=== PATIENT | male | born 1945 | race Caucasian/White ===

== ENCOUNTER 2020-05-25 10:04 | Outpatient (REF) | payer MEDICARE, SELFPAY ==
[2020-05-25 12:03] LABS: Estimated Average Glucose 123 mg/dL; Hemoglobin A1c % 5.9 %
== END 2020-05-25 10:05 | disposition home or self-care (01) ==
LOC: HO.MANLDS 10:04
PROVIDERS: PCP Physician Assistant; Visit Provider Physician Assistant
DX: R73.01 Impaired fasting glucose (principal)
CPT/HCPCS: 83036

== ENCOUNTER 2023-08-31 09:09 | Outpatient (REF) | payer MEDICARE, SELFPAY ==
[2023-08-31 13:10] LABS: MANUAL DIFF FLAG NO
[2023-08-31 13:33] LABS: Basophils Percent Auto 0.4 % (0-2); Eosinophils Absolute Auto 0.2 X10*3/uL (0.0-0.4); Eosinophils Percent Auto 3.6 % (0-4); Hematocrit 46.2 % (42.0-52.0); Hemoglobin 14.9 g/dl (14.0-18.0); Imm Gran Abs Auto 0.02 X10*3/uL (0.00-0.03); Imm Gran Pct Auto 0.4 % (0.0-0.4); Lymphocytes Absolute Auto 1.6 X10*3/uL (1.2-4.9); Lymphocytes Percent Auto 34.3 % (20-40); Mean Corpuscular HGB Conc 32.3 g/dl (31.0-36.0); Mean Corpuscular Hemoglobin 29.7 pg (27.0-33.0); Mean Corpuscular Volume 92.2 fL (80.0-98.0); Mean Platelet Volume 11.1 fL (9.4-12.4); Monocytes Absolute Auto 0.5 X10*3/uL (0.1-1.2); Monocytes Percent Auto 10.4 % (2-11); Neutrophils Absolute Auto 2.4 x10*3/uL (2.0-8.3); Neutrophils Percent Auto 50.9 % (45-73); Platelet Count 191 X10*3/uL (160-400); Red Blood Count 5.01 X10*6/uL (4.60-5.80); Red Cell Distribution Width 13.3 % (11.0-16.0); White Blood Count 4.7 X10*3/uL (4.8-10.8)
[2023-08-31 14:44] LABS: Alanine Aminotransferase 25 U/L (0-40); Albumin Level 3.8 g/dL (3.5-5.0); Alkaline Phosphatase 104 U/L (39-117); Anion Gap 10 (12-20); Aspartate Amino Transferase 24 U/L (5-37); Bilirubin Total 0.7 mg/dL (0.0-1.0); Blood Urea Nitrogen 16 mg/dL (9-16); Calcium 9.6 mg/dL (8.4-10.2); Carbon Dioxide 31 mmol/L (22-29); Chloride 104 mmol/L (96-108); Cholesterol 158 mg/dL (<200); Estimated Glomerular Filt Rate > 60; Glucose Random 104 mg/dL (60-115); HDL Cholesterol 70 mg/dL (>40); LDL Cholesterol Calculated 72 mg/dL (<100); Potassium 3.8 mmol/L (3.3-5.1); Sodium 141 mmol/L (135-145); Total Protein 6.4 g/dL (6.5-8.0); Triglycerides 82 mg/dL (<150)
[2023-08-31 15:00] LABS: TSH reflex Free T4 1.23 uIU/mL (0.32-4.0)
[2023-08-31 15:07] LABS: Prostate Specific Antigen 2.74 ng/mL (<0.05-4.0)
== END 2023-08-31 09:10 | disposition home or self-care (01) ==
LOC: HO.MANLDS 09:09
PROVIDERS: Visit Provider Internal Medicine
DX: I10 Essential (primary) hypertension (principal); R63.4 Abnormal weight loss; Z12.5 Encounter for screening for malignant neoplasm of prostate
CPT/HCPCS: 36415; 80053; 80061; 84153; 84443; 85025

== ENCOUNTER 2023-12-18 12:12 | Outpatient (REF) | payer MEDICARE, SELFPAY ==
[2023-12-18 18:29] LABS: Appearance Urine Clear; Color Urine Yellow; Glucose Urine UA 100 mg/dL (Negative); Leukocyte Esterase Urine Negative (Negative); Nitrite Urine Negative (Negative); PH 5.5 (5.0-9.0); UMIC TRIGGER UACC YES; Urine Blood Small (1+) (Negative); Urine Ketones Negative (Negative); Urine Protein 100 (2+) mg/dL (Neg-Trace)
[2023-12-18 18:44] LABS: Alanine Aminotransferase 39 U/L (0-40); Albumin Level 4.2 g/dL (3.5-5.0); Alkaline Phosphatase 105 U/L (39-117); Anion Gap 14 (12-20); Aspartate Amino Transferase 37 U/L (5-37); Bilirubin Total 0.8 mg/dL (0.0-1.0); Blood Urea Nitrogen 17 mg/dL (9-16); C Reactive Protein < 0.10 mg/dL (< or = 0.50); Carbon Dioxide 26 mmol/L (22-29); Chloride 106 mmol/L (96-108); Estimated Glomerular Filt Rate 54; Gamma Glutamyl Transpeptidase 27 U/L (11-51); Glucose Random 78 mg/dL (60-115); Iron 162 mcg/dL (45-160); Lipase 27 U/L (8-78); Percent Iron Saturation 52 % (15-50); Potassium 4.1 mmol/L (3.3-5.1); Sodium 142 mmol/L (135-145); Total Iron Binding Capacity 311 mcg/dL (228-428); Total Protein 7.1 g/dL (6.5-8.0); Unsaturated Iron Binding 149 ug/dL
[2023-12-18 18:49] LABS: Amylase 70 U/L (28-100)
[2023-12-18 18:58] LABS: Bacteria Urine None Seen (None Seen); Hyaline Casts Urine 0-2 /LPF (0-2); RBC Urine 0-2 /HPF (0-2); Squamous Epithelial Cell Urine 0-2 /HPF (0-2); WBC Urine 0-5 /HPF (0-5)
[2023-12-18 19:01] LABS: Folate 7.6 ng/mL (> or = 4.0); Vitamin B12 705 pg/mL (200-900)
[2023-12-18 19:09] LABS: Ferritin 401 ng/mL (20-250); Free T4 (Free Thyroxine) 0.82 ng/dL (0.71-1.85); Thyroid Stimulating Hormone 1.08 uIU/mL (0.32-4.0)
[2023-12-18 19:35] LABS: Erythrocyte Sedimentation Rate 7 MM/HR (0-15)
[2023-12-19 07:16] LABS: Estimated Average Glucose 123 mg/dL; Hemoglobin A1c % 5.9 % (<6.0)
[2023-12-21 02:54] LABS: Lyme Abs Screen <0.90 index
[2023-12-21 03:48] LABS: Thyroid Peroxidase Antibodies 2 IU/mL (<9)
[2023-12-31 09:18] LABS: A. Phagocytophilum Ab IgG <1:64 (<1:64); A. Phagocytophilum Ab IgM <1:20 (<1:20); E. Chaffeensis Ab IgG <1:64 (<1:64); E. Chaffeensis Ab IgM <1:20 (<1:20)
== END 2023-12-18 12:13 | disposition home or self-care (01) ==
LOC: HO.MANLDS 12:12
PROVIDERS: Visit Provider Physician Assistant
DX: R63.4 Abnormal weight loss (principal); R63.0 Anorexia; E53.8 Deficiency of other specified B group vitamins; Z12.5 Encounter for screening for malignant neoplasm of prostate
CPT/HCPCS: 36415; 80053; 81001; 82150; 82607; 82728; 82746; 82977; 83036; 83540; 83690; 84153; 84439; 84443; 85652; 86140; 86376; 86617; 86618; 86666

== ENCOUNTER 2023-12-24 13:30 | Outpatient (REF) | payer MEDICARE, SELFPAY ==
[2023-12-24 13:46] LABS: OBS Int Ctl Valid YES; OBS1 NEGATIVE (NEGATIVE)
== END 2023-12-24 13:31 | disposition home or self-care (01) ==
LOC: HO.MANLNP 13:30
PROVIDERS: Visit Provider Physician Assistant
DX: R63.0 Anorexia (principal); R63.4 Abnormal weight loss
CPT/HCPCS: 82272

== ENCOUNTER 2024-09-01 15:50 | Outpatient (REF) | payer MEDICARE, SELFPAY ==
[2024-09-01 17:42] LABS: MANUAL DIFF FLAG NO
[2024-09-01 17:52] LABS: Basophils Percent Auto 0.6 % (0-2); Eosinophils Absolute Auto 0.2 X10*3/uL (0.0-0.4); Eosinophils Percent Auto 3.7 % (0-4); Hematocrit 42.6 % (42.0-52.0); Hemoglobin 13.6 g/dl (14.0-18.0); Imm Gran Abs Auto 0.01 X10*3/uL (0.00-0.03); Imm Gran Pct Auto 0.2 % (0.0-0.4); Lymphocytes Absolute Auto 1.7 X10*3/uL (1.2-4.9); Lymphocytes Percent Auto 33.5 % (20-40); Mean Corpuscular HGB Conc 31.9 g/dl (31.0-36.0); Mean Corpuscular Hemoglobin 29.8 pg (27.0-33.0); Mean Corpuscular Volume 93.4 fL (80.0-98.0); Mean Platelet Volume 11.2 fL (9.4-12.4); Monocytes Absolute Auto 0.7 X10*3/uL (0.1-1.2); Monocytes Percent Auto 14.1 % (2-11); Neutrophils Absolute Auto 2.5 x10*3/uL (2.0-8.3); Neutrophils Percent Auto 47.9 % (45-73); Platelet Count 158 X10*3/uL (160-400); Red Blood Count 4.56 X10*6/uL (4.60-5.80); Red Cell Distribution Width 14.5 % (11.0-16.0); White Blood Count 5.1 X10*3/uL (4.8-10.8)
[2024-09-01 18:29] LABS: Alanine Aminotransferase 46 U/L (0-40); Albumin Level 3.9 g/dL (3.5-5.0); Alkaline Phosphatase 127 U/L (39-117); Anion Gap 10 (12-20); Aspartate Amino Transferase 50 U/L (5-37); Bilirubin Total 0.6 mg/dL (0.0-1.0); Blood Urea Nitrogen 18 mg/dL (9-16); Carbon Dioxide 25 mmol/L (22-29); Chloride 110 mmol/L (96-108); Estimated Glomerular Filt Rate 41; Glucose Random 121 mg/dL (60-115); Sodium 141 mmol/L (135-145); Total Protein 6.9 g/dL (6.5-8.0)
[2024-09-01 18:38] LABS: Erythrocyte Sedimentation Rate 7 MM/HR (0-15)
[2024-09-01 18:43] LABS: Thyroid Stimulating Hormone 1.64 uIU/mL (0.32-4.0)
[2024-09-01 18:47] LABS: Vitamin B12 946 pg/mL (200-900)
== END 2024-09-01 15:51 | disposition home or self-care (01) ==
LOC: HO.MANLDS 15:50
PROVIDERS: Visit Provider Internal Medicine
DX: G25.0 Essential tremor (principal); R53.83 Other fatigue
CPT/HCPCS: 36415; 80053; 82607; 84443; 85025; 85652

== ENCOUNTER 2024-11-04 16:18 | Outpatient (REF) | payer MEDICARE, SELFPAY ==
--- OUTSIDE RECORDS SUMMARY | 2024-11-04 16:37 | XMS_ITS | Continuity of Care Document ---
Author Organization [facility] Address [address] [place] [address] Assessment Encounter Date Assessment Date Assessment LastModified by Organization Details LastModified Time 11/04/2024 11/04/2024 [id number] [place] [id number] (LIFE TEACHER) MDM MODERATE MUST MEET 2 OUT OF 3 ELEMENTS: PROBLEMS, DATA OR RISK ELEMENT 1: PROBLEMS ADDRESSED 1 OR MORE CHRONIC ILLNESS WITH EXACERBATION OR 2 OR MORE STABLE CHRONIC ILLNESSES OR 1 UNDIAGNOSED NEW PROBLEM OR 1 ACUTE ILLNESS W/SYMPTOMS OR 1 ACUTE COMPLICATED INJURY ELEMENT 2: DATA MUST MEET 1 OF 3 CATEGORIES CATEGORY 1: REVIEW OF PRIOR EXTERNAL NOTES, REVIEW OF RESULTS, ORDERING OF EACH TEST, ASSESSMENT REQUIRING INDEPENDENT HISTORIAN OR CATEGORY 2: INDEPENDENT INTERPRETATION OF TESTS BY ANOTHER PHYSICIAN OR SPECIALIST OR CATEGORY 3: DISCUSSION OF MGT OR TEST INTERPRETATION W/EXTERNAL PHYSICIAN OR SPECIALIST ELEMENT 3: RISK RISK OF COMPLICATIONS AND/OR MORBIDITY OR MORTALITY OF PATIENT MANAGEMENT PROVIDER MUST THOROUGHLY DOCUMENT EACH ELEMENT THAT IS COVERED Not available 11/04/2024 16:12:25 Plan of Treatment Reminders Order Date Submit Date Provider Last Modified By Organization Details Last Modified Time Details Appointments FOLLOW UP 2024 03:45P M DR SANTIAGO Not available Not available Not available FOLLOW UP 2024 04:00P M DR SANTIAGO Not available Not available Not available Nurse Visit 2024 09:30A M [facility] Not available Not available Not available Nurse Visit 2024 09:30A [facility] Not available Not available Not available Lab CMP, serum or plasma 2024 025 [facility], [address] [place] [address], [place], [address], 11/04/2024 16:18:22 CBC 2024 025 [facility], [address] [place] [address], [place], [address], 11/04/2024 16:18:22 Referral None recorded. Procedures None recorded. Surgeries None recorded. Imaging None recorded. Medication Orders fluticaso ne 113 mcg-salme terol 14 mcg/actua tion breath activated powdr 2024 025 [id number], [address] [place], [place], [id number], 11/04/2024 16:15:17 Patient TargetsNo targets recorded. Patient Instructions Encounter Date Encounter Id Patient Instructions Last Modified By Organization Details Last Modified Time 11/04/2024 [id number] pulse oximetry* Not available 11/04/2024 16:14:42 Reason for Referral None Reported. Results Created Date Observation Date Name Description Value Unit Range Abnormal Flag Note LastModifiedBy Organization Detail LastModifiedTime 11/05/1911/04/2024 pulse oxime try* Result 98 Not Available [facility] [address] [facility] [address], [place], [address], 10/05/2024 08:30:04 10/07/19 25 10/06/2024 XR, chest , 2 view No observ ation record ed. [email or web address] [address], [address], 10/06/2024 14:42:13 10/10/19 25 10/09/2024 compl ete PFT w/ post [facility] hodil ator adeel metry * No observ ation record ed. [address], [address], 10/09/2024 15:48:04 10/10/19 25 10/09/2024 compl ete PFT w/ post [facility] hodil ator adeel metry * No observ ation record ed. [address], [place], [address], 10/09/2024 21:53:09 10/10/19 25 09/02/2024 compl ete PFT w/ post [facility] hodil ator adeel metry * No observ ation record ed. [address], [address], 10/09/2024 21:53:09 10/24/19 25 10/23/2024 [place], [facility] ardio gram, trans thora cic, compl ete, w/ color flow No observ ation record ed. [address], [address], 10/23/2024 22:50:11 Result Notes None recorded. Problems Name Problem SNOMED Code Status Onset Date Resolution Date Notes Provider Name and Address Organization Details Recorded Time Essential hypertens ion 08674770 Active 2018 Dyan berkowitz [facility] 5 10:20:31 Carpal tunnel syndrome of right wrist 941301097040 108 Active 2018 Dyan berkowitz [facility] Internal [facility] 5 10:20:31 Dyspnea 715363192 Active 2021 Dyan berkowitz [facility] Internal [facility] 5 10:20:31 Dizziness 271191245 Active 2021 Dyan berkowitz [facility] Internal [facility] 5 10:20:48 Cobalamin deficienc y 178428612 Active 2021 Dyan berkowitz [facility] 5 10:20:31 Asbestosi s 24348154 Active 2021 [facility] 5 10:20:48 Right inguinal hernia 423151364 Active 2021 Dyan berkowitz [facility] 5 10:20:31 Eczema 82626219 Active 2021 [facility] 10:20:31 Allergic rhinitis 61703095 Active 2017 [facility] 5 10:20:48 Asthma 942680606 Active 2017 [facility] 5 10:20:31 Coronary arteriosc lerosis 52624436 Active 2017 stent x2 11/200 8 [facility] 5 10:20:31 Diverticu litis of sigmoid colon 183941886 Active 2017 [facility] 10:20:48 Polyp of colon 91178533 Active 2017 1999,2 003,20 06 Dyan Portillo [facility] 5 10:20:48 Pneumonia 862969467 Active 2021 [facility] 10:20:48 Fatigue 85059294 [facility] 2022 [facility] 10:20:31 Nocturia 283634516 Active 2022 [facility] 10:20:31 Clavicle injury 881331707 [facility] 2022 [facility] 10:20:48 Acute bronchiti s 46301802 Active 2022 [facility] 10:20:48 Cough 51274085 Active 2023 [facility] 5 10:20:48 Essential tremor 423806544 [facility] 2023 [facility] 10:20:31 Hereditar y essential tremor 503975795 Active 2023 [facility] 5 10:20:31 Unintenti onal weight loss 620457154 Active 2023 Dyan Portillo null, [facility] 5 10:20:48 Pain of left acromiocl avicular joint 025343255 Active 2023 Dyan Portillo null, [facility] 5 10:20:48 COVID-19 897596879 Active 2023 Dyan Portillo null, [facility] 5 10:20:48 Lumbago with sciatica Active 2023 Dyan Portillo null, [facility] 10:20:31 Lumbago with sciatica 056952011 Active 2023 Dyan Portillo null, [facility] 10:20:31 Loss of appetite 34756172 Active 2023 Dyan Portillo null, [facility] 10:20:48 Unexplain ed weight loss 243720168 Active 2023 Dyan Portillo null, [facility] 10:20:48 Atypical chest pain 693714298 Active 2023 Dyan Portillo null, [facility] 10:20:31 Acute sinusitis 48825992 Active 2023 Dyan Portillo null, [facility] 5 10:20:48 Carpal tunnel syndrome of left wrist 909893124297 102 Active 2023 Dyan Portillo null, [facility] 10:20:31 Lesion of oral mucosa 068748368833 9106 Active 2023 Dyan berkowitz, [facility] 10:20:31 Dyspnea on exertion 22610324 Active 2024 Austin Santiago, DO [address] [facility], [place], [address], [facility] 5 15:37:46 Productiv e cough 75840911 Active 2024 DON ROWE [address] [place], [address], [facility] 5 12:02:22 Exacerbat ion of intermitt ent asthma 773839599 Active 2024 DON ROWE [address] [place], [address], [facility] 5 12:07:39 Moderate chronic obstructi ve pulmonary disease 059260116 Active 2024 Austin Santiago, DO [address] [facility], [place], [address], [facility] 5 16:11:30 Problem Notes None recorded. Procedures Surgical History Date Name Laterality Status Provider Name and Address Organization Details Recorded Time 6 Colonoscopy completed Yumiko Cervantes [facility] 12/04/2018 09:48:15 Imaging Results None recorded. Procedure Notes None recorded. Medical Equipment None Reported. Allergies No known drug allergies Medications Name Sig Start Date Stop Date Status Note LastModified by Organization Details LastModified Time losartan 50 mg tablet Take 1 tablet every day by oral route. 02/21 completed Not Available Not Available Not Available prednisone 10 mg tablet 4 tabs x 3 days3 tabs x 3 days 2 tabs x 3 days 1 tabs x 3 days 04/15 completed Not Available Not Available Not Available Vitamin B-12 1,000 mcg/mL injection solution Inject 1 mL every month by intramus cular route. 2024 active Not Available Not Available Not Avai lable doxycyclin e hyclate 100 mg capsule TAKE 1 CAPSULE BY MOUTH TWICE DAILY FOR 12 DAYS 10/11 completed Not Available Not Available Not Available azithromyc in 250 mg tablet TAKE 2 TABLETS (500 MG) BY ORAL ROUTE ONCE DAILY FOR 1 DAY THEN 1 TABLET (250 MG) BY ORAL ROUTE ONCE DAILY FOR 4 DAYS active Not Available Not Available No t Available benzonatat e 200 mg capsule TAKE 1 CAPSULE BY MOUTH THREE TIMES DAILY FOR 14 DAYS NEEDED 10/11 completed Not Available Not Available Not Available prednisone 20 mg tablet TAKE 2 TABLETS BY MOUTH EVERY DAY FOR 7 DAYS 10/11 completed Not Available Not Available Not Available atenolol 25 mg tablet Take 1 tablet every day by oral route for 90 days. 07/21 completed per pt takes 1/2 tablet Not Available Not Available Not Available valsartan 80 mg tablet Take 1 tablet every day by oral route for 90 days. 04/09 completed Not Available Not Available Not Available aspirin 81 mg tablet,del ayed release Take 1 tablet every day by oral route. active Not Available Not Available No t Available ketorolac 0.5 % eye drops 09/01 completed Not Available Not Available Not Available oxycodone- acetaminop hen 5 mg-325 mg tablet 11/28 completed Not Available Not Available Not Available propranolo l 10 mg tablet TAKE 1 TABLET BY MOUTH TWICE DAILY active Not Available Not Available No t Available tamsulosin 0.4 mg capsule TAKE 1 CAPSULE BY MOUTH EVERY DAY active Not Available Not Available No t Available Proctozone -HC 2.5 % topical cream perineal applicator APPLY A THIN LAYER TO THE AFFECTED AREA(S) BY TOPICAL ROUTE 2 times a day for 10 days 12/18 completed Not Available Not Available Not Available baclofen 10 mg tablet TAKE 1 TABLET BY MOUTH THREE TIMES DAILY FOR 7 DAYS NEEDED 04/15 completed Not Available Not Available Not Available cephalexin 500 mg capsule Take 1 capsule 3 times a day by oral route for 10 days. 08/22 completed Not Available Not Available Not Available losartan 25 mg tablet Take 1 tablet every day by oral route. active Not Available Not Available No t Available omeprazole 20 mg capsule,de layed release TAKE 1 CAPSULE BY MOUTH EVERY DAY 30 MINUTES BEFORE BREAKFAS T 12/17 completed Not Available Not Available Not Available montelukas t 10 mg tablet TAKE 1 TABLET BY MOUTH DAILY 2024 active Not Available Not Available Not Avai lable halobetaso l propionate 0.05 % topical cream APPLY THIN LAYER TOPICALL Y TO THE AFFECTED AREA DAILY. DO NOT EXCEED 50 GM PER WEEK OR 2 WEEKS DURATION 12/17 completed Not Available Not Available Not Available bisacodyl 5 mg tablet,del ayed release TAKE 4 TABLETS BY MOUTH WITH 8 OZ OF WATER ONCE DAILY THE DAY BEFORE PROCEDUR E 02/21 completed Not Available Not Available Not Available diclofenac sodium 50 mg tablet,del ayed release TAKE 1 TABLET BY MOUTH TWICE DAILY FOR 10 DAYS 12/17 completed Not Available Not Available Not Available methylpred nisolone 4 mg tablets in a dose pack FOLLOW PACKAGE DIRECTIO NS active Not Available Not Available No t Available albuterol sulfate HFA 90 mcg/actuat ion aerosol inhaler INHALE 1 TO 2 INHALATI ONS BY MOUTH EVERY 4 TO 6 HOURS NEEDED active Not Available Not Available No t Available amoxicilli n 875 mg-potassi um clavulanat e 125 mg tablet TAKE 1 TABLET BY MOUTH EVERY 12 HOURS FOR 7 DAYS 01/09 completed Not Available Not Available Not Available oxycodone 5 mg tablet TAKE 1 TABLET BY MOUTH EVERY 4 HOURS IF NEEDED FOR MODERATE PAIN OF 4 TO 6 ON A PAIN SCALE OF 0 TO 10 09/26 completed Not Available Not Available Not Available Bactrim DS 800 mg-160 mg tablet Take 1 tablet every 12 hours by oral route for 10 days. 04/18 completed Not Available Not Available Not Available rosuvastat in 40 mg tablet TAKE 1 TABLET BY MOUTH DAILY active Not Available Not Available No t Available ProAir HFA prn 09/29 completed Not Available Not Available Not Available peg 3350-elect rolytes 236 gram-22.74 gram-6.74 gram-5.86 gram solution 02/21 completed Not Available Not Available Not Available fluticason e 113 mcg-salmet willam 14 mcg/actuat ion breath activated powdr Inhale 1 puff twice a day by inhalati on route for 30 days. 2024 active Not Available Not Available Not Avai lable Fluzone High-Dose Quad 2020-21 (PF) 240 mcg/0.7 mL IM syringe 12/08 completed Not Available Not Available Not Available Paxlovid 300 mg (150 mg x 2)-100 mg tablets in a dose pack TK 2 NIRMATRE LVIR TS AND 1 RITONAVI R T TOGETHER PO TWICE DAILY 12/17 completed Not Available Not Available Not Available Vitals Date Recorded Body height Body mass index (BMI) Body weight Heart rate Oxygen saturation Oxygen saturation in Arterial blood by Pulse oximetry Systolic blood pressure Diastolic blood pressure Provider Name and Address Organization Details Last Updated DateTime 5 167.64 cm 25.3 kg/m2 08607 g 60 /min 98 % 98 % 120 mm[Hg] 70 mm[Hg] Destiny Camara [facility] 5 15:50:07 Social History Question Answer Notes LastModified by Organizat ion Details LastModified Time Tobacco Smoking Status Former Smoker Not Available [facility] 04/27/2020 03:36:24 What Was The Date Of Your Most Recent Tobacco Screening? 11/04/2024 [email or web address] Information not available 11/04/2024 Sex: Unknown Functional Status Question Answer Note LastModified by Organization D etails LastModified Time Do you or have you ever used any other forms of tobacco or nicotine? No [email or web address] Information not available 02/09/2023 Mental Status None recorded. Family History Nothing Reported. Medical History No medical history recorded. Immunizations Vaccine Type Date Status Note Provider Nam e and Address Organization Details Recorded Time COVID-19, mRNA, LNP-S, PF, 30 mcg/0.3 mL dose 2 completed Not Available [facility] 04/05/2022 08:55:30 Influenza, split virus, quadrivalent, preservative 2 completed Not Available [facility] 04/05/2022 08:55:30 SARS-COV-2 (COVID-19) vaccine, UNSPECIFIED 3 completed Nick berkowitz [facility] 04/27/2023 11:29:45 influenza, unspecified formulation 4 completed Austin Santiago, DO [address] [facility], [place], [address] 07/20/2023 16:21:09 Influenza, split virus, quadrivalent, preservative 0 completed Not Available [facility] 04/05/2022 08:55:30 COVID-19, mRNA, LNP-S, PF, 30 mcg/0.3 mL dose 1 completed Not Available [facility] 04/05/2022 08:55:30 COVID-19, mRNA, LNP-S, PF, 30 mcg/0.3 mL dose 1 completed Not Available [facility] 04/05/2022 08:55:30 Past Encounters Encounter ID Performer Location Encounter Start Date Encounter Closed Date Diagnosis/Indication Diagnosis SNOMED-CT Code Diagnosis ICD10 Code Diagnosis Note [id number] Austin Santiago DO [facility] [address] [facility],[place] [address] 11/04/2024 15:44:28 11/04/2024 16:25:31 Asthma 324553223 J45.20 quiet no issues Cobalamin deficiency 190 595950 E53.8 Need to recheck next visit Essential hypertension 73127940 I10 on losartan for his bp and his BP very well controlled off the atenolol Depression screening 171 983068 Z13.31 neg Moderate c hronic obstructive pulmonary disease 785947327 J44.9 [id number] Austin Santiago DO [facility] [address] [facility],[place] [address] 10/31/2024 09:54:52 10/31/2024 10:53:40 Cobalamin deficiency 749455995 E53.8 Need to recheck next visit Health Concerns Section Related Observation LastModified by Organization Detai ls LastModified Time None Recorded Concern Status LastModified by Organization Details LastModified Time None Recorded Payers Encounter Date Sequence Insurance Name Policy Number Policy Ramirez Covered Member ID Ramirez Member ID Guarantor Name 11/04/[address] [place] [address] [id number] Erick Stephens [id number] Erick Stephens Notes Date Note Type Note Provider Name and Address Organization Details Recorded Time 5 text/htm l Care Management - AsthmaReported bypatient.Severity:impro ving; does not interfere with daily activities; does not disturb sleep; does not cause nighttime awakening Associated Symptoms:no fever; no fatigue; no irritability; no cough; normal appetite; no change in productivityCare Management - HypertensionReported bypatient.Self Care:not under emotional stress Severity:symptoms are improving; does not interfere with daily activities Associated Symptoms:no dizziness; no lightheadedness; no chest pain; no shortness of breath; no palpitations; no edema; no calf muscle cramps; no blurred vision; no confusion; no headaches; no fatigue Austin Santiago DO [address] [place] [address], [address], [place] [facility] 11/04/2024 16:17:15
--- OUTSIDE RECORDS SUMMARY | 2024-11-04 16:38 | XMS_ITS | Continuity of Care Document ---
Author Organization [facility] Address [address] [place] [address] Assessment No assessment recorded. Plan of Treatment Reminders Order Date Submit Date Provider Last Modified By Organization Details Last Modified Time Details Appointments FOLLOW UP 2024 03:45P M DR SANTIAGO Not available Not available Not available FOLLOW UP 2024 04:00P M DR SANTIAGO Not available Not available Not available Nurse Visit 2024 09:30A M [facility] Not available Not available Not available Nurse Visit 2024 09:30A M [facility] Not available Not available Not available Lab None recorded. Referral None recorded. Procedures None recorded. Surgeries None recorded. Imaging None recorded. Medication Orders Vitamin B-12 1,000 mcg/mL injection solution [address] [id number] [address], [place], [id number], 10/31/2024 10:22:31 Patient TargetsNo targets recorded. Patient InstructionsNo instructions recorded. Reason for Referral None Reported. Results Created Date Observation Date Name Description Value Unit Range Abnormal Flag Note LastModifiedBy Organization Detail LastModifiedTime 10/07/1910/06/2024 XR, chest , 2 view No observ ation record ed. [email or web address] [address], [address], 10/06/2024 14:42:13 10/10/19 25 10/09/2024 compl ete PFT w/ post [facility] hodil ator adeel metry * No observ ation record ed. [address], [address], 10/09/2024 15:48:04 10/10/19 25 10/09/2024 compl ete PFT w/ post [facility] hodil ator adeel metry * No observ ation record ed. [address], [address], 10/09/2024 21:53:09 10/10/19 25 09/02/2024 compl ete PFT w/ post [facility] hodil ator adeel metry * No observ ation record ed. [address], [address], 10/09/2024 21:53:09 10/24/19 25 10/23/2024 US, echoc ardio gram, trans thora cic, compl ete, w/ color flow No observ ation record ed. [address], [address], 10/23/2024 22:50:11 Result Notes None recorded. Problems Name Problem SNOMED Code Status Onset Date Resolution Date Notes Provider Name and Address Organization Details Recorded Time Essential hypertens ion 53715011 Active 2018 Dyan berkowitz [facility] 5 10:20:31 Carpal tunnel syndrome of right wrist 709121421490 108 Active 2018 Dyan berkowitz [facility] 5 10:20:31 Dyspnea 758686046 Active 2021 Dyan berkowitz [facility] 5 10:20:31 Dizziness 031095263 Active 2021 Dyan berkowitz [facility] 5 10:20:48 Cobalamin deficienc y 974323505 Active 2021 Dyan berkowitz [facility] 5 10:20:31 Asbestosi s 67058445 Active 2021 Dyan berkowitz, [facility] 5 10:20:48 Right inguinal hernia 816352795 Active 2021 Dyan Portillo null, [facility] 5 10:20:31 Eczema 27160208 [facility] Allergic rhinitis 88235844 Active 2017 Dyan Portillo null, [facility] 5 10:20:48 Asthma 377590437 [facility] 10:[facility] Coronary arteriosc lerosis 91514863 Active 2017 [facility] 10:[facility] Diverticu litis of sigmoid colon 810892013 [facility] 10:20:[facility] Polyp of colon 73263115 Active 2017 1999,2 003,20 06 [facility] 10:20:[facility] Pneumonia 124451619 [facility] 10:[facility] Fatigue 00192289 [facility] 10:20:[facility] Nocturia 640331766 Active 2022 Dyan berkowitz, [facility] 5 10:20:31 Clavicle injury 412266787 [facility] 10:20:[facility] Acute bronchiti s 33799721 Active 2022 Dyan berkowitz, [facility] 5 10:20:48 Cough 56556857 [facility] 10:20:48 Essential tremor 562809191 Active 2023 Dyan Portillo null, [facility] 5 10:20:31 Hereditar y essential tremor 255716883 Active 2023 Dyan Portillo null, [facility] 5 10:20:31 Unintenti onal weight loss 677289444 Active 2023 Dyan Portillo null, [facility] 5 10:20:48 Pain of left acromiocl avicular joint 956125674 Active 2023 Dyan Portillo null, [facility] 5 10:20:48 COVID-19 512634616 Active 2023 Dyan Portillo null, [facility] 5 10:20:48 Lumbago with sciatica 134216972 Active 2023 Dyan Portillo null, [facility] 5 10:20:31 Lumbago with sciatica 509228841 Active 2023 Dyan Portillo null, [facility] 5 10:20:31 Loss of appetite 71463823 Active 2023 Dyan Portillo null, [facility] 5 10:20:48 Unexplain ed weight loss 391063237 Active 2023 Dyan Portillo null, [facility] 5 10:20:48 Atypical chest pain 988254081 Active 2023 Dyan Portillo null, [facility] 5 10:20:31 Acute sinusitis 80971087 Active 2023 Dyan Portillo null, [facility] 5 10:20:48 Carpal tunnel syndrome of left wrist 839850805355 102 Active 2023 Dyan Portillo null, [facility] 5 10:20:31 Lesion of oral mucosa 911125725515 9106 [facility] 5 10:20:31 Dyspnea on exertion 30461721 Active 2024 Austin Santiago DO [address] [place] [address], [phone], [facility] 5 15:37:46 Productiv e cough 02176372 Active 2024 DON ROWE [address] [place] [address], [phone], [facility] 5 12:02:22 Exacerbat ion of intermitt ent asthma 393917095 Active 2024 DON ROWE [address] [place] [address], [phone], [facility] 5 12:07:39 Moderate chronic obstructi ve pulmonary disease 590669637 Active 2024 Austin Santiago DO [address] [place] [address], [address], [facility] 5 16:11:30 Problem Notes None recorded. Procedures Surgical History Date Name Laterality Status Provider Name and Address Organization Details Recorded Time 6 Colonoscopy completed Yumiko Cervantes [facility] 12/04/2018 09:48:15 Imaging Results None recorded. Procedure [...] Available Not Avai lable Fluzone High-Dose Quad 2020- (PF) 240 mcg/0.7 mL IM syringe 12/08 completed Not Available Not Available Not Available Paxlovid 300 mg (150 mg x 2)-100 mg tablets in a dose pack TK 2 NIRMATRE LVIR TS AND 1 RITONAVI R T TOGETHER PO TWICE DAILY 12/17 completed Not Available Not Available Not Available Vitals None Recorded Social History Question Answer Notes LastModified by Organizat ion Details LastModified Time Tobacco Smoking Status Former Smoker Not Available [facility] 04/27/2020 03:36:24 What Was The Date Of Your Most Recent Tobacco Screening? 11/04/2024 [email or web address] Information not available 11/04/2024 Sex: Unknown Functional Status Question Answer Note LastModified by Organization D etails LastModified Time Do you or have you ever used any other forms of tobacco or nicotine? No [email or web address] Information not available 02/09/2023 Mental Status None recorded. Family History Nothing Reported. Medical History No medical history recorded. Immunizations Vaccine Type Date Status Note Provider Nam e and Address Organization Details Recorded Time COVID-19, mRNA, LNP-S, PF, 30 mcg/0.3 mL dose 2 completed Not Available [facility] 04/05/2022 08:55:30 Influenza, split virus, quadrivalent, preservative 2 completed Not Available [facility] 04/05/2022 08:55:30 SARS-COV-2 (COVID-19) vaccine, UNSPECIFIED 3 completed Nick Santiago [facility] 04/27/2023 11:29:45 influenza, unspecified formulation 4 completed Austin Santiago, DO [address] [place], [address], [facility] 07/20/2023 16:21:09 Influenza, split virus, quadrivalent, preservative 0 completed Not Available [facility] 04/05/2022 08:55:30 COVID-19, mRNA, LNP-S, PF, 30 mcg/0.3 mL dose 1 completed Not Available [facility] 04/05/2022 08:55:30 COVID-19, mRNA, LNP-S, PF, 30 mcg/0.3 mL dose 1 completed Not Available [facility] 04/05/2022 08:55:30 Past Encounters Encounter ID Performer Location Encounter Start Date Encounter Closed Date Diagnosis/Indication Diagnosis SNOMED-CT Code Diagnosis ICD10 Code Diagnosis Note [id number] Austin ArronMisael Cheyenne [facility] [address] [address] 10/01/2024 13:24:02 10/01/2024 14:41:46 Cobalamin deficiency 410082525 E53.8 Need to recheck next visit [id number] Austin ArronMisael Cheyenne [facility] [address] [address] 10/03/2024 11:47:59 10/03/2024 16:07:49 Productive cough 86467194 R05.1 has echo scheduledw ill have him also do a CXR Exacerbati on of intermittent asthma 250616726 J45.21 start on zpak and medrol Dyspnea on exertion 6084 5006 R06.09 echo scheduled already for thisdid tell pt if it worsens sig or develops chest pain to go to the ER this week [id number] Austin Santiago [facility] [address] [address] 10/31/2024 09:54:52 10/31/2024 10:53:40 Cobalamin deficiency 817079268 E53.8 Need to recheck next visit Health Concerns Section Related Observation LastModified by Organization Carli cuevas LastModified Time None Recorded Concern Status LastModified by Organization Details LastModified Time None Recorded Payers Encounter Date Sequence Insurance Name Policy Number Policy Ramirez Covered Member ID Ramirez Member ID Guarantor Name 10/31/2024 1 [facility] [id number] Erick Stephens [id number] Erick Stephens
--- OUTSIDE RECORDS SUMMARY | 2024-11-04 16:38 | XMS_ITS | Data Portability ---
Author Organization [facility] Address [address] [place] [address] Assessment Encounter Date Assessment Date Assessment LastModified by Organization Details LastModified Time 09/01/2024 09/01/2024 [id number] [place] [id number] ([employer]ER) MDM HIGH MUST MEET 2 OUT OF 3 ELEMENTS: PROBLEMS, DATA OR RISK ELEMENT 1: PROBLEMS 1 OR MORE CHRONIC ILLNESS W/SEVERE EXACERBATION, PROGRESSION MAY REQUIRE HOSPITAL LEVEL CARE OR 1 ACUTE OR CHRONIC ILLNESS OR INJURY THAT POSES A THREAT TO LIFE OR BODILY FUNCTION ELEMENT 2: DATA: MUST MEET 2 OF 3 CATEGORIES CATEGORY 1 REVIEW OF PRIOR EXTERNAL NOTES REVIEW OF THE RESULTS ORDERING OF EACH TEST ASSESSMENT REQUIRING INDEPENDENT HISTORIAN(S) CATEGORY 2: INDEPENDENT INTERPRETATION OF TESTS BY ANOTHER PROVIDER/SPECIALI ST CATEGORY 3: DISCUSSION OF MGT OR TEST INTERPRETATION W/EXTERNAL PHYSICIAN/SPECIAL IST ELEMENT 3: RISK HIGH RISK OF MORBIDITY FROM ADDITIONAL DIAGNOSTIC TESTING OR TREATMENT PROVIDER MUST THOROUGHLY DOCUMENT EACH ELEMENT THAT IS COVERED The patient presented to their appointment today for multiple concerns requiring moderate to high-level decision making and took over 40-45 minutes for an adequate and appropriate history, exam, assessment and treatment plan. This appointment was done with an established patient. Not available 09/01/2024 15:34:30 11/04/2024 11/04/2024 [id number] [place] [id number] ([employer]) MDM MODERATE MUST MEET 2 OUT OF [...] Last Modified Time Details Appointments FOLLOW UP 15 2024 03:45P M DR SANTIAGO Not available Not available Not available FOLLOW UP 15 2024 04:00P M DR SANTIAGO Not available Not available Not available Nurse Visit 15 2024 09:30A [facility] Not available Not available Not available Nurse Visit 15 2024 09:30A [facility] Not available Not available Not available Lab CMP, serum or plasma 2024 025 [facility], [address] [place] [address], [address], 11/04/2024 16:18:22 CBC 2024 025 [facility], [address] [place] [address], [place], [address], 11/04/2024 16:18:22 erythrocy te sedimenta tion rate by nadiare n method 2024 025 [facility], [address] [place] [address], [place], [address], 09/01/2024 15:50:39 vitamin B12, serum 2024 025 [facility], [address] [place] [address], [address], 09/01/2024 15:50:39 TSH, serum or plasma 2024 025 [facility], [address] [place] [address], [address], 09/01/2024 15:50:39 CMP, serum or plasma 2024 [facility], [address] [facility], [place], [address], 09/01/2024 15:50:39 CBC w/ auto diff 2024 [facility], [address] [facility], [place], [address], 09/01/2024 15:50:39 Referral None recorded. Procedures None recorded. Surgeries None recorded. Imaging XR, chest, 2 view 2024 [facility] Central Scheduling (Not Breast), [address] [place] [address], [address], 10/06/2024 14:14:07 US, echocardi ogram, transthor acic, complete, w/ color flow 2024 [facility], [address] [place], [address], 09/15/2024 08:58:13 Medication Orders fluticaso ne 113 mcg-salme terol 14 mcg/actua tion breath activated powdr 2024 [id number], [address] [place], [place], [id number], 11/04/2024 16:15:17 Vitamin B-12 1,000 mcg/mL injection solution 2024 [facility] #65627, [address] [place], [place], [id number], 10/31/2024 10:22:31 Zithromax Z-Elias 250 mg tablet 2024 025 [facility] #34004, [address] [place], [place], [id number], 10/03/2024 12:03:37 Medrol (Elias) 4 mg tablets in a dose pack 2024 025 [facility] #66805, [address] [place], [place], [id number], 10/03/2024 12:03:36 Vitamin B-12 1,000 mcg/mL injection solution 2024 025 [facility]11923, [address] [place], [place], [id number], 10/01/2024 15:08:56 Patient TargetsNo targets recorded. Patient Instructions Encounter Date Encounter Id Patient Instructions Last Modified By Organization Details Last Modified Time 09/01/2024 [id number] dizziness: care instructions Not available 09/01/2024 15:45:20 pulse oximetry* Not available 09/01/2024 15:45:20 complete PFT w/ post bronchodilator spirometry* hrubner Not available 09/08/2024 08:37:04 high blood pressure: care instructions Not available 09/01/2024 15:45:20 learning about high blood pressure Not available 09/01/2024 15:45:20 11/04/2024 [id number] pulse oximetry* Not available 11/04/2024 16:14:42 Reason for Referral None Reported. Results Created Date Observation Date Name Description Value Unit Range Abnormal Flag Note LastModifiedBy Organization Detail LastModifiedTime 09/02/1909/01/2024 pulse oxime try* Result 98% Not Available [facility] [address] [place] [address] [address], [place], [address], 08/27/2024 10:19:38 11/05/1911/04/2024 pulse oxime try* Result 98 Not Available [facility] [address] [facility] [address], [place], [address], 10/05/2024 08:30:04 10/07/19 25 10/06/2024 XR, chest , 2 view No observ ation record ed. [email or web address] [address], [address], 10/06/2024 14:42:13 10/10/19 25 10/09/2024 compl [facility] adeel metry * No observ ation record ed. [address], [address], 10/09/2024 15:48:04 10/10/19 25 10/09/2024 compl ete PFT w/ [facility] hodil ator adeel metry * No observ ation record ed. [address], [address], 10/09/2024 21:53:09 10/10/19 25 09/02/2024 compl ete PFT w/ [facility] hodil ator adeel metry * No observ ation record ed. [address], [address], 10/09/2024 21:53:09 10/24/19 25 10/23/2024 , [facility] ardio gram, trans thora cic, compl ete, w/ color flow No observ ation record ed. [address], [address], 10/23/2024 22:50:11 Result Notes None recorded. Problems Name Problem SNOMED Code Status Onset Date Resolution Date Notes Provider Name and Address Organization Details Recorded Time Essential hypertens ion 76055765 Active 2018 Dyan berkowitz [facility] 5 10:20:31 Carpal tunnel syndrome of right wrist 313939846402 108 Active 2018 Dyan berkowitz [facility] 10:20:31 Dyspnea 498600546 Active 2021 Dyan berkowitz [facility] 10:20:31 Dizziness 969929256 Active 2021 Dyan berkowitz, [facility] 5 10:20:48 Cobalamin deficienc y 190197653 Active 2021 Dyananitha Portillo woo, [facility] 5 10:20:31 Asbestosi s 36197500 [facility] 2021 [facility] 10:20:48 Right inguinal hernia 793086912 Active 2021 Dyan Portillo null, [facility] 5 10:20:31 Eczema 17729620 Active 2021 [facility] 5 10:20:31 Allergic rhinitis 39102983 Active 2017 [facility]anitha [facility] 5 10:20:48 Asthma 366651100 Active 2017 [facility] 5 10:20:31 Coronary arteriosc lerosis 63867327 Active 2017 stent x2 11/200 8 Dyan [facility] 5 10:20:31 Diverticu litis of sigmoid colon 818677244 Active 2017 Dyananitha [facility] 5 10:20:48 Polyp of colon 01314115 Active 2017 1999,2 003,20 06 Dyan [facility] 5 10:20:48 Pneumonia 760909170 Active 2021 [facility] 5 10:20:48 Fatigue 52597071 Active 2022 [facility] 5 10:20:31 Nocturia 473476338 Active 2022 [facility] 5 10:20:31 Clavicle injury 393508175 [facility] 2022 [facility] 5 10:20:48 Acute bronchiti s 24238833 Active 2022 Dyan Portillo null, [facility] 5 10:20:48 Cough 19822253 Active 2023 Dyan Portillo null, [facility] 5 10:20:48 Essential tremor 806366934 Active 2023 Dyan Portillo null, [facility] 5 10:20:31 Hereditar y essential tremor 426694110 Active 2023 Dyan Portillo null, [facility] 5 10:20:31 Unintenti onal weight loss 061583492 Active 2023 Dyan Portillo null, [facility] 5 10:20:48 Pain of left acromiocl avicular joint 098624628 Active 2023 Dyan Portillo null, [facility] 5 10:20:48 COVID-19 078653150 Active 2023 Dyan Portillo null, [facility] 5 10:20:48 Lumbago with sciatica 449108105 Active 2023 Dyan Portillo null, [facility] 5 10:20:31 Lumbago with sciatica 994402125 Active 2023 Dyan Portillo null, [facility] 5 10:20:31 Loss of appetite 09443967 Active 2023 Dyan Portillo null, [facility] 5 10:20:48 Unexplain ed weight loss 213461511 Active 2023 Dyan Portillo null, [facility] 5 10:20:48 Atypical chest pain 129900399 Active 2023 Dyan Portillo null, [facility] 5 10:20:31 Acute sinusitis 85627890 Active 2023 Dyan Portillo null, [facility] 5 10:20:48 Carpal tunnel syndrome of left wrist 551656948658 102 Active 2023 Dyan berkowitz [facility] 5 10:20:31 Lesion of oral mucosa 044903868274 9106 Active 2023 Dyan berkowitz, [facility] 5 10:20:31 Dyspnea on exertion 02677846 Active 2024 Austin Santiago, DO [address] [place] [address], [address], [facility] 5 15:37:46 Productiv e cough 08587051 Active 2024 DON ROWE [address] [place] [address], [address], [facility] 5 12:02:22 Exacerbat ion of intermitt ent asthma 748704615 Active 2024 DON ROWE [address] [place] [address], [address], [facility] 5 12:07:39 Moderate chronic obstructi ve pulmonary disease 384633315 Active 2024 Austin Santiago, DO [address] [place] [address], [address], [facility] 16:11:30 Problem Notes None recorded. Procedures Surgical History Date Name Laterality Status Provider Name and Address Organization Details Recorded Time 6 Colonoscopy completed Yumiko Cervantes [facility] 12/04/2018 09:48:15 Imaging Results Imaging Date Name Status LastModified by Organization Details LastModified Time 10/06/2024 XR, chest, 2 view completed [email or web address] [address], [address], 10/06/2024 14:42:13 10/09/2024 complete PFT w/ post bronchodilator spirometry* completed [address], [address], 10/09/2024 15:48:04 10/09/2024 complete PFT w/ post bronchodilator spirometry* completed [address], [address], 10/09/2024 21:53:09 09/02/2024 complete PFT w/ post bronchodilator spirometry* completed [address], [address], 10/09/2024 21:53:09 10/23/2024 US, echocardiogram, transthoracic, complete, w/ color flow completed [address], [place], [address], 10/23/2024 22:50:11 Procedure Notes None recorded. Medical Equipment None [...] Available Not Avai lable Fluzone High-Dose Quad 2020 (PF) 240 mcg/0.7 mL IM syringe 12/08 [...] Details Last Updated DateTime 5 167.64 cm 25.4 kg/m2 19072.1 6 g 62 /min 98 % 98 % 116 mm[Hg] 58 mm[Hg] [facility] 5 14:58:18 Date Recorded Body height Heart rate Oxygen saturation Oxygen saturation in Arterial blood by Pulse oximetry Provider Name and Address Organization Details Last Updated DateTime 10/03/2024 167.64 cm 56 /min 98 % 98 % Dyan Portillo [facility] 10/03/2024 11:54:30 Date Recorded Body height Body mass index (BMI) Body weight Heart rate Oxygen saturation Oxygen saturation in Arterial blood by Pulse oximetry Systolic blood pressure Diastolic blood pressure Provider Name and Address Organization Details Last Updated DateTime 167.64 cm 25.3 kg/m2 79331 g 60 /min 98 % 98 % 120 mm[Hg] 70 mm[Hg] Destiny Jax [facility] 5 15:50:07 Social History Question Answer Notes LastModified by Organizat ion Details LastModified Time Tobacco Smoking Status Former Smoker Not Available [facility] 04/27/2020 03:36:24 What Was The Date Of Your Most Recent Tobacco Screening? 11/04/2024 [email or web address] Information not available 11/04/2024 Sex: Unknown Functional Status Question Answer Note LastModified by Organization D etails LastModified Time Do you or have you ever used any other forms of tobacco or nicotine? No [email or web address] Information not available 02/09/2023 Mental Status None recorded. Family History Nothing Reported. Medical History No medical history recorded. Immunizations Vaccine Type Date Status Note Provider Nam e and Address Organization Details Recorded Time COVID-19, mRNA, LNP-S, PF, 30 mcg/0.3 mL dose 2 completed Not Available [facility] 04/05/2022 08:55:30 Influenza, split virus, quadrivalent, preservative 2 completed Not Available [facility] 04/05/2022 08:55:30 SARS-COV-2 (COVID-19) vaccine, UNSPECIFIED 3 completed Nick berkowitz [facility] 04/27/2023 11:29:45 influenza, unspecified formulation 4 completed Austin Santiago, DO [address] [place] [address], [place], [address], [facility] 07/20/2023 16:21:09 Influenza, split virus, quadrivalent, preservative 0 completed Not Available [facility] 04/05/2022 08:55:30 COVID-19, mRNA, LNP-S, PF, 30 mcg/0.3 mL dose 1 completed Not Available [facility] 04/05/2022 08:55:30 COVID-19, mRNA, LNP-S, PF, 30 mcg/0.3 mL dose 1 completed Not Available [facility] 04/05/2022 08:55:30 Past Encounters Encounter ID Performer Location Encounter Start Date Encounter Closed Date Diagnosis/Indication Diagnosis SNOMED-CT Code Diagnosis ICD10 Code Diagnosis Note [id number] Austin Santiago [facility] [address] [place] [address],[place] [address] 10/03/2017 08:58:44 10/03/2017 09:13:28 Cobalamin deficiency 891345575 E53.8 [id number] Austin Santiago [facility] [address],[place] [address] 11/02/2017 09:02:44 11/02/2017 10:57:14 Cobalamin deficiency 652496647 E53.8 [id number] Austin Santiago [facility] [address] [facility],[place] [address] 11/28/2017 09:07:55 11/28/2017 10:29:51 Coronary arteriosclerosis 77663861 I25.10 doing ok overall no cp no sob Asthma 376850506 J45.90 9 here for rechk doing well not using proair etc peak flows reviewed pulse ox Foot pain 69448575 M79.6 72 pain is easing up and will follow and call if worse wear good supportive shoes [id number] Austin Santiago [facility] [address] [facility], [place] [address] 12/03/2017 09:03:15 12/03/2017 09:18:38 Cobalamin deficiency 423921518 E53.8 [id number] Austin Santiago [facility] [address] [facility], [place] [address] 01/02/2018 09:12:31 01/02/2018 10:59:31 Cobalamin deficiency 273363698 E53.8 [id number] Austin Santiago [facility] [address], [facility] [place] [address] 01/30/2018 08:59:09 01/30/2018 10:01:44 Cobalamin deficiency 554897340 E53.8 [id number] Austin Santiago [facility] [address], [place] [address] 02/27/2018 09:09:40 02/27/2018 14:02:18 Cobalamin deficiency 742508429 E53.8 [id number] Austin Santiago [facility] [address],[place] [address] 03/27/2018 08:57:34 03/27/2018 11:13:02 Cobalamin deficiency 064741447 E53.8 [id number] Austin Santiago [facility] [address],[place] [address] 04/24/2018 09:17:08 04/24/2018 10:23:29 Cobalamin deficiency 021135261 E53.8 [id number] Austin Santiago [facility] [address],[facility] [place] [address] 05/27/2018 08:59:26 05/27/2018 15:32:41 Cobalamin deficiency 603425935 E53.8 [id number] Austin Santiago [facility] [address],[facility] [place] [address] 06/14/2018 14:12:13 06/14/2018 15:59:47 Adult health examination 910001539 Z00.00 doing great no issues Active or passive immunization 254721281 Z23 [facility] pneum[facility]ax Abdominal aortic aneurysm screening 103147946 Z13.6 will order Hepatitis C screening 41 6241006 Z11.59 Coronary arteriosclerosis 51255044 I25.10 doing ok overall no cp no sob Eczema 53754752 L30.9 [id number] Austin Santiago [facility] [address] [facility] [address],[place] [address] 06/26/2018 10:12:09 06/26/2018 11:12:08 Cobalamin deficiency 768665206 E53.8 [id number] Austin Santiago [facility] [address] [facility] [address],[place] [address] 07/29/2018 13:26:50 07/29/2018 14:20:46 Cobalamin deficiency 976804763 E53.8 [id number] Austin Santiago [facility] [address] [facility] [address] [place] [address] 08/14/2018 15:27:15 08/14/2018 15:56:02 Nausea 339812657 R11.0 unclear ? reflux Asthma 670796510 J45.90 9 stable Essential hypertension 99510065 I10 stable Gastroesop hageal reflux disease 465055000 K21.9 [id number] Austin Santiago [facility] [address] [facility] [address] [address] [place] [address] 08/28/2018 09:26:30 08/28/2018 10:07:50 Cobalamin deficiency 916912594 E53.8 [id number] Austin Santiago [facility] [address] [facility] [address],[place] [address] 09/27/2018 09:27:40 09/27/2018 11:49:02 Cobalamin deficiency 428022437 E53.8 [id number] Austin Santiago [facility] [address] [facility] [address] [address],[place] [address] 10/28/2018 09:31:10 10/28/2018 15:08:17 Cobalamin deficiency 820422490 E53.8 [id number] Austin Santiago [facility] [address] [facility] [address],[place] [address] 12/04/2018 09:23:46 12/04/2018 09:57:56 Essential hypertension 45926570 I10 excellent but am worried about the bradycard and his sx may be the atenolol and will need to decrease dose to 12.5 Cobalamin deficiency 190 261644 E53.8 needs labwork first Asthma 144385273 J45.90 9 here for chelsiek doing well not using proair etc peak flows reviewed pulse o will need to change albut to ventolin Fatigue 26469235 R53.83 could this be atenolol along with bradycard effects ? will decrease atenolol to 12.5 Bradycardia 14945440 R00 .1 feel this is secondary to his atenolol will decrease dose [place] [id number] Austin Santiago [facility] [address] [facility],[place] [address] 12/18/2018 14:10:00 12/18/2018 15:19:51 Coronary arteriosclerosis 59265934 I25.10 doing ok overall no cp no sob Essential hypertension 91097372 I10 excellent but was worried about the bradycard and his sx may be the atenolol and decreased the dose to 12.5 and he has done very well with thisl. Acute rommel l insufficiency 113158847 N28.9 could this be from chda;[place] n [id number] Austin Santiago [facility] [address] [place] [address] 01/03/2019 09:29:16 01/03/2019 11:49:40 Cobalamin deficiency 134644206 E53.8 needs labwork first [id number] Austin Santiago [facility] [address] [place] [address] 02/03/2019 09:30:23 02/03/2019 12:13:33 Cobalamin deficiency 232521942 E53.8 needs labwork first [id number] Austin Santiago [facility] [address] [place] [address] 03/03/2019 13:24:38 03/03/2019 14:19:41 Asthma 708892724 J45.909 here for rechk doing well not using proair etc peak flows reviewed will need to change albut to ventolin Essential hypertension 42018019 I10 excellent dose at 12.5 and he has done very well with thisl. Coronary arteriosclerosis 46288688 I25.10 doing ok overall no cp no sob Carpal vianca parth syndrome of right wrist 4678980865 74955 G56.01 Atopic dermatitis 623618 01 [place]20[place] [id number] Austin Santiago [facility] [address] [facility] [address] [address] [place] [address] 03/07/2019 09:24:55 03/07/2019 09:34:02 Cobalamin deficiency 802148600 E53.8 needs labwork first [id number] Austin Santiago [facility] [address] [facility] [address] [address] [place] [address] 04/09/2019 09:13:57 04/09/2019 10:33:26 Abscess 486296861 L02.91 warm compress do not squeeze, need swelling to decrease so we can anesthetiz e properly Asthma 613061034 J45.90 9 stable Essential hypertension 25768034 I10 stable [id number] Austin Santiago [facility] [address] [facility] [address] [address] [address] 04/18/2019 13:54:43 04/18/2019 15:16:40 Abscess 779490578 L02.91 acute infection appears resolved no further i&d required will monitor for return Essential hypertension 73871284 I10 stable Asthma 231450065 J45.90 9 stable Allergic rhinitis 699901 04 J30.9 Xerosis du e to atopic dermatitis 409590395 L85.3 moisturize consider otc allergy [id number] Austin Santiago [facility] [address] [facility] [address] [address] [place] [address] 05/09/2019 09:27:29 05/09/2019 09:31:53 Cobalamin deficiency 769924026 E53.8 needs labwork first [id number] Austin Santiago [facility] [address] [facility] [address] [address] [place] [address] 06/16/2019 09:25:30 06/16/2019 09:35:51 Cobalamin deficiency 075772175 E53.8 needs labwork first [id number] Austin HellerMisael Santiago [facility] [address] [facility] [address],[place] [address] 07/21/2019 09:52:11 07/21/2019 10:38:40 Essential hypertension 69393698 I10 Atenolol stopped by Cards BP very well controlled Coronary arteriosclerosis 19677274 I25.10 doing ok overall no cp no sob Asthma 780168764 J45.90 9 Doing very well Discussed importance of influenza vaccine Folliculitis 20050745 L7 3.9 Across upper back and shoulders Will call if no improvemen t Cobalamin deficiency 190 264315 E53.8 Need to recheck next visit [id number] Austin Luisa Santiago [facility] [address] [facility] [address],[place] [address] 07/23/2019 09:42:16 07/23/2019 09:47:30 Cobalamin deficiency 855189271 E53.8 Need to recheck next visit [id number] Austin Luisa Santiago [facility] [address] [facility] [address],[place] [address] 08/22/2019 13:58:33 08/22/2019 14:33:53 Cobalamin deficiency 802336095 E53.8 Need to recheck next visit [id number] Austin HellerMisael Santiago [facility] [address] [facility] [address],[place] [address] 09/22/2019 09:29:37 09/22/2019 09:44:58 Cobalamin deficiency 284772726 E53.8 Need to recheck next visit [id number] Austin HellerMisael Santiago [facility] [address] [facility] [address],[place] [address] 10/27/2019 09:57:17 10/27/2019 11:08:55 Cobalamin deficiency [id number] E53.8 Need to recheck next visit [id number] Austin Luisa Santiago [facility] Internal Medicine [address] [facility],[place] [address] 11/24/2019 09:27:22 11/24/2019 10:05:26 Cobalamin deficiency 549642380 E53.8 Need to recheck next visit [id number] Austin Luisa Santiago [facility] Internal Medicine [address] [facility] [address],[place] [address] 12/17/2019 09:14:15 12/17/2019 11:44:56 Asthma 640387188 J45.909 Doing very well Discussed importance of influenza vaccine Essential hypertension 50045985 I10 Atenolol stopped by Cards and on losartan for his bp BP very well controlled Coronary arteriosclerosis 45031588 I25.10 doing ok overall no cp no sob Eczema 78729390 L30.9 will try halobeta [id number] Austin Santiago [facility] Internal Medicine [address] [facility] [address],[place] [address] 12/23/2019 09:46:26 12/23/2019 10:08:48 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 L side, dilated blood vessel Will watch for resolution Asthma 261894913 J45.90 9 Doing very well [id number] Austin Santiago [facility] Internal Medicine [address] [facility] [address],[place] [address] 12/24/2019 09:25:18 12/24/2019 09:39:43 Cobalamin deficiency 190017420 E53.8 Need to recheck next visit [id number] Austin Santiago [facility] Internal Medicine [address] [facility] [address],[place] [address] 01/26/2020 09:22:34 01/26/2020 10:10:57 Cobalamin deficiency 934443574 E53.8 Need to recheck next visit [id number] Austin Santiago [facility] Internal Medicine [address] [facility] [address],[place] [address] 02/25/2020 09:27:19 02/25/2020 11:31:37 Cobalamin deficiency 451835259 E53.8 Need to recheck next visit [id number] Austin Santiago [facility] Internal Medicine [address] [facility] [address],[place] [address] 03/26/2020 09:25:11 03/26/2020 10:34:11 Cobalamin deficiency 802089616 E53.8 Need to recheck next visit [id number] Austin HellerMisael Santiago [facility] Internal Medicine [address] [facility] [address],[place] [address] 03/31/2020 11:01:16 03/31/2020 11:38:56 Asthma 291879149 J45.909 stable Essential hypertension 69522264 I10 BP excellent today Biceps tendinitis 565111 007 M75.22 will try Aleve and see if improvemen [place] [id number] Austin Santiago [facility] Internal Medicine [address] [facility],[place] [address] 04/26/2020 09:27:22 04/26/2020 09:44:39 Cobalamin deficiency 532260190 E53.8 Need to recheck next visit [id number] Austin Santiago [facility] Internal [facility] [address] [facility],[place] [address] 05/25/2020 09:29:37 05/25/2020 10:17:23 Asthma 870172456 J45.909 stable Solitary n odule of lung 846217802 R91.[address] recommende d by ER Acid reflux 807394092 K2 1.9 will fu with GI consult Impaired f asting glycemia 598051300 R73.01 will check A1c per what patient said [id number] Austin Santiago [facility] Internal Medicine [address] [facility],[place] [address] 05/26/2020 09:27:42 05/26/2020 09:33:44 Cobalamin deficiency 442609927 E53.8 Need to recheck next visit [id number] Austin Santiago [facility] Internal Medicine [address] [facility],[place] [address] 06/28/2020 09:24:50 06/28/2020 10:27:28 Cobalamin deficiency 253757837 E53.8 Need to recheck next visit [id number] Austin Santiago [facility] Internal Medicine [address] [facility] [address],[place] [address] 06/30/2020 09:20:50 06/30/2020 11:06:01 Essential hypertension 50448031 I10 Atenolol stopped by Cards and on losartan for his bp and his BP very well controlled Diverticul itis of sigmoid colon 463491418 K57.32 has been quiet has an appt with GI later in month Coronary arteriosclerosis 42819315 I25.10 doing ok overall no cp no sob has remained asymptomat ic no change in meds per cardiology [id number] Austin Veramarianna [facility] Internal Medicine [address] [facility] [address],[place] [address] 07/28/2020 09:29:03 07/28/2020 10:27:37 Cobalamin deficiency 645402783 E53.8 Need to recheck next visit [id number] Austin Veramarianna [facility] Internal Medicine [address] [facility] [address],[place] [address] 08/27/2020 09:25:16 08/27/2020 10:25:58 Cobalamin deficiency 295067272 E53.8 Need to recheck next visit [id number] Austin Veramarianna [facility] Internal Medicine [address] [facility] [address],[place] [address] 09/27/2020 09:31:52 09/27/2020 09:44:43 Cobalamin deficiency 790788026 E53.8 Need to recheck next visit [id number] Austin HellerMisael Chuymarianna [facility] Internal Medicine [address] [facility] [address],[place] [address] 10/29/2020 09:29:25 10/29/2020 13:38:03 Cobalamin deficiency 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 E53.8 Need to recheck next visit [id number] Austin Veramarianna [facility] Internal Medicine [address] [facility] [address],[place] [address] 11/26/2020 09:29:37 11/26/2020 10:46:45 Cobalamin deficiency 403281854 E53.8 Need to recheck next visit [id number] Austin Luisa Santiago [facility] Internal Medicine [address] [facility] [address],[place] [address] 12/08/2020 09:26:04 12/08/2020 10:42:25 Asthma 988421923 Jay45Ramón Doing very well despite the pollen he cont to do well Essential hypertension 24419054 I10 on losartan for his bp and his BP very well controlled off the atenolol Coronary arteriosclerosis 26232600 I25.10 doing ok overall no cp no sob has remained asymptomat ic no change in meds per cardiology Tendinitis of left shoulder 1147880825 021721 M75.92 given ongoing problem with the shoulder we will order him a consult [id number] Austin Luisa Santiago [facility] Internal Medicine [address] [facility] [address],[place] [address] 12/29/2020 09:29:49 12/29/2020 09:45:52 Cobalamin deficiency 690063917 E53.8 Need to recheck next visit [id number] Austin Santiago [facility] Internal Medicine [address] [facility],[place] [address] 01/12/2021 14:43:16 01/12/2021 15:23:22 Contact dermatitis 87080471 L23.7 [id number] Austin HellerMisael Santiago [facility] Internal Medicine [address] [facility] [address],[place] [address] 01/31/2021 09:29:14 01/31/2021 09:39:53 Cobalamin deficiency 692749633 E53.8 Need to recheck next visit [id number] Austin Luisa Santiago [facility] Internal Medicine [address] [facility] [address],[place] [address] 03/04/2021 09:28:05 03/04/2021 11:29:51 Cobalamin deficiency 928059560 E53.8 Need to recheck next visit [id number] Austin Santiago [facility] Internal Medicine [address] [facility] [address],[place] [address] 04/11/2021 09:30:11 04/11/2021 11:12:37 Cobalamin deficiency 240501187 E53.8 Need to recheck next visit [id number] Austin Santiago DO [facility] Internal Medicine [address] [facility] [address],[place] [address] 05/09/2021 09:45:01 05/09/2021 10:05:57 Cobalamin deficiency 416775134 E53.8 Need to recheck next visit [id number] Austin Santiago DO [facility] Internal Medicine [address] [facility] [address],[place] [address] 06/08/2021 09:31:53 06/08/2021 15:35:16 Coronary arteriosclerosis 68249895 I25.10 doing ok overall no cp no sob has remained asymptomat ic no change in meds per cardiology Essential hypertension 69335338 I10 on losartan for his bp and his BP very well controlled off the atenolol Asthma 686901211 J45.90 9 Doing very well despite the pollen he cont to do well [id number] Austin Santiago DO [facility] Internal Medicine [address] [facility] [address],[place] [address] 08/08/2021 09:20:22 08/08/2021 09:31:40 Cobalamin deficiency 675330519 E53.8 Need to recheck next visit [id number] Austin Santiago DO [facility] Internal Medicine [address] [facility] [address],[place] [address] 09/07/2021 09:23:24 09/07/2021 15:55:39 Cobalamin deficiency 510835389 E53.8 Need to recheck next visit [id number] Austin Santiago [facility] Internal Medicine [address] [facility] [address],[place] [address] 10/07/2021 09:26:51 10/11/2021 13:47:57 Cobalamin deficiency 004191312 E53.8 Need to recheck next visit [id number] Austin Santiago DO [facility] Internal Medicine [address] [facility] [address],[place] [address] 11/07/2021 09:34:14 11/07/2021 12:17:16 Cobalamin deficiency 607132110 E53.8 had injection Dyspnea 999176889 R06.02 will fu with STAT imaging Dizziness 779811516 R42 will fu with STAT CT and US carotid [id number] Austin Santiago [facility] Internal Medicine [address] [facility] [address],[place] [address] 12/05/2021 09:33:11 12/05/2021 10:52:47 Cobalamin deficiency 910980531 E53.8 Need to recheck next visit [id number] Austin Santiago [facility] Internal Medicine [address] [facility] [address],[place] [address] 12/07/2021 08:00:29 12/07/2021 15:39:07 Asthma 970342881 J45.909 Doing very well despite the pollen he cont to do well Essential hypertension 61721821 I10 on losartan for his bp and his BP very well controlled off the atenolol [id number] Austin Santiago [facility] Internal Medicine [address] [facility] [address],[place] [address] 01/04/2022 09:27:17 01/04/2022 10:52:45 Cobalamin deficiency 997481841 E53.8 Need to recheck next visit [id number] Austin Santiago [facility] Internal Medicine [address] [facility] [address],[place] [address] 02/03/2022 09:30:16 02/07/2022 11:03:58 Cobalamin deficiency 802643231 E53.8 Need to recheck next visit [id number] DON ROWE [facility] Internal Medicine [address] [facility] [address],[place] [address] 02/21/2022 14:30:54 02/21/2022 15:05:04 Right inguinal hernia 564575805 K40.90 will fu with general surgery for fu and surgical correction [id number] Austin Santiago [facility] Internal Medicine [address] [facility] [address],[place] [address] 03/06/2022 09:27:30 03/06/2022 10:33:59 Cobalamin deficiency 625099092 E53.8 Need to recheck next visit [id number] Austin Santiago [facility] Internal Medicine [address] [facility],[place] [address] 03/15/2022 09:39:59 03/15/2022 14:51:43 Asthma 500464689 J45.909 Doing very well despite the pollen he cont to do well Essential hypertension 58628145 I10 on losartan for his bp and his BP very well controlled off the atenolol Coronary arteriosclerosis 37946598 I25.10 doing ok overall no cp no sob has remained asymptomat ic no change in meds per cardiology Diverticul itis of sigmoid colon 205802894 K57.32 has been quiet has an appt with GI later in month Eczema 93269222 L30.9 will try halobeta [id number] Austin HellerMisael Santiago [facility] Internal Medicine [address] [facility],[place] [address] 04/05/2022 10:30:05 04/05/2022 15:37:58 Cobalamin deficiency 931530360 E53.8 Need to recheck next visit [id number] Austin HellerMisael Chuymarianna [facility] Internal Medicine [address] [facility],[place] [address] 05/08/2022 09:29:30 05/08/2022 13:57:58 Cobalamin deficiency 101233485 E53.8 Need to recheck next visit [id number] Austin HellerMisael Santiago [facility] Internal Medicine [address] [facility],[place] [address] 06/07/2022 09:25:24 06/07/2022 15:22:35 Cobalamin deficiency 939125790 E53.8 Need to recheck next visit [id number] Austin HellerMisael Santiago [facility] Internal Medicine [address] [facility],[place] [address] 07/07/2022 09:24:50 07/07/2022 10:05:18 Cobalamin deficiency 871233137 E53.8 had injection [id number] Austin Santiago [facility] Internal Medicine [address] [facility] [address] [address] 08/07/2022 09:29:58 08/07/2022 10:22:06 Cobalamin deficiency 945038127 E53.8 Need to recheck next visit [id number] Austin Santiago [facility] Internal Medicine [address] [facility] [address],[place] [address] 09/06/2022 09:27:45 09/11/2022 11:07:48 Cobalamin deficiency 755132759 E53.8 Need to recheck next visit [id number] Austin [facility]na[facility] Internal Medicine [address] [facility] [address],[place] [address] 09/26/2022 11:27:08 09/26/2022 12:05:53 Asthma 068526952 J45.909 Doing very well despite the pollen he cont to do well Essential hypertension 66812835 I10 on losartan for his bp and his BP very well controlled off the atenolol Coronary arteriosclerosis 60447300 I25.10 doing ok overall no cp no sob has remained asymptomat ic no change in meds per cardiology his cholestero l shows HDL is 83 and LDL is 52 Nocturia 279165209 R35.1 believe it is secondary to fluid intake at night [id number] Austin Moran Cheyenne [facility] Internal Medicine [address] [facility],[place] [address] 10/06/2022 09:29:42 10/06/2022 14:37:43 Cobalamin deficiency 025242856 E53.8 Need to recheck next visit [id number] Austin Veramarianna [facility] Internal Medicine [address] [facility] [address],[place] [address] 10/10/2022 10:22:53 10/10/2022 16:36:08 Clavicle injury 012818651 S29.9XXA [id number] Austin Veramarianna [facility] Internal Medicine [address] [facility] [address],[place] [address] 11/08/2022 09:22:24 11/08/2022 09:36:49 Cobalamin deficiency 682666487 E53.8 Need to recheck next visit [id number] Austin Santiago [facility] Internal Medicine [address] [facility] [address] [facility] [place] [address] 12/13/2022 11:00:00 12/13/2022 11:12:54 Cobalamin deficiency 726984393 E53.8 Need to recheck next visit [id number] Austin ArronMisael Cheyenne [facility] Internal Medicine [address] [facility] [address],[place] [address] 12/25/2022 09:39:55 12/25/2022 11:20:00 Acute bronchitis 54173686 J20.8 take meds as prescribed call if no improvemen t or symptom change [id number] Austin Santiago [facility] Internal Medicine [address] [facility],[place] [address] 01/08/2023 09:29:59 01/08/2023 10:28:20 Cobalamin deficiency 460145808 E53.8 had injection [id number] Austin ArronMisael Cheyenne [facility] Internal Medicine [address] [facility],[place] [address] 01/09/2023 15:57:33 01/09/2023 16:31:20 Asthma 323551456 J45.20 stable Coronary arteriosclerosis 27268631 I25.10 stable Essential hypertension 88188936 I10 BP excellent today Pre-surger y evaluation 555997411 Z01.818 The patient was seen in the office today for pre-op evaluation . All medical conditions on patient's problem list were addressed and are currently stable, no interventi on needed at this time. Based on history and physical performed, the patient is cleared for surgery. [id number] Austin Luisa Santiago [facility] Internal Medicine [address] [facility] [address],[place] [address] 02/09/2023 09:14:23 02/09/2023 11:09:44 Asthma 191861414 J45.20 Doing very well despite the pollen he cont to do well Essential hypertension 63548841 I10 on losartan for his bp and his BP very well controlled off the atenolol Coronary arteriosclerosis 15096476 I25.10 doing ok overall no cp no sob has remained asymptomat ic no change in meds per cardiology his cholestero l shows HDL is 83 and LDL is 52 Cobalamin deficiency 190 509846 E53.8 Need to recheck next visit [id number] Austin Veramarianna [facility] Internal Medicine [address] [facility] [address],[place] [address] 02/07/2023 09:27:20 02/07/2023 10:38:30 Cobalamin deficiency 773552991 E53.8 Need to recheck next visit [id number] Austin Veramarianna [facility] Internal Medicine [address] [facility] [address],[place] [address] 03/09/2023 09:39:16 03/09/2023 11:12:38 Asthma 684565844 J45.20 [id number] Austin Vearmarianna [facility] Internal Medicine [address] [facility] [address],[place] [address] 04/11/2023 09:25:29 04/11/2023 10:04:06 Cobalamin deficiency 124239937 E53.8 Need to recheck next visit [id number] Austin HellerMisael Chuymarianna [facility] Internal Medicine [address] [facility] [address],[place] [address] 05/11/2023 09:26:45 05/11/2023 14:19:05 Cobalamin deficiency 480113965 E53.8 Need to recheck next visit [id number] Austin HellerMisael Chuymarianna [facility] Internal Medicine [address] [facility] [address],[place] [address] 06/08/2023 09:25:35 06/08/2023 10:23:15 Cobalamin deficiency 886800005 E53.8 Need to recheck next visit [id number] Austin HellerMisael Santiago [facility] Internal Medicine [address] [facility] [address],[place] [address] 07/06/2023 09:36:48 07/06/2023 11:24:25 Cobalamin deficiency 048378912 E53.8 had injection [id number] Austin Santiago [facility] Internal Medicine [address] [facility], [facility] [facility] [place] [address] 08/06/2023 09:46:15 08/06/2023 09:58:39 [id number] Austin Santiago [facility] Internal Medicine [address] [facility], [address] [facility] [address] 08/29/2023 08:00:50 08/29/2023 13:44:20 Asthma 045853881 J45.20 Cobalamin deficiency 190 848824 E53.8 Need to recheck next visit Essential hypertension 93929454 I10 on losartan for his bp and his BP very well controlled off the atenolol Hereditary essential tremor 629151921 G25.0 Unintentio nal weight loss 936887143 R63.4 10-15 lbs chk lab Eczema 37435150 L30.9 will try halobeta [id number] Austin Santiago [facility] Internal Medicine [address] [facility] [address] [place], [address] [facility] [place] [address] 08/31/2023 09:19:59 08/31/2023 09:47:42 Cobalamin deficiency 096993624 E53.8 had injection [id number] Austin Santiago [facility] Internal Medicine [address] [facility], it[address] [facility] [address] 10/01/2023 09:20:16 10/02/2023 08:31:49 Cobalamin deficiency 923376052 E53.8 Need to recheck next visit [id number] Austin Santiago [facility] Internal Medicine [address] [facility] [place] [address] 2023 11:42:51 2023 13:31:29 Asthma 132161189 J45.20 quiet no issues Eczema 97262575 L30.9 stable Essential hypertension 49963969 I10 on losartan for his bp and his BP very well controlled off the atenolol Cobalamin deficiency 190 412728 E53.8 Need to recheck next visit Hereditary essential tremor 798571914 G25.0 no issue Pain of le ft acromioclavicular joint 222320021 M25.512 we will treat with diclofenac [id number] Austin Santiago [facility] Internal Medicine [address] [facility],[place] [address] 10/31/2023 09:27:50 10/31/2023 13:43:39 Cobalamin deficiency 696344916 E53.8 Need to recheck next visit [id number] Austin Santiago [facility] Internal Medicine [address] [facility],[place] [address] 12/03/2023 09:25:06 12/04/2023 08:33:07 Cobalamin deficiency 995988936 E53.8 Need to recheck next visit [id number] Austin Santiago [facility] Internal Medicine [address] [facility] [address] 12/18/2023 11:28:08 12/18/2023 12:11:31 Depression screening 605994300 Z13.31 negative Lumbago with sciatica 20 6595167 M54.41 will start on conservati ve therapy Loss of appetite 4550939 6 R63.0 agreed to additional work up since he is still losing weight without ephwac48 pounds down without trying Unexplaine d weight loss 468642525 R63.4 fu after lab work Cobalamin deficiency 190 099200 E53.8 had injection [id number] Austin Santiago [facility] Internal Medicine [address] [facility],[place] [address] 01/08/2024 10:33:53 01/08/2024 16:02:13 Cobalamin deficiency 397628652 E53.8 Need to recheck next visit [id number] Austin Santiago [facility] Internal Medicine [address] [facility],[place] [address] 01/28/2024 09:24:19 01/28/2024 09:48:30 Cobalamin deficiency 117817485 E53.8 Need to recheck next visit [id number] Austin Santiago [facility] Internal Medicine [address] [facility],[place] [address] 02/27/2024 09:36:30 02/27/2024 09:42:21 Cobalamin deficiency 372567576 E53.8 Need to recheck next visit [id number] Austin Santiago [facility] Internal Medicine [address] [facility] [address],[place] [address] 03/28/2024 09:24:49 03/28/2024 09:37:59 Cobalamin deficiency 026462497 E53.8 Need to recheck next visit [id number] Austin Luisa Santiago [facility] Internal Medicine [address] [facility] [address],[place] [address] 04/15/2024 14:14:07 04/15/2024 14:46:52 Carpal tunnel syndrome of left wrist 6976508327 02232 G56.02 will set up with ortho if he needed itrecommen ded night brace and aleve for the next week Lesion of oral mucosa 10 23439329 351613 K13.70 will set up with specialist [id number] Austin Santiago [facility] Internal Medicine [address] [facility] [address] [place] [address] 05/02/2024 10:06:55 05/02/2024 13:32:08 [id number] Austin Santiago [facility] Internal Medicine [address] [facility] [address],[place] [address] 05/28/2024 09:27:35 05/28/2024 09:54:46 Cobalamin deficiency 142533312 E53.8 Need to recheck next visit [id number] Austin Santiago [facility] Internal Medicine [address] [facility] [address],[place] [address] 07/02/2024 09:32:45 07/02/2024 10:04:15 Cobalamin deficiency 952057754 E53.8 Need to recheck next visit [id number] Austin Santiago [facility] Internal Medicine [address] [facility] [address],[place] [address] 07/30/2024 09:24:50 07/30/2024 09:51:58 Cobalamin deficiency 801578866 E53.8 Need to recheck next visit [id number] Austin Santiago [facility] Internal Medicine [address] [place] [address] 08/27/2024 09:26:25 08/27/2024 14:13:46 Cobalamin deficiency [id number] E53.8 Need to recheck next visit [id number] Austin Veramarianna [facility] Internal [facility] [address] [facility],[place] [address] 09/01/2024 14:42:26 09/01/2024 15:57:07 Asthma [id number] J45.20 quiet no issues Depression screening 171 [id number] Z13.31 neg Essential hypertension [id number] I10 on losartan for his bp and his BP very well controlled off the atenolol Dizziness [id number] R42 poss due to meds will have him hold the propranolo l 2nd dose Essential tremor 5916511 09 G25.0 using the propranolo l bidwill have him stop the second dose for now to see if affecting ffatigue or his breathing Fatigue 95574235 R53.83 will need some lab done cbc b12 cmp etc Hereditary essential tremor 870935356 G25.0 no issue Dyspnea on exertion 6084 5006 R06.09 states using his inhaler more gets exert dyspnea since the past 2-3 monhs as well [id number] Austin Moran [place] [facility] Internal [address],[place] [address] 10/01/2024 13:24:02 10/01/2024 14:41:46 Cobalamin deficiency [id number] E53.8 Need to recheck next visit [id number] Austin Veramarianna [facility] Internal [address] [address] 10/03/2024 11:47:59 10/03/2024 16:07:49 Productive cough 09095875 R05.1 has echo scheduledw ill have him also do a CXR Exacerbati on of intermittent asthma [id number] J45.21 start on zpak and medrol Dyspnea on exertion 6084 5006 R06.09 echo scheduled already for thisdid tell pt if it worsens sig or develops chest pain to go to the ER this week [id number] Austin Santiago [facility] Internal Medicine [address] [facility],[place] [address] 11/04/2024 15:44:28 11/04/2024 16:25:31 Asthma [id number] J45.20 quiet no issues Cobalamin deficiency 190 043125 E53.8 Need to recheck next visit Essential hypertension 70443741 I10 on losartan for his bp and his BP very well controlled off the atenolol Depression screening 171 252329 Z13.31 neg Moderate c hronic obstructive pulmonary disease 976289973 J44.9 [id number] Austin Santiago [facility] Internal Medicine [address] [facility],[place] [address] 10/31/2024 09:54:52 10/31/2024 10:53:40 Cobalamin deficiency [id number] E53.8 Need to recheck next visit Health Concerns Section Related Observation LastModified by Organization Detai ls LastModified Time None Recorded Concern Status LastModified by Organization Details LastModified Time None Recorded Advance Directives Directive None Recorded Payers Encounter Date Sequence Insurance Name Policy Number Policy Ramirez Covered Member ID Ramirez Member ID Guarantor Name 09/01/2024 1 [facility] [id number] 4 Erick P Growhoski [id number] Erick Schultzhogiai 10/01/[address] [place] [address] [id number] Erick Ajay Growhoski [id number] Erick Growhoski 10/03/[address] [place] [address] [id number] Erick P Growhoski [id number] Erick Growhoski 10/31/[address] [place] [address] [id number] 4 Erick P Growhoski [id number] Erick Growhoski 11/04/[address] [place] [id number] Erick P Growhoski [id number] Erick Growhoski Notes Date Note Type Note Provider Name and Address Organization Details Recorded Time text/htm l Care Management - HypertensionReported bypatient.Self Care:not under emotional stress Severity:symptoms are improving; does not interfere with daily activities Associated Symptoms:no dizziness; no lightheadedness; no chest pain; no shortness of breath; no palpitations; no edema; no calf muscle cramps; no blurred vision; no confusion; no headaches; no fatigue relates that the past 2-3 months he has been very tired and fatiguerelates if he gets up quick gets dizzyhad losart cut down to 12 mg but still tiredhaving exertional dyspneacardiol told him was not his heart no wgt loss appetite is goodsleep is fairbowels are not regular as of lateno swelling in ankles . Austin Santiago DO [address] [place], [address], [facility] Internal Medicine 09/01/2024 15:48:45 5 text/htm l c/o productive cough the patient has been having increased productive coughingnoticed it has been going on for a few weekshas been having a lot of nasal congestion, rhinorrhea, sinus pressure and pain the patient feels like he needs to force deep breaths and that his lungs feel tight the patient reports dyspnea with exertion, has US echo already scheduled for next week for his cardiac work updenies vision change, headache, blurred vision, GI symptomsdenies sig chest pain patient is having left wrist pain, but this was before his symptoms, he has carpal tunnel he's getting surgery for, only bothers him a night laying on his armotherwise not related per patient to his dyspnea or other symptoms does report fatigue told pt if symptoms worsen sig to go to the ER this weekend want a CXR, pt agreeswill start on medication for asthma exacerbation DON ROWE [address] [facility], [place], [address], [facility] Internal Medicine 10/03/2024 12:08:29 5 text/htm l Care Management - AsthmaReported [...] no confusion; no headaches; no fatigue Austin Santiago, DO [address] [place], [address], [facility] 11/04/2024 16:17:15
[2024-11-04 17:51] LABS: MANUAL DIFF FLAG NO
[2024-11-04 18:11] LABS: Basophils Percent Auto 0.6 % (0-2); Eosinophils Absolute Auto 0.1 X10*3/uL (0.0-0.4); Eosinophils Percent Auto 2.5 % (0-4); Hematocrit 40.4 % (42.0-52.0); Hemoglobin 13.3 g/dl (14.0-18.0); Imm Gran Abs Auto 0.01 X10*3/uL (0.00-0.03); Imm Gran Pct Auto 0.2 % (0.0-0.4); Lymphocytes Absolute Auto 1.4 X10*3/uL (1.2-4.9); Lymphocytes Percent Auto 29.6 % (20-40); Mean Corpuscular HGB Conc 32.9 g/dl (31.0-36.0); Mean Corpuscular Hemoglobin 30.4 pg (27.0-33.0); Mean Corpuscular Volume 92.4 fL (80.0-98.0); Mean Platelet Volume 11.2 fL (9.4-12.4); Monocytes Absolute Auto 0.7 X10*3/uL (0.1-1.2); Monocytes Percent Auto 13.6 % (2-11); Neutrophils Absolute Auto 2.6 x10*3/uL (2.0-8.3); Neutrophils Percent Auto 53.5 % (45-73); Platelet Count 164 X10*3/uL (160-400); Red Blood Count 4.37 X10*6/uL (4.60-5.80); Red Cell Distribution Width 13.9 % (11.0-16.0); White Blood Count 4.9 X10*3/uL (4.8-10.8)
[2024-11-04 18:41] LABS: Alanine Aminotransferase 44 U/L (0-40); Albumin Level 3.9 g/dL (3.5-5.0); Alkaline Phosphatase 114 U/L (39-117); Anion Gap 12 (12-20); Aspartate Amino Transferase 44 U/L (5-37); Bilirubin Total 0.6 mg/dL (0.0-1.0); Blood Urea Nitrogen 20 mg/dL (9-16); Calcium 9.4 mg/dL (8.4-10.2); Carbon Dioxide 26 mmol/L (22-29); Chloride 107 mmol/L (96-108); Estimated Glomerular Filt Rate 47; Glucose Random 122 mg/dL (60-115); Potassium 3.8 mmol/L (3.3-5.1); Sodium 141 mmol/L (135-145); Total Protein 6.4 g/dL (6.5-8.0)
== END 2024-11-04 16:19 | disposition home or self-care (01) ==
LOC: HO.MANLDS 16:18
PROVIDERS: Visit Provider Internal Medicine
DX: I10 Essential (primary) hypertension (principal)
CPT/HCPCS: 36415; 80053; 85025

== ENCOUNTER 2025-03-16 09:50 | Outpatient (REF) | payer MEDICARE, SELFPAY ==
[2025-03-16 13:06] LABS: MANUAL DIFF FLAG NO
[2025-03-16 13:18] LABS: Hematocrit 44.4 % (42.0-52.0); Hemoglobin 14.5 g/dl (14.0-18.0); Imm Gran Abs Auto 0.02 X10*3/uL (0.00-0.03); Imm Gran Pct Auto 0.4 % (0.0-0.4); Lymphocytes Absolute Auto 0.6 X10*3/uL (1.2-4.9); Mean Corpuscular HGB Conc 32.7 g/dl (31.0-36.0); Mean Corpuscular Hemoglobin 29.7 pg (27.0-33.0); Mean Corpuscular Volume 91.0 fL (80.0-98.0); NRBC Abs Auto 0.000 X10*3/uL (0.0-0.012); NRBC Pct Auto 0.0 /100WBC (0.0-0.2); Platelet Count 126 X10*3/uL (160-400); Red Blood Count 4.88 X10*6/uL (4.60-5.80); White Blood Count 5.4 X10*3/uL (4.8-10.8)
[2025-03-16 13:51] LABS: Alanine Aminotransferase 44 U/L (0-40); Albumin Level 4.0 g/dL (3.5-5.0); Alkaline Phosphatase 112 U/L (39-117); Anion Gap 10 (12-20); Aspartate Amino Transferase 43 U/L (5-37); Blood Urea Nitrogen 11 mg/dL (9-16); Calcium 9.4 mg/dL (8.4-10.2); Carbon Dioxide 27 mmol/L (22-29); Chloride 107 mmol/L (96-108); Estimated Glomerular Filt Rate 42; Potassium 4.2 mmol/L (3.3-5.1); Sodium 140 mmol/L (135-145); Total Protein 6.6 g/dL (6.5-8.0)
[2025-03-16 14:07] LABS: Thyroid Stimulating Hormone 0.39 uIU/mL (0.32-4.0)
[2025-03-16 14:16] LABS: Prostate Specific Antigen 3.03 ng/mL (<0.05-4.0)
== END 2025-03-16 09:51 | disposition home or self-care (01) ==
LOC: HO.MANLDS 09:50
PROVIDERS: Visit Provider Internal Medicine
DX: Z12.5 Encounter for screening for malignant neoplasm of prostate (principal); R63.4 Abnormal weight loss
CPT/HCPCS: 36415; 80053; 84153; 84443; 85025

== ENCOUNTER 2025-04-15 16:30 | Outpatient (REF) | payer MEDICARE, SELFPAY ==
--- OUTSIDE RECORDS SUMMARY | 2022-05-26 16:35 | XMS_ITS | Encounter Summary ---
Author Organization [facility] Address [address] [place] [address] Phone Care Team Providers Care Lease Administration Supervisor Name Role Phone Austin Quinn Primary Care Provider [phone] Encounter Details Date Type Department Care Team (Late st Contact Info) Description 05/26/2022 3:35 PM EST Hospital Encounter [facility] [address] [place] [address] Payton Santos, MACHINE TENDER [address] [place] [address] [email or web address] Social History Tobacco Use Types Packs/Day Years Used Date Smoking Tobacco: Former Pipe Q uit: 1979 Cigars Quit: 1979 Smokeless Tobacco: Former Comments:quit 20 yrs ago Alcohol Use Standard Drinks/Week Comments Yes 7 (1 standard drink = 0.6 oz pur e alcohol) Education Answer Date Recorded Are you interested in more education? Not on tessa e 10/20/2022 Are you concerned about learning? Not on file 10/20/2022 No 10/20/2022 No 10/20/2022 Digital Access Answer Date Recorded No 11/20/2022 No 11/20/2022 Reliable internet access at home? Not on file 11/20/2022 Device with a working camera? Not on file Intimate Partner Violence Answer Date R ecorded Are you denied basic needs s uch as food, clothing, or medical care? No 04/30/2024 In the past 12 months have y ou been in a relationship with a person who hurts, threatens, or tries to control you? No 04/30/2024 Are you denied basic needs s uch as food, clothing, or medical care? No 04/30/2024 In the past 12 months have y ou been in a relationship with a person who hurts, threatens, or tries to control you? No 04/30/2024 Sex and Gender Information Value Date Recorded Sex Assigned at Male 09/12/2017 3:40 PM EDT Legal Sex Male 10:07 PM EDT Gender Identity Male 09/12/2017 3:40 PM EDT Sexual Orientation Straight 09/12/2017 3: 40 PM EDT documented as of this encounter Plan of Treatment Upcoming Encounters Date Type Department Care Team (Late st Contact Info) Description 08/10/2025 9:00 AM EST Office Visit [facility] [address] [place] [address] 3rd Floor, [address] [place] [address] Amadeo Ewing MD [address] [place] [address] [email or web address] documented as of this encounter Procedures Procedure Name Priority Date/Time Associated Diagnosis Comments XR CHEST PA AND LATERAL 2 VIEWS Urgent/patient waiting 05/26/2022 3:47 PM EST Acute cough documented in this encounter Results * XR CHEST PA AND LATERAL 2 VIEWS (05/26/2022 3:47 PM EST) Anatomical Region Laterality Modality Chest Computed Radiogr aphy 05/27/2022 8:42 AM EST Impressions 05/27/2022 8:45 AM EST No acute abnormality. Narrative 05/27/2022 8:45 AM EST XR CHEST PA AND LATERAL 2 VIEWS COMPARISON: XR CHEST PA AND LATERAL 2 VIEWS FINDINGS: Devices/Tubes/Lines: None. Lungs: The lungs are clear. No focal consolidation or pulmonary edema. Pleura: No pleural effusion or pneumothorax. A few bilateral calcified pleural and right diaphragmatic plaques. Nodular opacity projecting just lateral to the right hilum corresponds to an anterior calcified pleural plaque on CT. Heart/Mediastinum: Normal heart and mediastinum. Bones/Soft Tissues: No significant skeletal abnormality. Multiple remote left rib fractures. Remote left clavicular fracture. Procedure Note Yann Maria MD, MPH - 05/27/2022 XR CHEST PA AND LATERAL 2 VIEWS COMPARISON: XR CHEST PA AND LATERAL 2 VIEWS FINDINGS: Devices/Tubes/Lines: None. Lungs: The lungs are clear. No focal consolidation or pulmonary edema. Pleura: No pleural effusion or pneumothorax. A few bilateral calcifiedpleural and right diaphragmatic plaques. Nodular opacity projecting justlateral to the right hilum corresponds to an anterior calcified pleuralplaque on CT. Heart/Mediastinum: Normal heart and mediastinum. Bones/Soft Tissues: No significant skeletal abnormality. Multiple remoteleft rib fractures. Remote left clavicular fracture. IMPRESSION: No acute abnormality. Payton Santos MACHINE TENDER IMG XR CHEST Final Resul t documented in this encounter Visit Diagnoses Not on filedocumented in this encounter Additional Health Concerns Infection Onset Date Last Indicated Resolved Time CoV-Risk 05/26/2022 05/26/2022 06/06/2022 3:51 AM EST documented as of this encounter Care Teams Lease Administration Supervisor Relationship Specialty Start Date End Date Austin Quinn DO [email or web address] PCP - General 04/12/17 documented as of this encounter Additional Source Comments The information contained in this document represents components of the legal health record. It is not the complete legal health record.[facility]
--- OUTSIDE RECORDS SUMMARY | 2025-04-15 22:07 | XMS_ITS | Encounter Summary ---
Author Organization [facility] Address [address] [place] [address] [place] [address] Phone Care Team Providers Care Raw Juice Weigher Name Role Phone Austin Quinn DO Primary Care Provider [phone] Encounter Details Date Type Department Care Team (Late st Contact Info) Description 05/19/2019 Prep for Surgery [facility] Medicine [address] [place] [address] Viridiana Julien MD [address] [place] [address] Orthopedics & Sports Medicine, [facility] [place] [address] [email or web address] Social History Tobacco Use Types Packs/Day Years Used Date Smoking Tobacco: Former Smokeless Tobacco: Former Alcohol Use Standard Drinks/Week Comments Yes 0 (1 standard drink = 0.6 oz pur e alcohol) Sex and Gender Information Value Date Recorded Sex Assigned at Male 09/12/2017 3:40 PM EDT Legal Sex Male 10:07 PM EDT Gender Identity Male 09/12/2017 3:40 PM EDT Sexual Orientation Straight 09/12/2017 3: 40 PM EDT documented as of this encounter Plan of Treatment Upcoming Encounters Date Type Department Care Team (Late st Contact Info) Description 08/10/2025 9:00 AM EST Office Visit [facility] [address] [place] [address] 3rd Floor, [address] [place] [address] Amadeo Ewing MD [address] [facility], [address] [place] [address] [email or web address] documented as of this encounter Visit Diagnoses Not on filedocumented in this encounter Additional Health Concerns Infection Onset Date Last Indicated Resolved Time CoV-Risk 05/26/2022 05/26/2022 06/06/2022 3:51 AM EST documented as of this encounter Care Teams Raw Juice Weigher Relationship Specialty Start Date End Date Austin Quinn DO [email or web address] PCP - General 04/12/17 documented as of this encounter Additional Source Comments The information contained in this document represents components of the legal health record. It is not the complete legal health record.[facility]
--- OUTSIDE RECORDS SUMMARY | 2025-04-15 22:07 | XMS_ITS | Encounter Summary ---
Author Organization [facility] Address [address] [place] [address] Phone Care Team Providers Care Gas Engine Performance Engineer Name Role Phone Austin Quinn Primary Care Provider [phone] Encounter Details Date Type Department Care Team (Miguelina ackerman Contact Info) Description 01/07/2024 Procedure Pass [facility], Ct Scan - [address] [address] Social History Tobacco Use Types Packs/Day Years [...] with a working camera? Not on file Sex and Gender Information Value Date Recorded Sex Assigned at Male 09/12/2017 3:40 PM EDT Legal Sex Male 10:07 PM EDT Gender Identity Male 09/12/2017 3:40 PM EDT Sexual Orientation Straight 09/12/2017 3: 40 PM EDT documented as of this encounter Plan of Treatment Upcoming Encounters Date Type Department Care Team (Miguelina ackerman Contact Info) Description 08/10/2025 9:00 AM EST Office Visit [facility] [address] [facility] 3rd Floor, [address] [place] [address] Amadeo Ewing MD 22 [facility], [address] [place] [address] documented as of this encounter Visit Diagnoses Not on filedocumented in this encounter Care Teams Gas Engine Performance Engineer Relationship Specialty Start Date End Date Austin Quinn DO PCP - General 04/12/17 documented as of this encounter Additional Source Comments The information contained in this document represents components of the legal health record. It is not the complete legal health record.[facility]
--- OUTSIDE RECORDS SUMMARY | 2025-04-15 22:07 | XMS_ITS | Encounter Summary ---
Author Organization [facility] Address [address] [place] [address] Phone Care Team Providers Care Refinery Operator Helper Crude Unit Name Role Phone Austin Quinn Primary Care Provider [phone] Encounter Details Date Type Department Care Team (Late st Contact Info) Description 07/02/2019 Procedure Pass OR Admitting Dept - Virtual Department [address] [place] [address] Social History Tobacco Use Types Packs/Day Years Used Date Smoking Tobacco: Former Cigars Smokeless Tobacco: Former Alcohol Use Standard Drinks/Week Comments Yes 0 (1 standard drink = 0.6 oz pur e alcohol) 2-3 times a week Sex and Gender Information Value Date Recorded Sex Assigned at Male 09/12/2017 3:40 PM EDT Legal Sex Male 10:07 PM EDT Gender Identity Male 09/12/2017 3:40 PM EDT Sexual Orientation Straight 09/12/2017 3: 40 PM EDT documented as of this encounter Plan of Treatment Upcoming Encounters Date Type Department Care Team (Late st Contact Info) Description 08/10/2025 9:00 AM EST Office Visit [facility] [address] [place] [address] [address]rd Floor, [address] [place] [address] Amadeo Ewing MD [address] [address] [email or web address] documented as of this encounter Visit Diagnoses Not on filedocumented in this encounter Additional Health Concerns Infection Onset Date Last Indicated Resolved Time CoV-Risk 05/26/2022 05/26/2022 06/06/2022 3:51 AM EST documented as of this encounter Care Teams Refinery Operator Helper Crude Unit Relationship Specialty Start Date End Date Chuymarianna Austin DO [email or web address] [email or web address] PCP - General 04/12/17 documented as of this encounter Additional Source Comments The information contained in this document represents components of the legal health record. It is not the complete legal health record.[facility]
--- OUTSIDE RECORDS SUMMARY | 2025-04-15 22:07 | XMS_ITS | Encounter Summary ---
Author Organization [facility] Address [address] [place] [address] Phone Care Team Providers Care Outside Industrial Sales Representative Name Role Phone Austin Quinn DO Primary Care Provider [phone] Encounter Details Date Type Department Care Team (Late st Contact Info) Description 2023 Transcribe Orders Virtual Department [address] [place] [address] Austin Quinn DO [address] [facility] [place] [address] [place] [address] [email or web address] Left shoulder pain, unspecified chronicity (Primary Dx) Social History Tobacco Use Types Packs/Day Years [...] Description 08/10/2025 9:00 AM EST Office Visit [facility] [address] [facility] 3rd Floor, [address] [place] [address] Amadeo Ewing MD 22 [facility], [address] [place] [address] [email or web address] documented as of this encounter Results * XR Acromioclavicular Joints (Bilateral) (2023 2:10 PM EDT) Anatomical Region Laterality Modality Chest, Shoulder Right, Shoulder Left Computed Radiography 2023 11:3 9 PM EDT Impressions 2023 11:40 PM EDT No significant change in the alignment of the acromioclavicular joints with and without weights. 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 Narrative 2023 11:40 PM EDT XR ACROMIOCLAVICULAR JOINTS (BILATERAL) Referring clinician's provided indication for this examination in Epic: Outside Radiology Order; left acromioclavicular joint pain COMPARISON: None FINDINGS: Images of the acromioclavicular joints were obtained with and without weights. There is a chronic, nonunited fracture of the left mid clavicular diaphysis with apex superior angulation. Moderate joint space narrowing with bony proliferative change is at the acromioclavicular joints bilaterally. There is partially visualized cervical spine degenerative change. There is no significant change in the alignment of the AC joints with and without the presence of weights. Procedure Note Antonia Del Angel MD - 2023 XR ACROMIOCLAVICULAR JOINTS (BILATERAL) Referring clinician's provided indication for this examination in Epic:Outside Radiology Order; left acromioclavicular joint pain COMPARISON: None FINDINGS: Images of the acromioclavicular joints were obtained with and withoutweights. There is a chronic, nonunited fracture of the left mid claviculardiaphysis with apex superior angulation. Moderate joint space narrowingwith bony proliferative change is at the acromioclavicular jointsbilaterally. There is partially visualized cervical spine degenerativechange. There is no significant change in the alignment of the AC joints with andwithout the presence of weights. IMPRESSION: No significant change in the alignment of the acromioclavicular jointswith and without weights. 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 Moderate acromioclavicular joint osteoarthritis bilaterally. Austin Quinn DO IMG XR CHEST Final Result documented in this encounter Visit Diagnoses Diagnosis Left shoulder pain, unspecified chronicity- Primary Left shoulder pain, unspecified chronicity documented in this encounter Care Teams Outside Industrial Sales Representative Relationship Specialty Start Date End Date Austin Quinn DO PCP - General 04/12/17 documented as of this encounter Additional Source Comments The information contained in this document represents components of the legal health record. It is not the complete legal health record.[facility]
--- OUTSIDE RECORDS SUMMARY | 2025-04-15 22:07 | XMS_ITS | Encounter Summary ---
Author Organization [facility] Address [address] [facility] [address] [place] [address] Phone Care Team Providers Care Baggage Screener Name Role Phone Austin Quinn Primary Care Provider [phone] Encounter Details Date Type Department Care Team (Latest Contact Info) Description 05/07/2017 Transcribe Orders [facility] [address] [place] [address] Austin Black MD [address] [address] [email or web address] Pure hypercholesterolemia (Primary Dx) Social History Tobacco Use Types Packs/Day Years Used Date Smoking Tobacco: Never Assessed Sex and Gender Information Value Date Recorded Sex Assigned at Male 09/12/2017 3:40 PM EDT Legal Sex Male 10:07 PM EDT Gender Identity Male 09/12/2017 3:40 PM EDT Sexual Orientation Straight 09/12/2017 3: 40 PM EDT documented as of this encounter Plan of Treatment Upcoming Encounters Date Type Department Care Team (Late st Contact Info) Description 08/10/2025 9:00 AM EST Office Visit [facility] [address] [facility] 3rd Floor, [address] [place] [address] Amadeo Ewing MD 22 [facility], [address] [place] [address] documented as of this encounter Results * (ABNORMAL) LFTs (hepatic panel) (05/07/2017 7:42 AM EST) ALKALINE PHOSPHATASE 71 39 - 117 U/L [facility] TOTAL BILIRUBIN 1.0 0 - 1.2 mg/dL [facility] DIRECT BILIRUBIN <0.2 0 - 0.3 mg/dL [facility] Bilirubin (Indirect) NOT CALCULATED 0 - 1.5 mg/dL [facility] AST 26 0 - 37 U/L [facility] ALT 20 0 - 40 U/L [facility] TOTAL PROTEIN 6.8 6.5 - 8.0 g/dL [facility] ALBUMIN 3.8(L) 3.9 - 4.8 g/dL [facility] GLOBULIN 3.0 1 - 4.8 g/dL [facility] A/G Ratio 1.27 1.00 - 4.80 RATIO [facility] Blood 05/07/2017 7:42 AM EST 05/07/2017 8:48 AM EST us Austin Black MD LAB BLOOD ORDERABLES Edited Res ult - Final [address] [address] * (ABNORMAL) Lipid panel (05/07/2017 7:42 AM EST) HDL 78 mg/dL [facility] Comment: Interpretation: Risk Level Males Decreased >45 mg/dL Average 40-45 mg/dL Increased <40 mg/dL CHOLESTEROL 147 0 - 240 mg/dL [facility] TRIGLYCERIDES 67 30 - 160 mg/dL [facility] LDL 56 50 - 129 mg/dL [facility] Comment: LDL levels in terms of risk for coronary heart disease: <100 mg/dL: Optimal 100-129 mg/dL: Near or above optimal 130-159 mg/dL: Borderline high 160-189 mg/dL: High >190 mg/dL: Very High CARDIAC RISK RATIO 1.9(L) 3.4 - 5.0 [facility] Blood 05/07/2017 7:42 AM EST 05/07/2017 8:48 AM EST us Austin Black MD LAB BLOOD ORDERABLES Final Resu lt Performing Organization Address [facility] Co de Phone Number [address] [address] * Basic metabolic panel (05/07/2017 7:42 AM EST) SODIUM 138 133 - 146 mmol/L [facility] CHLORIDE 100 96 - 108 mmol/L [facility] POTASSIUM 4.6 3.3 - 5.1 mmol/L [facility] CO2 28 21 - 35 mmol/L [facility] BUN 16 6 - 19 mg/dL [facility] CREATININE 0.90 0.5 - 1.5 mg/dL [facility] GLUCOSE 88 70 - 99 mg/dL [facility] CALCIUM 9.1 8.4 - 10.3 mg/dL [facility] EGFR >60 mL/min/1.7 3m2 [facility] Comment:Abnormal if <60. If patient is -Slovak, multiply the result by 1.21. ANION GAP 15 10 - 20 mmol/L [facility] Blood 05/07/2017 7:42 AM EST 05/07/2017 8:48 AM EST us Austin Black MD LAB BLOOD ORDERABLES Final Resu lt Performing Organization Address [facility] Co de Phone Number [address] [address] documented in this encounter Visit Diagnoses Diagnosis Pure hypercholesterolemia- Primary documented in this encounter Additional Health Concerns Infection Onset Date Last Indicated Resolved Time CoV-Risk 05/26/2022 05/26/2022 06/06/2022 3:51 AM EST documented as of this encounter Care Teams Baggage Screener Relationship Specialty Start Date End Date Austin Quinn DO PCP - General 04/12/17 documented as of this encounter Additional Source Comments The information contained in this document represents components of the legal health record. It is not the complete legal health record.[facility]
--- OUTSIDE RECORDS SUMMARY | 2025-04-15 22:07 | XMS_ITS | Encounter Summary ---
Author Organization [facility] Address [facility] [employer] [facility] [address] [place] [address] Phone Care Team Providers Care Ethics Officer Name Role Phone Austin Quinn Primary Care Provider Reason for Referral * MRI/CAT Scan - Closed Specialty Diagnoses / Procedures Referred By Contac t Referred To Contact Radiology Diagnoses Unspecified injury of thorax, initial encounter Procedures CT Shoulder (Right) CHG CT SCAN,UPPER EXTREMITY,W/O CONTRAST Karen Tatum PA [address] [facility] [place] [address] [place] [address] Phone: tel: fax: Referral ID Status Reason Start Date Expiration Date Visits Re quested Visits Authorized [id number] Closed 10/23/2022 11/22/2022 1 1 Encounter Details Date Type Department Care Team (Latest Contact Info) Description 10/11/2022 Transcribe Orders Virtual Department [address] [place] [address] Karen Tatum PA [address] [facility] [place] [address] [place] [address] Unspecified injury of thorax, initial encounter (Primary Dx) Social History Tobacco Use Types [...] Description 08/10/2025 9:00 AM EST Office Visit [facility] [address] [facility] 3rd Floor, [address] [place], [place] [phone] Amadeo Ewing MD [address] [facility], [address] [place], [place] [phone] [email or web address] documented as of this encounter Results * CT SHOULDER WITHOUT CONTRAST (RIGHT) (10/26/2022 5:53 PM EDT) Anatomical Region Laterality Modality Shoulder Right Computed Tomogra phy 10/30/2022 6:49 PM EDT Impressions 10/30/2022 6:58 PM EDT No acute fracture or malalignment. Narrative 10/30/2022 6:[address] SHOULDER WITHOUT CONTRAST (RIGHT) History:Outside Radiology Order; Unspecified injury of thorax, initial encounter TECHNIQUE: Multidetector-row CT of the shoulder, without intravenous contrast using dose-modulation techniques. Images were reconstructed in the axial, coronal, and sagittal planes. COMPARISON: Chest radiograph on June 14, 2022. FINDINGS: Bones and Joints: Moderate degree of degenerative changes at the clavicular joint. Minimal degenerative cystic changes of the humeral head. No fracture. Normal alignment. No effusion. Degenerative changes in the included spine. Soft Tissues: No soft tissue masses or hematomas. 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 No pulmonary consolidation. Procedure Note Yesica Donis MD - 10/30/2022 CT SHOULDER WITHOUT CONTRAST (RIGHT) History:Outside Radiology Order; Unspecified injury of thorax, initialencounter TECHNIQUE: Multidetector-row CT of the shoulder, without intravenouscontrast using dose-modulation techniques. Images were reconstructed inthe axial, coronal, and sagittal planes. COMPARISON: Chest radiograph on June 14, 2022. FINDINGS: Bones and Joints: Moderate degree of degenerative changes at theclavicular joint. Minimal degenerative cystic changes of the humeral head.No fracture. Normal alignment. No effusion. Degenerative changes in theincluded spine. Soft Tissues: No soft tissue masses or hematomas. Partially calcifiedpleural plaques suggestive previous asbestos exposure. No pulmonaryconsolidation. IMPRESSION: No acute fracture or malalignment. Karen OCHOA IMG CT EXTREMITY Final Resu lt documented in this encounter Visit Diagnoses Diagnosis Unspecified injury of thorax, initial encounter- Primary Unspecified injury of thorax, initial encounter documented in this encounter Care Teams Ethics Officer Relationship Specialty Start Date End Date Austin Quinn DO [email or web address] PCP - General 04/12/17 documented as of this encounter Additional Source Comments The information contained in this document represents components of the legal health record. It is not the complete legal health record.[facility]
--- OUTSIDE RECORDS SUMMARY | 2025-04-15 22:07 | XMS_ITS | Encounter Summary ---
Author Organization [facility] Address [address] [place] [address] [place] [phone] Phone Care Team Providers Care Investment Executive Name Role Phone Austin Quinn Primary Care Provider [phone] Reason for Referral * MRI/CAT Scan - Closed Specialty Diagnoses / Procedures Referred By Contac t Referred To Contact Radiology Diagnoses Abnormal weight loss Procedures CT Abdomen/Pelvis CHG CT SCAN,ABDOMENT AND PELVIS,W CONTRAST Karen Tatum PA [address] [facility] [place] [address] [place] [address] Phone: tel: fax: Referral ID Status Reason Start Date Expiration Date Visits Re quested Visits Authorized [id number] Closed 01/02/2024 03/01/2024 [id number] 1 * MRI/CAT Scan - Closed Specialty Diagnoses / Procedures Referred By Contac t Referred To Contact Radiology Diagnoses Abnormal weight loss Procedures CT Chest CHG DIAGNOSTIC COMPUTED TOMOGRAPHY THORAX W/CONTRAST Karen Tatum PA [address] [facility] [place] [address] [place] [address] Phone: tel: fax: Referral ID Status Reason Start Date Expiration Date Visits Re quested Visits Authorized [id number] Closed 01/01/2024 03/01/2024 1 1 Encounter Details Date Type Department Care Team (Latest Contact Info) Description 01/07/2024 Transcribe Orders Virtual Department [address] [place] [address] Karen Tatum PA [address] [facility] [place] [address] [place] [address] Abnormal weight loss (Primary Dx) Social History Tobacco Use Types [...] Description 08/10/2025 9:00 AM EST Office Visit [facility] [address] [place] [address] [address]rd Floor, [address] [place] [id number] Amadeo Ewing MD [address] [address] documented as of this encounter Results * CT ABDOMEN/PELVIS WITH CONTRAST (01/31/2024 4:28 PM EDT) Anatomical Region Laterality Modality Abdomen, Pelvis Computed Tomogra phy 02/06/2024 9:23 AM EDT Impressions 02/06/2024 9:45 AM EDT 1. Prominent cecal stool collection which may be associated with polypoid mass. Recommend colonoscopy versus limited CT scanning following thorough colonic cleansing for further evaluation of this finding. No metastatic disease, additional evidence of intra-abdominal or retroperitoneal malignancy, or other significant interval change from 07/03/2018. 2. The results of this examination were discussed with DON Rees, at 0930 hours on 02/06/2024. Narrative 02/06/2024 9:[address] ABDOMEN/PELVIS WITH CONTRAST Referring clinician's provided indication for this examination in Epic: Outside Radiology Order; unexpected/unintentional wt loss, r/o colitis, mass of the colon or pancreas TECHNIQUE: Multidetector-row CT of the abdomen and pelvis was performed after administration of intravenous contrast using tailored dose modulation techniques. Images were reconstructed in the axial, coronal, and sagittal planes. COMPARISON: 07/03/2018 CT FINDINGS: Lower Chest: Please refer to chest scratch that please refer to current chest CT report Liver: No focal parenchymal lesion. Biliary: Bladder contracted. No evidence of biliary obstruction. Spleen: No splenomegaly or focal parenchymal lesion. Chronic splenule. Pancreas: No focal mass, duct dilatation, or peripancreatic inflammatory infiltration. Adrenal Glands: No nodules. Kidneys/Ureters: No parenchymal mass, dominant cyst, hydronephrosis, or perinephric stranding. Bowel: No evidence of small bowel obstruction. Colon is nonopacified and stool filled with what may represent a prominent stool flexion in the region of the ileocecal valve measuring approximately 5.0 x 5.1 cm in transverse dimensions. Although this contains multiple internal gas pockets it could relate obscure a polypoid mass. No annular constricting lesion identified. There are scattered descending and sigmoid diverticula without paracolic inflammatory infiltration. Peritoneum/Retroperitoneum: No free fluid or mass. Lymph Nodes: No pathologically enlarged mesenteric, para-aortic, iliac chain, or inguinal nodes identified. Pelvic Organs/Bladder: No free fluid or mass. Postsurgical changes of right inguinal hernia repair. Mild prostatomegaly impressing upon the bladder floor. Vessels: No evidence of aortoiliac aneurysm. Main trunks of the SMA and celiac axis appear patent. Main portal vein grossly patent. Bones/Soft Tissues: No abdominal wall mass or bowel containing hernia. No acute traumatic or destructive bony abnormality. Chronic lower lumbar spinal stenosis and degenerative facet arthropathy. Procedure Note Brayden Pérez MD - 02/06/2024 CT ABDOMEN/PELVIS WITH CONTRAST Referring clinician's provided indication for this examination in Epic:Outside Radiology Order; unexpected/unintentional wt loss, r/o colitis,mass of the colon or pancreas TECHNIQUE: Multidetector-row CT of the abdomen and pelvis was performedafter administration of intravenous contrast using tailored dosemodulation techniques. Images were reconstructed in the axial, coronal,and sagittal planes. COMPARISON: 07/03/2018 CT FINDINGS: Lower Chest: Please refer to chest scratch that [facility] Liver: No focal parenchymal lesion. Biliary: Bladder contracted. No evidence of biliary obstruction. Spleen: No splenomegaly or focal parenchymal lesion. Chronic splenule. Pancreas: No focal mass, duct dilatation, or peripancreatic inflammatoryinfiltration. Adrenal Glands: No nodules. Kidneys/Ureters: No parenchymal mass, dominant cyst, hydronephrosis, orperinephric stranding. Bowel: No evidence of small bowel obstruction. Colon is nonopacified andstool filled with what may represent a prominent stool flexion in theregion of the ileocecal valve measuring approximately 5.0 x 5.1 cm intransverse dimensions. Although this contains multiple internal gaspockets it could relate obscure a polypoid mass. No annular constrictinglesion identified. There are scattered descending and sigmoid diverticulawithout paracolic inflammatory infiltration. Peritoneum/Retroperitoneum: No free fluid or mass. Lymph Nodes: No pathologically enlarged mesenteric, para-aortic, iliacchain, or inguinal nodes identified. Pelvic Organs/Bladder: No free fluid or mass. Postsurgical changes ofright inguinal hernia repair. Mild prostatomegaly impressing upon thebladder floor. Vessels: No evidence of aortoiliac aneurysm. Main trunks of the SMA andceliac axis appear patent. Main portal vein grossly patent. Bones/Soft Tissues: No abdominal wall mass or bowel containing hernia. Noacute traumatic or destructive bony abnormality. Chronic lower lumbarspinal stenosis and degenerative facet arthropathy. IMPRESSION: 1. Prominent cecal stool collection which may be associated with polypoidmass. Recommend colonoscopy versus limited CT scanning following thoroughcolonic cleansing for further evaluation of this finding. No metastaticdisease, additional evidence of intra-abdominal or retroperitonealmalignancy, or other significant interval change from 07/03/2018. 2. The results of this examination were discussed with DON Rees, at 0930 hours on 02/06/2024. us Karen OCHOA IMG CT ABD/PELVIS Final Res ult * CT CHEST WITH CONTRAST (01/31/2024 4:28 PM EDT) Anatomical Region Laterality Modality Chest Computed Tomogra phy 02/06/2024 9:09 AM EDT Impressions 02/06/2024 9:23 AM EDT 1. Chronic findings as above with current left basilar hypoaeration and atelectatic change but without central obstructing mass or other specific etiology of weight loss identified. Narrative 02/06/2024 9:[address] CHEST WITH CONTRAST Referring clinician's provided indication for this examination in Epic: Outside Radiology Order; unexpected/unintentional wt loss, r/o colitis, mass of the colon or pancreas TECHNIQUE: Multidetector CT of the chest was performed with intravenous contrast using tailored dose modulation techniques. COMPARISON: 11/08/2021 CT PA and 07/31/2023 chest radiographs FINDINGS: Devices/Tubes/Lines: None. Lungs: No focal airspace infiltrate apparent. There is mild left basilar hypoaeration and linear atelectasis versus interval scarring present. Stable bilateral sub-5 mm pulmonary nodules (series 4 images 227, 231, 246) without new or enlarging nodules apparent. Pleura: Scattered chronic calcified pleural plaques appear stable. No pleural effusion or pneumothorax. Mediastinum: No significant pericardial effusion. No aortic aneurysm. Main right and left pulmonary arteries and opacified segmental and subsegmental branches appear patent. No thyroid mass. Chronic coronary artery calcification. Lymph Nodes: No pathologically enlarged mediastinal, hilar, supraclavicular, or axillary nodes demonstrated. Upper Abdomen: Please refer to current abdominal CT report. Chest Wall: No chest wall mass. Bones: No acute traumatic or destructive bony abnormality. 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 Procedure Note Brayden Pérez MD - 02/06/2024 CT CHEST WITH CONTRAST Referring clinician's provided indication for this examination in [facility]:Outside Radiology Order; unexpected/unintentional wt loss, r/o colitis,mass of the colon or pancreas TECHNIQUE: Multidetector CT of the chest was performed with intravenouscontrast using tailored dose modulation techniques. COMPARISON: 11/08/2021 CT PA and 07/31/2023 chest radiographs FINDINGS: Devices/Tubes/Lines: None. Lungs: No focal airspace infiltrate apparent. There is mild left basilarhypoaeration and linear atelectasis versus interval scarring present.Stable bilateral sub-5 mm pulmonary nodules (series 4 images 227, 231,246) without new or enlarging nodules apparent. Pleura: Scattered chronic calcified pleural plaques appear stable. Nopleural effusion or pneumothorax. Mediastinum: No significant pericardial effusion. No aortic aneurysm. Mainright and left pulmonary arteries and opacified segmental and subsegmentalbranches appear patent. No thyroid mass. Chronic coronary arterycalcification. Lymph Nodes: No pathologically enlarged mediastinal, hilar,supraclavicular, or axillary nodes demonstrated. Upper Abdomen: Please refer to current abdominal CT report. Chest Wall: No chest wall mass. Bones: No acute traumatic or destructive bony abnormality. Chronic leftclavicle and multiple rib fracture deformities and thoracic DISH. IMPRESSION: 1. Chronic findings as above with current left basilar hypoaeration andatelectatic change but without central obstructing mass or other specificetiology of weight loss identified. Karen OCHOA IMG CT CHEST Final Resul t documented in this encounter Visit Diagnoses Diagnosis Abnormal weight loss- Primary Loss of weight Abnormal weight loss Loss of weight documented in this encounter Care Teams Investment Executive Relationship Specialty Start Date End Date Austin Quinn DO PCP - General 04/12/17 documented as of this encounter Additional Source Comments The information contained in this document represents components of the legal health record. It is not the complete legal health record.[facility]
--- OUTSIDE RECORDS SUMMARY | 2025-04-15 22:07 | XMS_ITS | Clinical Summary ---
Author Organization Formerly [facility] Address [address] [place] [address] Phone Care Team Providers Care Journeyman Pipe Welder Name Role Phone Austin Quinn Primary Care Provider [phone] Allergies No known active allergies Medications aspirin 81 MG EC tablet Take 81 mg by mouth daily. Active montelukast (SINGULAIR) 10 mg tablet montelukast 10 mg tablet TAKE 1 TABLET NIGHTLY Active Lactobacillus acidophilus (ACIDOPHILUS ORAL) Take 1 Cartridge by mouth daily. Active cyanocobalamin (VITAMIN B-12) 1,000 mcg/mL injectionIndica tions:once a month Indications: once a month 04/11/20 19 Active albuterol 90 mcg/actuation inhaler ProAir HFA 90 mcg/actuation aerosol inhaler inhale 1-2 puffs every 4-6 hours as needed Active rosuvastatin (CRESTOR) 40 MG tabletIndicatio ns:Medication refill Take 1 tablet (40 mg total) by mouth daily. 90 tablet 2 04/01/20 21 Active acetaminophen (TYLENOL) 325 mg tablet Take 2 tablets (650 mg total) by mouth every 6 (six) hours as needed for mild pain or 1-3 (on a general 0-10 scale). 0 03/22/20 22 Active cholecalciferol (VITAMIN D3) 25 MCG (1,000 unit) tablet Take 1,000 Units by mouth daily. Active herbal drugs (FIBER DIET ORAL) Take by mouth daily. Active tamsulosin (FLOMAX) 0.4 mg Cap TAKE 1 CAPSULE(0.4 MG) BY MOUTH DAILY 60 capsule 04/06/20 25 Active tamsulosin (FLOMAX) 0.4 mg Cap TAKE 1 CAPSULE(0.4 MG) BY MOUTH DAILY 60 capsule 01/27/20 25 025 Discontinued Active Problems Problem Noted Date Diagnosed Date Other chest pain 07/20/2022 Assessment & Plan (07/20/2022 1:24 PM EST): Patient reports had 1 episode of chest pain a few weeks ago at night, not with exertion. He had a negative stress test in 2018. He reports he is under increased stress which could have been the cause of it. For now we will continue without another stress test, but if he is getting more symptoms, we will do further work-up. Uncomplicated asthma 05/26/2022 S/P inguinal hernia repair using synthetic patch 04/05/2022 Eczema 03/15/2022 Right inguinal hernia 02/21/2022 Asbestosis 11/08/2021 Cobalamin deficiency 11/07/2021 Dizziness 11/07/2021 Dyspnea 11/07/2021 Allergic rhinitis 09/12/2017 Diverticulitis of sigmoid colon 09/12/2017 Polyp of colon 09/12/2017 Asthma 09/12/2017 Coronary artery disease invo lving shoshone-bannock coronary artery of shoshone[place]bannock heart without angina pectoris 05/09/2017 Overview (07/02/2018): ~2008 PCI Cfx RACHID X 2 Assessment & Plan (07/20/2022 1:24 PM EST): Patient reports he did have 1 episode of chest pain a few weeks ago, but has not had anything since. This was at rest. He has been under increased stress due to his having recent elbow surgery and him having to provide more care. He had a negative stress test in 2018. For now we will continue without the stress test. He will let us know if he has increased symptoms. We will continue him on aspirin and rosuvastatin. I will have him get an updated lipid panel and basic metabolic panel. Assessment & Plan (06/23/2020 9:55 AM EST): Angina free and physically active. Assessment & Plan (05/18/2020 8:46 AM EST): Patient has a history of coronary artery disease with 2 stents placed in 2008. He has been historically doing well since. He did present to the [facility] ED on 05/16/2020 with complaints of right upper chest pain that was ultimately diagnosed as heartburn/GI in nature which resolved with a GI cocktail and an episode of emesis. Patient denies any recurrence of his symptoms or any other associated symptoms since his discharge from the hospital. I discussed with him that if his symptoms recur or are new or changing, that we could potentially update a stress test to ensure his pain is nonischemic in nature, however, I do not think is necessary at this time. Patient remains stable and asymptomatic. We will see him at regularly scheduled visit at the end of May at which time we can transition his care to whomever Dr. Black suggests. Patient should continue on aspirin lifelong and continue to optimize his cardiac risk factors. Assessment & Plan (01/14/2020 8:38 AM EDT): Continues to do very well. More active than in the past. Assessment & Plan (07/15/2019 8:44 AM EST): Remains asymptomatic. He knows he needs to be more active. ECG today is remarkable only for sinus bradycardia at 47 and is otherwise a normal tracing. Assessment & Plan (01/02/2019 8:06 AM EDT): Encouraged to be more active. Overall doing well and had made no further medication changes. Assessment & Plan (07/02/2018 10:55 AM EST): Doing well. No angina. Assessment & Plan (01/01/2018 2:50 PM EDT): He is doing well. He is not describing any symptoms that are concerning for ischemia. I have placed him for being active but I have encouraged him to formally exercise to get his heart rate up 20-30 minutes most days. He knows to call our office if he develops any symptoms. We will continue to optimize his risk factors. I have sent his Crestor, Diovan, and atenolol to be renewed at their new pharmacy. Assessment & Plan (05/09/2017 8:46 AM EST): Continues to do well. I've encouraged him to begin some exercise. Essential hypertension 05/09/2017 Assessment & Plan (07/20/2022 1:22 PM EST): Patient overall feels well. His blood pressure today is 136/68. We will continue him on his current dose of losartan 25 mg daily. Assessment & Plan (06/23/2020 9:55 AM EST): Controlled on present therapy. No changes. Assessment & Plan (05/18/2020 8:46 AM EST): Continue losartan. No medication changes today. Assessment & Plan (01/14/2020 8:38 AM EDT): Well-controlled on present therapy. No changes. Assessment & Plan (07/15/2019 8:45 AM EST): Well-controlled. With his heart rate in the 40s and a systolic pressure of 100 I have discontinued his a atenolol. Assessment & Plan (01/02/2019 8:06 AM EDT): Well-controlled on present therapy. Assessment & Plan (07/02/2018 10:56 AM EST): Fair control on present therapy. No changes. Assessment & Plan (01/01/2018 2:51 PM EDT): Well controlled on current regimen. Assessment & Plan (05/09/2017 8:46 AM EST): Well-controlled on present therapy. Mixed hyperlipidemia 05/09/2017 Assessment & Plan (07/13/2022 8:27 AM EST): I will have the patient get an updated lipid panel. LDL goal less than 70. Continue rosuvastatin. Assessment & Plan (06/23/2020 9:56 AM EST): Excellent profile with LDL in the 40s and HDL almost 80. Renal and hepatic function are normal. Assessment & Plan (05/18/2020 8:47 AM EST): Most recent LDL was at goal <70. Continue rosuvastatin 40 mg. Assessment & Plan (01/14/2020 8:38 AM EDT): Profile remains excellent with an LDL in the high 40s and HDL almost 90. Renal and hepatic function remain normal. Assessment & Plan (07/15/2019 8:45 AM EST): Excellent profile with an LDL of 41 and HDL of 80. Renal and hepatic function remain normal. Assessment & Plan (01/02/2019 8:07 AM EDT): Excellent profile with an LDL in the 40s and HDL in the 70s. Her creatinine is normal at 1.1 with a BUN of 14 and a potassium of 4.7. LFTs are normal as well. Assessment & Plan (07/02/2018 10:55 AM EST): Recent profile includes an LDL of 51 with an HDL of 74 and triglycerides 71. Creatinine 0.9 with a potassium of 4.9. Assessment & Plan (01/01/2018 2:51 PM EDT): Recent lipid panel shows a total cholesterol of 132, HDL 79, LDL 39, triglycerides 70. Lipids are well controlled on his current dose of Crestor. Assessment & Plan (05/09/2017 8:47 AM EST): Remains well controlled. LDL is in the 50s with a high HDL. Right carpal tunnel syndrome Encounters Date Type Department Care Team Description 04/04/2025 Refill [facility] [address], [address] [place] [address] Amadeo Ewing MD Medication Refill 03/27/2025 5:50 PM EDT - 03/27/2025 11:59 PM EDT Hospital Encounter [facility], Ct Scan [address] [address] Austin Quinn DO Discharge Disposition: Home or Self Care 03/17/2025 Procedure Pass [facility], [address] [address] 03/17/2025 Procedure Pass [facility], [address] [address] 03/17/2025 Transcribe Orders Virtual Department [address] [place] [id number] Austin Quinn DO Abnormal weight loss (Primary Dx) 02/03/2025 1:40 PM EDT Office Visit [facility] [address], [address] [place] [address] Amadeo Ewing MD Mixed hyperlipidemia (Primary Dx); Prescription refill; Atherosclerosis of shoshone-bannock coronary artery of shoshone[place]bannock heart without angina pectoris 01/24/2025 Refill [facility] [address], [address] [place] [address] Amadeo Ewing MD Medication Refill from Last 3 Months Immunizations Immunization Administration Dates Next Due COVID-19 (Pre-04/16) Pfizer Vaccine, Bivalent 12 + 04/04/2022 COVID-19 (Pre-04/16) Pfizer Vaccine, mRNA, PF ,04/07/2021 Influenza High-Dose Quadrivalent Preservative Fr ee IM 02/02/2022,04/22/2020 Influenza High-Dose Trivalent Preservative Free IM 07/21/2019 Influenza Quadrivalent Adjuvanted Preservative F ree IM 04/07/2021 Influenza Quadrivalent w/ Preservative IM 2019 Pneumococcal conjugate PCV13 06/14/2018 Tdap 06/14/2018 Family History Medical History Relation Comments Hypertension Mother Stroke Mother Cancer Sibling Brain tumor Sister Relation Status Comments Mother Sibling Sister Social History Tobacco Use Types Packs/Day Years Used Date Smoking Tobacco: Former Pipe Q uit: 1979 Cigars Quit: 1979 Smokeless Tobacco: Former Tobacco Cessation:Counseling Given: Not Answered Comments:quit 20 yrs ago Alcohol Use Standard [...] Orientation Straight 09/12/2017 3: 40 PM EDT Last Filed Vital Signs Vital Sign Reading Time Taken Comments Blood Pressure 100/62 02/03/2025 1:51 PM EDT Pulse 68 02/03/2025 1:51 PM EDT Temperature 36.7 C (98.1 F) 04/30/2024 10:59 AM EST Respiratory Rate 23 04/30/2024 11:20 AM EST Oxygen Saturation 98% 02/03/2025 1:51 PM EDT Inhaled Oxygen Concentration - - Weight 66.7 kg (147 lb) 02/03/2025 1:51 PM EDT Height 170.2 cm (5' 7.01 ) 02/03/2025 1:51 PM ED T Body Mass Index 23.02 02/03/2025 1:51 PM EDT Plan of Treatment Upcoming Encounters Date Type Department Care Team (Late st Contact Info) Description 08/10/2025 9:00 AM EST Office Visit [facility] [address], [address] [place] [address] Amadeo Ewing MD [address], [address] [place] [address] [email or web address] Health Maintenance Due Date Last Done Comments DEPRESSION SCREENING 1958 ZOSTER VACCINES (1 of 2) 1996 PNEUMOCOCCAL VACCINES (50+ years) (2 of 2 - PPSV23) 08/09/2018 06/14/2018 INFLUENZA VACCINE (#1) 2025 , 02/02/2022, 04/07/2021, Additional history exists COVID-19 VACCINE (2024- season) 2025 04/21/2024, 04/26/2023, 04/04/2022, Additional history exists BLOOD PRESSURE 08/06/2025 02/03/2025 SMOKING Hx and SMOKELESS TOBACCO SCREENING 02/03/2026 02/03/2025 Adult Td,Tdap Booster 06/14/2028 06/14/2018 HEPATITIS C SCREENING Completed 06/27/2018 RSV VACCINE Completed 05/28/2023 HEPATITIS A VACCINES Aged Out No long er eligible based on patient's age to complete this topic HIB VACCINES Aged Out No longer eligi ble based on patient's age to complete this topic MENINGOCOCCAL VACCINES (ACWY) Aged Out No longer eligible based on patient's age to complete this topic MENINGOCOCCAL VACCINES (B) Aged Out N o longer eligible based on patient's age to complete this topic Medical Devices Implanted Type Area Roller Stainer Device Identifier Shelf Expiration Date Model / Serial / Lot Mesh Graft 1.3x1.55in 3.3 3.9cm Med Perfix Polypropylene Monofilament Plug Inguinal Hernia Soft Tissue Repair Cs/2ea - [id number] Implanted:Qty: 1 on 03/22/2022 by Maira Marie MD at [facility] STANDARD Right: Inguinal [employer] 01/20/2028 [id number] / / [id number] Mesh Graft 1.6x1.9in 4.1 4.8cm Lg Perfix Polypropylene Monofilament Plug Inguinal Hernia Soft Tissue Repair Cs/2ea - [id number] Implanted:Qty: 1 on 03/22/2022 by Maira Marie MD at [facility] STANDARD Right: Inguinal [employer] 10/20/2026 [id number] / / [id number] Stent Stent Coronary Description:2 stents Procedures Procedure Name Priority Date/Time Associated Diagnosis Comments CT ABDOMEN/PELVIS WITH CONTRAST Routine 03/27/2025 6:55 PM EDT Abnormal weight loss CT CHEST WITH CONTRAST Routine 03/27/2025 6:55 PM EDT Abnormal weight loss HEPATITIS C ANTIBODY, QUALITATIVE Routine 06/27/2018 8:40 AM EST Routine general medical examination at a health care facility from Last 3 Months or Most Recently Relevant to Health Maintenance Results * CT CHEST WITH CONTRAST (03/27/2025 6:55 PM EDT) Anatomical Region Laterality Modality Chest Computed Tomogra phy 04/01/2025 6:25 AM EDT Impressions 04/01/2025 5:[address] No specific CT findings in the thorax to account for symptoms of weight loss. Slight increased left pleural thickening and trace effusion with unchanged bilateral pleural calcifications, likely related to history of asbestos exposure. Stable bilateral pulmonary nodules up to 5 mm since 06/11/2020. Narrative 04/01/2025 5:[address] CHEST WITH CONTRAST Referring clinician's provided indication for this examination in Epic: Outside Radiology Order; weight loss TECHNIQUE: Multidetector CT of the chest was performed with intravenous contrast using tailored dose modulation techniques. COMPARISON: CT CHEST WITH CONTRAST FINDINGS: Devices/Tubes/Lines: None. Lungs: Central airways are clear. Diffuse bronchial wall thickening. Mild elevation of the left hemidiaphragm and left greater than right basilar atelectasis. No consolidation or pulmonary edema. Stable bilateral pulmonary nodules up to 5 mm in the perifissural right lower lobe (5:204), with additional nodules for example in the left lung on 5:153, 223, and right lung on 5:144, 214, 218, and 243 which are unchanged from 06/11/2020. No new or enlarging pulmonary nodules. Pleura: Increased mild left lower lung pleural thickening and trace fluid with calcification. Similar bilateral pleural calcifications and thickening. No pneumothorax. Mediastinum: No nodules in the visualized thyroid gland. Cardiac chambers are stable in size. No pericardial effusion. Mild amount of aortic valve calcification. Central pulmonary arteries patent. Atherosclerotic calcifications of the thoracic aorta and its major branches. Coronary artery calcifications and coronary stents. Lymph Nodes: No enlarged supraclavicular, axillary, mediastinal, or hilar lymph nodes. Upper Abdomen: Reported separately. Chest Wall: No chest wall mass. Bones: Skeletal degenerative changes including bridging anterior osteophytes. Unchanged healed fracture deformities of the left ribs. No suspicious lytic or blastic lesion. Procedure Note Maycol Gordillo MD - 04/01/2025 CT CHEST WITH CONTRAST Referring clinician's provided indication for this examination in Epic:Outside Radiology Order; weight loss TECHNIQUE: Multidetector CT of the chest was performed with intravenouscontrast using tailored dose modulation techniques. COMPARISON: CT CHEST WITH CONTRAST FINDINGS: Devices/Tubes/Lines: None. Lungs: Central airways are clear. Diffuse bronchial wall thickening. Mildelevation of the left hemidiaphragm and left greater than right basilaratelectasis. No consolidation or pulmonary edema. Stable bilateralpulmonary nodules up to 5 mm in the perifissural right lower lobe (5:204),with additional nodules for example in the left lung on 5:153, 223, andright lung on 5:144, 214, 218, and 243 which are unchanged from06/11/2020. No new or enlarging pulmonary nodules. Pleura: Increased mild left lower lung pleural thickening and trace fluidwith calcification. Similar bilateral pleural calcifications andthickening. No pneumothorax. Mediastinum: No nodules in the visualized thyroid gland. Cardiac chambersare stable in size. No pericardial effusion. Mild amount of aortic valvecalcification. Central pulmonary arteries patent. Atheroscleroticcalcifications of the thoracic aorta and its major branches. Coronaryartery calcifications and coronary stents. Lymph Nodes: No enlarged supraclavicular, axillary, mediastinal, or hilarlymph nodes. Upper Abdomen: Reported separately. Chest Wall: No chest wall mass. Bones: Skeletal degenerative changes including bridging anteriorosteophytes. Unchanged healed fracture deformities of the left ribs. Nosuspicious lytic or blastic lesion. IMPRESSION: No specific CT findings in the thorax to account for symptoms of weightloss. Slight increased left pleural thickening and trace effusion with unchangedbilateral pleural calcifications, likely related to history of asbestosexposure. Stable bilateral pulmonary nodules up to 5 mm since 06/11/2020. us Austin A Bigda DO IMG CT CHEST Final Result * CT ABDOMEN/PELVIS WITH CONTRAST (03/27/2025 6:55 PM EDT) Anatomical Region Laterality Modality Abdomen, Pelvis Computed Tomogra phy 04/01/2025 6:08 AM EDT Impressions 04/01/2025 5:06 PM EDT No specific CT findings in the abdomen/pelvis to account for symptoms of weight loss. Narrative 04/01/2025 5:[address] ABDOMEN/PELVIS WITH CONTRAST Referring clinician's provided indication for this examination in Epic: Outside Radiology Order; weight loss TECHNIQUE: Multidetector-row CT of the abdomen and pelvis was performed after administration of intravenous contrast using tailored dose modulation techniques. Images were reconstructed in the axial, coronal, and sagittal planes. COMPARISON: CT ABDOMEN/PELVIS WITH CONTRAST FINDINGS: Lower Chest: CT chest from the same day is reported separately. Liver: No focal lesions. Scattered punctate calcifications, likely calcified granulomas. Biliary: Noninflamed gallbladder. No biliary ductal dilatation. Spleen: No splenomegaly or focal lesions. Pancreas: No masses or ductal dilatation. Adrenal Glands: No nodules. Kidneys/Ureters: No solid masses, stones, or hydronephrosis. Unchanged nonspecific punctate cortical calcification in the right kidney lower pole. Bowel: No distention or wall thickening. Noninflamed appendix. Noninflamed colonic diverticuli. Peritoneum/Retroperitoneum: No masses, pneumoperitoneum, or fluid. Lymph Nodes: No lymphadenopathy. Pelvic Organs/Bladder: Mild prostatomegaly. Bladder is nondistended which limits assessment. Vessels: No abdominal aortic aneurysm. Scattered atherosclerotic calcifications of the abdominal aorta and its major branches. Bones/Soft Tissues: Skeletal degenerative changes. No destructive osseous lesions. Procedure Note Maycol Gordillo MD - 04/01/2025 CT ABDOMEN/PELVIS WITH CONTRAST Referring clinician's provided indication for this examination in Epic:Outside Radiology Order; weight loss TECHNIQUE: Multidetector-row CT of the abdomen and pelvis was performedafter administration of intravenous contrast using tailored dosemodulation techniques. Images were reconstructed in the axial, coronal,and sagittal planes. COMPARISON: CT ABDOMEN/PELVIS WITH CONTRAST FINDINGS: Lower Chest: CT chest from the same day is reported separately. Liver: No focal lesions. Scattered punctate calcifications, likelycalcified granulomas. Biliary: Noninflamed gallbladder. No biliary ductal dilatation. Spleen: No splenomegaly or focal lesions. Pancreas: No masses or ductal dilatation. Adrenal Glands: No nodules. Kidneys/Ureters: No solid masses, stones, or hydronephrosis. Unchangednonspecific punctate cortical calcification in the right kidney lowerpole. Bowel: No distention or wall thickening. Noninflamed appendix. Noninflamedcolonic diverticuli. Peritoneum/Retroperitoneum: No masses, pneumoperitoneum, or fluid. Lymph Nodes: No lymphadenopathy. Pelvic Organs/Bladder: Mild prostatomegaly. Bladder is nondistended whichlimits assessment. Vessels: No abdominal aortic aneurysm. Scattered atheroscleroticcalcifications of the abdominal aorta and its major branches. Bones/Soft Tissues: Skeletal degenerative changes. No destructive osseouslesions. IMPRESSION: No specific CT findings in the abdomen/pelvis to account for symptoms ofweight loss. us Austin A Bigda DO IMG CT ABD/PELVIS Final Result * Hepatitis C antibody, qualitative (06/27/2018 8:40 AM EST) HCV Negative Negative [facility] Comment: This is a screening test and should be confirmed with molecular testing Blood 06/27/2018 8:40 AM EST 06/27/2018 9:03 AM EST us Austin A Bigda DO LAB BLOOD ORDERABLES Final Resul t [facility]ON[facility] [address] [address] from Last 3 Months or Most Recently Relevant to Health Maintenance [place] [address] [place] [address] MEDICARE HMO REPLACEMENT [place] MEDICARE [place] [address] [place] [address] MEDICARE HMO REPLACEMENT [place] MEDICARE HMO REPLACEMENT [place] MEDICARE HMO REPLACEMENT [place] MEDIC[place] H[place] REPLACEMENT [place] MEDICARE HMO REPLACEMENT MEDICARE HMO REPLACEMENT Advance Directives For more information, please contact: [phone] (9AM - 5PM [facility], Sunday-Sunday) Documents on File Type Date Recorded Patient Commercial Lines Account Manager Tobias KIMBROUGH 07/03/2019 8:58 AM * Full Code (Latest Code Status on File) Date Activated Date Inactivated Comments 03/22/2022 1:08 PM Question Answer Comments Code Status Confirmed With: Patient * Full Code (Presumed) Date Activated Date Inactivated Comments 07/02/2019 8:47 AM 07/02/2019 3:06 PM Care Teams Journeyman Pipe Welder Relationship Specialty Start Date End Date Austin Quinn DO [email or web address] PCP - General 04/12/17 Additional Source Comments The information contained in this document represents components of the legal health record. It is not the complete legal health record.[facility]
--- OUTSIDE RECORDS SUMMARY | 2025-04-15 22:07 | XMS_ITS | Encounter Summary ---
Author Organization [facility] Address [address] [place] [address] [place] [phone] Phone Care Team Providers Care Instrument Lens Inspector Name Role Phone Austin Quinn Primary Care Provider [phone] Encounter Details Date Type Department Care Team (Late Contact Info) Description 10/06/2020 Procedure Pass [facility] Admitting Dept Virtual Department [address] [place] [address] Social History Tobacco Use Types Packs/Day Years Used Date Smoking Tobacco: Former Cigars Smokeless Tobacco: Former Comments:quit 20 yrs ago Alcohol Use Standard Drinks/Week Comments Yes 0 [...] Description 08/10/2025 9:00 AM EST Office Visit [facility] [address] [place] [address] [address], [address] [place] [address] Amadeo Ewing MD [address] [facility], [address] [place] [address] [email or web address] documented as of this encounter Visit Diagnoses Not on filedocumented in this encounter Additional Health Concerns Infection Onset Date Last Indicated Resolved Time CoV-Risk 05/26/2022 05/26/2022 06/06/2022 3:51 AM EST documented as of this encounter Care Teams Instrument Lens Inspector Relationship Specialty Start Date End Date Austin Quinn DO [email or web address] PCP - General 04/12/17 documented as of this encounter Additional Source Comments The information contained in this document represents components of the legal health record. It is not the complete legal health record.[facility]
--- OUTSIDE RECORDS SUMMARY | 2025-04-15 22:07 | XMS_ITS | Encounter Summary ---
Author Organization [facility] Address [address] [place] [address] [place] [address] Phone Care Team Providers Care Lead Security Officer Name Role Phone Austin Quinn DO Primary Care Provider [phone] Encounter Details Date Type Department Care Team (Late st Contact Info) Description 05/25/2020 Procedure Pass [facility], Ct Scan - [address] [address] Social History Tobacco Use Types Packs/Day Years [...] Description 08/10/2025 9:00 AM EST Office Visit [facility] [address] [place] [address] 3rd Floor, [address] [place] [address] Amadeo Ewing MD 22 [facility], [address] [address] [email or web address] documented as of this encounter Visit Diagnoses Not on filedocumented in this encounter Additional Health Concerns Infection Onset Date Last Indicated Resolved Time CoV-Risk 05/26/2022 05/26/2022 06/06/2022 3:51 AM EST documented as of this encounter Care Teams Lead Security Officer Relationship Specialty Start Date End Date Chuymarianna Austin DO [email or web address] PCP - General 04/12/17 documented as of this encounter Additional Source Comments The information contained in this document represents components of the legal health record. It is not the complete legal health record.[facility]
--- OUTSIDE RECORDS SUMMARY | 2025-04-15 22:07 | XMS_ITS | Encounter Summary ---
Author Organization [facility] Address [address] [facility] [address] [place] [address] Phone Care Team Providers Care Pharmacist Intern Name Role Phone Austin Quinn Primary Care Provider [phone] Encounter Details Date Type Department Care Team (Late st Contact Info) Description 10/11/2022 Procedure Pass [facility], Ct Scan - [address] [address] Social History Tobacco Use Types Packs/Day Years [...] Description 08/10/2025 9:00 AM EST Office Visit [facility] 22 [facility] 3rd Floor, [address] [place] [address] Amadeo Ewing MD 22 [facility], [address] [place] [address] [email or web address] documented as of this encounter Visit Diagnoses Not on filedocumented in this encounter Care Teams Pharmacist Intern Relationship Specialty Start Date End Date ChuyAustin cabral [email or web address] [email or web address] PCP - General 04/12/17 documented as of this encounter Additional Source Comments The information contained in this document represents components of the legal health record. It is not the complete legal health record.[facility]
--- OUTSIDE RECORDS SUMMARY | 2025-04-15 22:07 | XMS_ITS | Encounter Summary ---
Author Organization [facility] Address [address] [place] [address] [place] [address] Phone Care Team Providers Care Yoke Setter Name Role Phone Austin Quinn Primary Care Provider [phone] Encounter Details Date Type Department Care Team (Late st Contact Info) Description 03/22/2022 Procedure Pass [place] Admitting Dept - Virtual Department [address] [place] [address] Social History Tobacco Use Types Packs/Day Years [...] Description 08/10/2025 9:00 AM EST Office Visit [facility] 22 [facility] 3rd Floor, [address] [place] [address] Amadeo Ewing MD 22 [facility], [address] [place] [address] documented as of this encounter Visit Diagnoses Not on filedocumented in this encounter Additional Health Concerns Infection Onset Date Last Indicated Resolved Time CoV-Risk 05/26/2022 05/26/2022 06/06/2022 3:51 AM EST documented as of this encounter Care Teams Yoke Setter Relationship Specialty Start Date End Date Austin Quinn DO PCP - General 04/12/17 documented as of this encounter Additional Source Comments The information contained in this document represents components of the legal health record. It is not the complete legal health record.[facility]
--- OUTSIDE RECORDS SUMMARY | 2025-04-15 22:07 | XMS_ITS | Encounter Summary ---
Author Organization [facility] Address [address] [place] [address] [place] [address] Phone Care Team Providers Care Insulation Technician Name Role Phone Austin Quinn Primary Care Provider Encounter Details Date Type Department Care Team (Late st Contact Info) Description 07/31/2023 Ancillary Orders [facility], X-Ray - [facility] [address] [place] [address] Karen Tatum PA 6 [facility] [place] [address] [place] [address] Cough, unspecified type (Primary Dx) Social History Tobacco Use Types [...] Description 08/10/2025 9:00 AM EST Office Visit [facility] 22 [facility] 3rd Floor, [address] [place] [address] Amadeo Ewing MD 22 [facility], [address] [place] [address] [email or web address] documented as of this encounter Results * XR CHEST PA AND LATERAL 2 VIEWS (07/31/2023 2:30 PM EST) Anatomical Region Laterality Modality Chest Computed Radiogr aphy 07/31/2023 5:25 PM EST Impressions 07/31/2023 5:26 PM EST No acute findings. Narrative 07/31/2023 5:26 PM EST XR CHEST PA AND LATERAL 2 VIEWS Referring clinician's provided indication for this examination in [facility]: Cough COMPARISON: June 14, 2022 FINDINGS: Lungs: No pneumonia or pulmonary edema. Pleura: No pleural effusion. No pneumothorax. Unchanged calcified pleural plaques. Heart/Mediastinum: Heart size normal. Atherosclerotic calcifications in aorta. Bones/Soft Tissues: No acute finding Procedure Note Vivek Higgins MD, KELSY - 07/31/2023 XR CHEST PA AND LATERAL 2 VIEWS Referring clinician's provided indication for this examination in [facility]:Cough COMPARISON: June 14, 2022 FINDINGS: Lungs: No pneumonia or pulmonary edema. Pleura: No pleural effusion. No pneumothorax. Unchanged calcified pleuralplaques. Heart/Mediastinum: Heart size normal. Atherosclerotic calcifications inaorta. Bones/Soft Tissues: No acute finding IMPRESSION: No acute findings. us Karen OCHOA IMG XR CHEST Final Resul t documented in this encounter Visit Diagnoses Diagnosis Cough, unspecified type- Primary Cough, unspecified type documented in this encounter Care Teams Insulation Technician Relationship Specialty Start Date End Date Austin Quinn DO [email or web address] PCP - General 04/12/17 documented as of this encounter Additional Source Comments The information contained in this document represents components of the legal health record. It is not the complete legal health record.[facility]
--- OUTSIDE RECORDS SUMMARY | 2025-04-15 22:07 | XMS_ITS | Encounter Summary ---
Author Organization [facility] Address [address] [place] [address] [place] [address] Phone Care Team Providers Care Maintenance Associate Name Role Phone Austin Quinn DO Primary Care Provider [phone] Encounter Details Date Type Department Care Team (Late Contact Info) Description 08/14/2018 Ancillary Orders Virtual Department [address] [place] [address] Jewell Preston, CAITLIN Holloway. [address]. [address] [place] [address] [email or web address] GERD without esophagitis Social History Tobacco Use Types Packs/Day Years [...] Description 08/10/2025 9:00 AM EST Office Visit [facility] [address] [place] [address] 3rd Floor, [address] [place], [place] [phone] Amadeo Ewing MD 22 [facility], [address] [place] [address] [email or web address] documented as of this encounter Visit Diagnoses Diagnosis GERD without esophagitis Esophageal reflux documented in this encounter Additional Health Concerns Infection Onset Date Last Indicated Resolved Time CoV-Risk 05/26/2022 05/26/2022 06/06/2022 3:51 AM EST documented as of this encounter Care Teams Maintenance Associate Relationship Specialty Start Date End Date Austin Quinn DO [email or web address] PCP - General 04/12/17 documented as of this encounter Additional Source Comments The information contained in this document represents components of the legal health record. It is not the complete legal health record.[facility]
--- OUTSIDE RECORDS SUMMARY | 2025-04-15 22:07 | XMS_ITS | Encounter Summary ---
Author Organization [facility] Address [address] [place] [address] Phone Care Team Providers Care Hearing Therapist Name Role Phone Austin Quinn Primary Care Provider [phone] Encounter Details Date Type Department Care Team (Miguelina ackerman Contact Info) Description 01/07/2024 Procedure Pass [facility], Ct Scan - [address] [address] Social History Tobacco Use Types Packs/Day Years [...] Description 08/10/2025 9:00 AM EST Office Visit [facility] 22 [facility] 3rd Floor, [address] [place] [address] Amadeo Ewing MD 22 [facility], [address] [place] [address] documented as of this encounter Visit Diagnoses Not on filedocumented in this encounter Care Teams Hearing Therapist Relationship Specialty Start Date End Date Austin Quinn DO PCP - General 04/12/17 documented as of this encounter Additional Source Comments The information contained in this document represents components of the legal health record. It is not the complete legal health record.[facility]
--- OUTSIDE RECORDS SUMMARY | 2025-04-15 22:07 | XMS_ITS | Encounter Summary ---
Author Organization [facility] Address [address] [place] [address] Phone Care Team Providers Care Electrical Integrator Name Role Phone Austin Quinn Primary Care Provider [phone] Encounter Details Date Type Department Care Team (Late Contact Info) Description 01/09/2023 Procedure Pass [facility] Admitting Dept Virtual Department [address] [place] [address] Social History Tobacco Use Types Packs/Day Years [...] Description 08/10/2025 9:00 AM EST Office Visit [facility] 22 [facility] 3rd Floor, [address] [place] [address] Amadeo Ewing MD 22 [facility], [address] [place] [address] documented as of this encounter Visit Diagnoses Not on filedocumented in this encounter Care Teams Electrical Integrator Relationship Specialty Start Date End Date Austin Quinn DO PCP - General 04/12/17 documented as of this encounter Additional Source Comments The information contained in this document represents components of the legal health record. It is not the complete legal health record.[facility]
--- OUTSIDE RECORDS SUMMARY | 2025-04-15 22:07 | XMS_ITS | Encounter Summary ---
Author Organization [facility] Address [address] [place] [address] [place] [address] Phone Care Team Providers Care Top Trimmer Name Role Phone Austin Quinn DO Primary Care Provider [phone] Encounter Details Date Type Department Care Team (Late Contact Info) Description 06/02/2022 Transcribe Orders Virtual Department [address] [place] [address] Austin Quinn DO [address] [facility] [place] [address] [place] [address] [email or web address] Pneumonia due to infectious organism, unspecified laterality, unspecified part of lung (Primary Dx) Social History Tobacco Use Types [...] Description 08/10/2025 9:00 AM EST Office Visit [facility] [address] [place] [address] 3rd Floor, [address] [place] [address] Amadeo Ewing MD [address] [place] [address], [facility] [address] [place] [address] [email or web address] documented as of this encounter Results * XR CHEST PA AND LATERAL 2 VIEWS (06/14/2022 10:40 AM EST) Anatomical Region Laterality Modality Chest Computed Radiogr aphy 06/14/2022 5:18 PM EST Impressions 06/14/2022 5:20 PM EST No evidence of pneumonia or pulmonary edema. Narrative 06/14/2022 5:20 PM EST XR CHEST PA AND LATERAL 2 VIEWS COMPARISON: XR CHEST PA AND LATERAL 2 VIEWS FINDINGS: Devices/Tubes/Lines: None. Lungs: The lungs are clear. No focal consolidation or pulmonary edema. Pleura: Normal. No pleural effusion or pneumothorax. Heart/Mediastinum: Normal heart and mediastinum. Bones/Soft Tissues: Chronic fracture deformities of the left ribs and the left clavicle. Procedure Note William Fontenot MD - 06/14/2022 XR CHEST PA AND LATERAL 2 VIEWS COMPARISON: XR CHEST PA AND LATERAL 2 VIEWS FINDINGS: Devices/Tubes/Lines: None. Lungs: The lungs are clear. No focal consolidation or pulmonary edema. Pleura: Normal. No pleural effusion or pneumothorax. Heart/Mediastinum: Normal heart and mediastinum. Bones/Soft Tissues: Chronic fracture deformities of the left ribs and theleft clavicle. IMPRESSION: No evidence of pneumonia or pulmonary edema. us Austin A Bigda DO IMG XR CHEST Final Result documented in this encounter Visit Diagnoses Diagnosis Pneumonia due to infectious organism, unspecified laterality, unspecified part of lung- Primary Pneumonia due to infectious organism, unspecified laterality, unspecified part of lung documented in this encounter Additional Health Concerns Infection Onset Date Last Indicated Resolved Time CoV-Risk 05/26/2022 05/26/2022 06/06/2022 3:51 AM EST documented as of this encounter Care Teams Top Trimmer Relationship Specialty Start Date End Date ChuyAustin cabral DO [email or web address] PCP - General 04/12/17 documented as of this encounter Additional Source Comments The information contained in this document represents components of the legal health record. It is not the complete legal health record.[facility]
--- OUTSIDE RECORDS SUMMARY | 2025-04-15 22:07 | XMS_ITS | Encounter Summary ---
Author Organization [facility] Address [address] [place] [address] Phone Care Team Providers Care Preschool Special Education Teacher Name Role Phone Austin Quinn DO Primary Care Provider [phone] Reason for Referral * MRI/CAT Scan - Closed Specialty Diagnoses / Procedures Referred By Angela mace Referred To Contact Radiology Diagnoses Abdominal aortic aneurysm (AAA) without rupture Procedures CT Angio Chest Austin Quinn DO Phone: tel: fax: mailto:[email or web address] Referral ID Status Reason Start Date Expiration Date Visits Re quested Visits Authorized [id number] Closed 07/03/2018 07/03/2019 1 1 Encounter Details Date Type Department Care Team (Late st Contact Info) Description 07/03/2018 Ancillary Orders Virtual Department 30 [place] [address] Austin Quinn DO 179 [facility] [place] [address] [email or web address] Abdominal aortic aneurysm (AAA) without rupture Social History Tobacco Use Types Packs/Day Years [...] Description 08/10/2025 9:00 AM EST Office Visit [facility] 22 [facility] 3rd Floor, [address] [place] [address] Amadeo Ewing MD 22 [facility], [address] [place] [address] [email or web address] Scheduled Orders Name Type Priority Associated Diagnoses Orde r Schedule CT Angio Chest Imaging Routine Abdominal aortic aneurysm (AAA) without rupture Expected: 07/03/2018, Expires: 10/02/2019 documented as of this encounter Visit Diagnoses Diagnosis Abdominal aortic aneurysm (AAA) without rupture documented in this encounter Additional Health Concerns Infection Onset Date Last Indicated Resolved Time CoV-Risk 05/26/2022 05/26/2022 06/06/2022 3:51 AM EST documented as of this encounter Care Teams Preschool Special Education Teacher Relationship Specialty Start Date End Date Austin Quinn DO [email or web address] PCP - General 04/12/17 documented as of this encounter Additional Source Comments The information contained in this document represents components of the legal health record. It is not the complete legal health record.[facility]
--- OUTSIDE RECORDS SUMMARY | 2025-04-15 22:07 | XMS_ITS | Encounter Summary ---
Author Organization [facility] Address [address] [place] [address] Phone Care Team Providers Care Smt Technician Name Role Phone Austin Quinn Primary Care Provider [phone] Reason for Referral * Molecular Pathology - Closed Specialty Diagnoses / Procedures Referred By Angela mace Referred To Contact Diagnoses Abnormal weight loss Procedures Hemochromatosis Gene Analysis Sylvia Israel PA-C Phone: tel: fax: mailto:[email or web address] Referral ID Status Reason Start Date Expiration Date Visits Re quested Visits Authorized [id number] Closed 02/15/2024 02/14/2025 1 1 Encounter Details Date Type Department Care Team (Latest Contact Info) Description 02/15/2024 Transcribe Orders [facility] [address] [place] [address] Sylvia Israel PA-C [address] [place] [address] Abnormal weight loss (Primary Dx) Social History [...] Description 08/10/2025 9:00 AM EST Office Visit [facility] [address] [place] [address] 3rd Floor, [address] [place] [address] Amadeo Ewing MD [address] [address] [email or web address] documented as of this encounter Results * Ferritin (02/18/2024 9:10 AM EDT) FERRITIN 118 30 - 400 ug/L [facility] Blood 02/18/2024 9:10 AM EDT 02/18/2024 9:13 AM EDT us Sylvia Israel PA-C LAB BLOOD ORDERABLES Final Resu lt [facility] [address] [place] [address] * Iron and iron binding capacity (02/18/2024 9:10 AM EDT) IRON 87 45 - 160 ug/dL [facility] IRON BINDING CAPACITY 343 228 - 428 ug/dL [facility] TRANSFERRIN SATURAT. 25 20 - 55 % [facility] Blood 02/18/2024 9:10 AM EDT 02/18/2024 9:13 AM EDT us Sylvia Israel PA-C LAB BLOOD ORDERABLES Final Resu lt [facility] [address] [place] [address] * Hemochromatosis Gene Analysis (02/18/2024 9:10 AM EDT) [facility] HFE Gene analysis SEE NOTE 07:52 AM [facility] DPT OF LAB MED AND PAT+ Comment: (NOTE) Test Result Flag Unit RefValue Hereditary Hemochromatosis HFE Test Result Summary NEGATIVE Result SEE NOTE C282Y: Not detected. H63D: Not detected. Interpretation SEE NOTE This result reduces the risk but does not rule out either a diagnosis of or predisposition for hereditary hemochromatosis (HH). This assay does not rule out the presence of other disease-causing variants in the HFE gene or in other genes associated with hemochromatosis. Non-HFE-HH causes should also be considered. These results should be interpreted in the context of clinical findings, family history, and other laboratory testing (e.g. serum transferrin-iron saturation and serum ferritin). Genetic testing and other laboratory testing of an affected family member can determine if this result is of predictive value for this individual. A genetic consultation may be of benefit. ADDITIONAL INFORMATION An online research opportunity called [employer] ([email or web address]), a project of [employer], is available for the recipient of this genetic test. This patient registry collects de-identified genetic and health information to advance the knowledge of genetic variants. [facility] is a collaborator of [employer]. This may not be applicable for all tests. Test results should be interpreted in the context of clinical findings, family history, and other laboratory data. Misinterpretation of results may occur if the information provided is inaccurate or incomplete. Rare polymorphisms exist that could lead to false-negative or false-positive results. If results obtained do not match the clinical findings, additional testing should be considered. Bone Marrow transplants from allogenic donors will interfere with testing. Call [facility] for instructions for testing patients who have received a bone marrow transplant. One or more in silico tools were used to assist in the interpretation of these results. These tools are updated regularly and predictions for a given variant may change. Additionally, the predictability of these tools for the determination of pathogenicity is currently unvalidated. This test was developed and its performance characteristics determined by [facility] in a manner consistent with CLIA requirements. This test has not been cleared or approved by the U.S. Food and Drug Administration. Specimen WB Whole Blood Method SEE NOTE Droplet Digital Polymerase Chain Reaction (ddPCR) was used to test for the following three variants in the HFE gene; C282Y, H63D, and S65C. Because of the minimal effect on iron metabolism associated with the S65C variant, it is only reported when it is found with the C282Y variant (i.e. if the patient has the C282Y/S65C genotype). Released By SEE NOTE Finn Sanchez MD A portion of the testing process was performed at [facility] site [id number]. Blood 02/18/2024 9:10 AM EDT 02/18/2024 9:13 AM EDT us Sylvia Israel PA-C LAB BLOOD ORDERABLES Final Resu lt [facility] DPT OF LAB MED AND PAT+ [address] [place] [address] documented in this encounter Visit Diagnoses Diagnosis Abnormal weight loss- Primary Loss of weight documented in this encounter Care Teams Smt Technician Relationship Specialty Start Date End Date Austin Quinn DO PCP - General 04/12/17 documented as of this encounter Additional Source Comments The information contained in this document represents components of the legal health record. It is not the complete legal health record.[facility]
--- OUTSIDE RECORDS SUMMARY | 2025-04-15 22:07 | XMS_ITS | Encounter Summary ---
Author Organization [facility] Address [address] [place] [address] Phone Care Team Providers Care Disintegrator Operator Name Role Phone Austin Quinn Primary Care Provider [phone] Reason for Referral * MRI/CAT Scan - Closed Specialty Diagnoses / Procedures Referred By Angela mace Referred To Contact Radiology Diagnoses Solitary pulmonary nodule Procedures CT Chest Karen Tatum PA Phone: tel: fax: Referral ID Status Reason Start Date Expiration Date Visits Re quested Visits Authorized [id number] Closed 05/25/2020 11/21/2020 1 1 Encounter Details Date Type Department Care Team (Latest Contact Info) Description 05/25/2020 Transcribe Orders Virtual Department [address] [place] [id number] Karen Tatum PA [address] [facility] [place] [address] [place] [address] Solitary pulmonary nodule (Primary Dx) Social History Tobacco Use Types [...] Description 08/10/2025 9:00 AM EST Office Visit [facility] [address] [facility] 3rd Floor, [address] [place] [address] Amadeo Ewing MD [address] [facility], [address] [place] [address] [email or web address] [email or web address] documented as of this encounter Results * CT CHEST WITHOUT CONTRAST (06/11/2020 8:32 AM EST) Anatomical Region Laterality Modality Chest Computed Tomogra phy 06/11/2020 8:47 AM EST Impressions 06/11/2020 9:07 AM EST Bilateral calcific pleural plaquing apparently accounting for the nodular opacity on the prior chest radiograph, with multiple presumed postinflammatory pulmonary nodules demonstrated bilaterally, a few of which are faintly calcified suggesting granulomas. If the patient is at high clinical risk of pulmonary malignancy follow-up CT in 12 months time could be considered for surveillance. TOTAL CTDIvol: mGy POS - [id number] Narrative 06/11/2020 9:07 AM EST COMPARISON: 05/16/2020 radiographs TECHNIQUE: CT chest without IV contrast. Multiplanar reformatted images generated. Automated exposure control utilized. FINDINGS: 5 there are multiple calcified pleural plaques scattered along the margins of the hemithoraces bilaterally, more extensive on the right than left and on the right apparently accounting for the nodular opacity seen on the chest radiograph. Plaquing is most pronounced along the margins of the right hemidiaphragm. There are multiple small faintly calcified and noncalcified pulmonary nodules with a 4 mm right lower lobe nodule closely approximated to the interlobar fissure (series 4 image 159), 4 mm left lower lobe nodule contiguous with the interlobar fissure (image 206), and with a 4 mm peripheral left lower lobe parenchymal nodule (image 199). Additional 3 mm or smaller nodules are present bilaterally. No focal airspace infiltrate or pleural effusion. No vasquez bronchiectasis. No endotracheal or mainstem endobronchial nodules apparent. There is limited evaluation of the pulmonary moni due to the lack of intravenous contrast but no grossly enlarged superior mediastinal lymph nodes or pericardial effusion are demonstrated. Aortic arch calcific mural plaquing is present. Coronary artery calcification is noted. No supraclavicular mass or axillary lymphadenopathy demonstrated. 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 No acute traumatic or destructive bony abnormality suggested. Adrenal glands are not frankly enlarged. Liver and spleen are felt to be within normal limits for the non-contrast state with a small splenule present along the anterior aspect of the lower pole. No gross pancreatic enlargement or peripancreatic inflammatory changes are demonstrated. Procedure Note Brayden Pérez MD - 06/11/2020 COMPARISON: 05/16/2020 radiographs TECHNIQUE: CT chest without IV contrast. Multiplanar reformatted imagesgenerated. Automated exposure control utilized. FINDINGS: 5 there are multiple calcified pleural plaques scattered along the marginsof the hemithoraces bilaterally, more extensive on the right than left andon the right apparently accounting for the nodular opacity seen on thechest radiograph. Plaquing is most pronounced along the margins of theright hemidiaphragm. There are multiple small faintly calcified andnoncalcified pulmonary nodules with a 4 mm right lower lobe nodule closelyapproximated to the interlobar fissure (series 4 image 159), 4 mm leftlower lobe nodule contiguous with the interlobar fissure (image 206), andwith a 4 mm peripheral left lower lobe parenchymal nodule (image 199).Additional 3 mm or smaller nodules are present bilaterally. No focalairspace infiltrate or pleural effusion. No vasquez bronchiectasis. Noendotracheal or mainstem endobronchial nodules apparent. There is limited evaluation of the pulmonary moni due to the lack ofintravenous contrast but no grossly enlarged superior mediastinal lymphnodes or pericardial effusion are demonstrated. Aortic arch calcific muralplaquing is present. Coronary artery calcification is noted. No supraclavicular mass or axillary lymphadenopathy demonstrated. Thereare multiple healed left rib fracture deformities with thoracicspondylosis and ossification of the anterior longitudinal ligamentsuggesting underlying DISH. No acute traumatic or destructive bonyabnormality suggested. Adrenal glands are not frankly enlarged. Liver and spleen are felt to bewithin normal limits for the non-contrast state with a small splenulepresent along the anterior aspect of the lower pole. No gross pancreaticenlargement or peripancreatic inflammatory changes are demonstrated. IMPRESSION: Bilateral calcific pleural plaquing apparently accounting for the nodularopacity on the prior chest radiograph, with multiple presumedpostinflammatory pulmonary nodules demonstrated bilaterally, a few ofwhich are faintly calcified suggesting granulomas. If the patient is athigh clinical risk of pulmonary malignancy follow-up CT in 12 months timecould be considered for surveillance. TOTAL CTDIvol: mGy POS - [id number] us Karen OCHOA IMG CT CHEST Final Resul t documented in this encounter Visit Diagnoses Diagnosis Solitary pulmonary nodule- Primary Solitary pulmonary nodule documented in this encounter Additional Health Concerns Infection Onset Date Last Indicated Resolved Time CoV-Risk 05/26/2022 05/26/2022 06/06/2022 3:51 AM EST documented as of this encounter Care Teams Disintegrator Operator Relationship Specialty Start Date End Date Austin Quinn DO [email or web address] PCP - General 04/12/17 documented as of this encounter Additional Source Comments The information contained in this document represents components of the legal health record. It is not the complete legal health record.[facility]
--- OUTSIDE RECORDS SUMMARY | 2025-04-15 22:08 | XMS_ITS | Continuity of Care Document ---
Author Organization [facility], [facility] Address [address] [place] [address] Assessment No assessment recorded. Plan of Treatment Reminders Order Date Submit Date Provider Last Modified By Organization Details Last Modified Time Details Appointments FOLLOW UP 15 2024 04:00P M DR SANTIAGO Not available Not available Not available FOLLOW UP 15 [address] 10:[address] SANTIAGO Not available Not available Not available FOLLOW UP 15 2024 09:45A [facility] Not available Not available Not available Nurse Visit 15 2024 09:30A M [facility] Not available Not available Not available Nurse Visit 15 2025 09:30A M [facility] Not available Not available Not available Nurse Visit 15 2025 09:30A M [facility] Not available Not available Not available Nurse Visit 15 2025 09:30A M [facility] Not available Not available Not available Lab None recorded. Referral None recorded. Procedures None recorded. Surgeries None recorded. Imaging None recorded. Medication Orders cyanocoba angela (vit B-12) 1,000 mcg/mL injection solution 2024 025 [id number], [address] [place], [place], [id number], 04/13/2025 15:03:01 Patient TargetsNo targets recorded. Patient InstructionsNo instructions recorded. Reason for Referral None Reported. Results Created Date Observation Date Name Description Value Unit Range Abnormal Flag Note LastModifiedBy Organization Detail LastModifiedTime 04/01/2003/27/2025 CT, chest + abdom en + pelvi s, w/ contr ast No observ ation record ed. [facility] [address], [place], [address], 04/02/2025 22:22:28 04/01/20 25 03/27/2025 CT, chest , w/ contr ast No observ ation record ed. [facility] [address] [facility] [address], [place], [address], 04/02/2025 22:25:52 Result Notes None recorded. Problems Name Problem SNOMED Code Status Onset Date Resolution Date Notes Provider Name and Address Organization Details Recorded Time Allergic rhinitis 26261696 Active 2017 Dyan berkowitz [facility] 5 10:20:48 Asthma 869465132 Active 2017 Dyan berkowitz [facility] 5 10:20:31 Coronary arteriosc lerosis 45511800 Active 2017 stent x2 8 Austin Santiago DO [address] [place], [address], [facility] 5 09:30:16 Diverticu litis of sigmoid colon 899825055 Active 2017 Dyan berkowitz [facility] 5 10:20:48 Polyp of colon 89936307 Active 2017 1999,2 003,20 06 Dyan berkowitz [facility] 5 10:20:48 Essential hypertens ion 25568712 Active 2018 Austin Santiago DO [address] [place], [address], [facility] 5 09:30:49 Carpal tunnel syndrome of right wrist 639063174363 108 Active 2018 Dyan berkowitz [facility] 5 10:20:31 Dyspnea 421391165 Active 2021 Dyan berkowitz [facility] 5 10:20:31 Dizziness 520176966 Active 2021 Dyan Portillo null, [facility] 5 10:20:48 Cobalamin deficienc y 011045282 Active 2021 Austin HellerMisael Veramarianna, DO [address] [facility], [place], [address], [facility] 5 09:38:57 Asbestosi s 67209061 Active 2021 Dyan Portillo null, [facility] 5 10:20:48 Right inguinal hernia 787401319 Active 2021 Dyan Portillo null, [facility] 5 10:20:31 Eczema 79480307 Active 2021 Dyan Portillo null, [facility] 5 10:20:31 Pneumonia 326156769 Active 2021 Dyan Portillo null, [facility] 5 10:20:48 Fatigue 19957386 Active 2022 Dyan Portillo null, [facility] 5 10:20:31 Nocturia 098146741 Active 2022 Dyan Portillo null, [facility] 5 10:20:31 Clavicle injury 504329762 Active 2022 Dyan Portillo null, [facility] 5 10:20:48 Acute bronchiti s 47699822 Active 2022 Dyan Portillo null, [facility] 5 10:20:48 Cough 20217986 Active 2023 Dyan Portillo null, [facility] 5 10:20:48 Essential tremor 186192269 Active 2023 Dyan Portillo null, [facility] 5 10:20:31 Hereditar y essential tremor 652632964 Active 2023 Dyan Portillo null, [facility] 5 10:20:31 Unintenti onal weight loss 927009420 Active 2023 Austin Santiago, DO [address] [place], [address], [facility] 5 09:37:21 Pain of left acromiocl avicular joint 557182978 Active 2023 Dyan Portillo null, [facility] 5 10:20:48 COVID-19 258010900 Active 2023 Dyan Portillo null, [facility] 5 10:20:48 Lumbago with sciatica 776480725 Active 2023 Dyan Portillo null, [facility] 10:20:31 Lumbago with sciatica 527129461 Active 2023 Dyan Portillo null, [facility] 10:20:31 Loss of appetite 73352509 Active 2023 Austin Santiago, DO [address] [place], [address], [facility] 5 09:42:28 Unexplain ed weight loss 884383901 Active 2023 Dyan Portillo null, [facility] 5 10:20:48 Atypical chest pain 999639051 Active 2023 Dyan Portillo null, [facility] 5 10:20:31 Acute sinusitis 53522912 Active 2023 Dyan Portillo null, [facility] 5 10:20:48 Carpal tunnel syndrome of left wrist 072246760491 102 Active 2023 Dyan Portillo null, [facility] 5 10:20:31 Lesion of oral mucosa 084006915406 9106 Active 2023 Dyan Portillo null, [facility] 5 10:20:31 Dyspnea on exertion 47429475 Active 2024 Austin Santiago DO [address] [place], [address], [facility] 5 15:37:46 Productiv e cough 34105272 Active 2024 DON ROWE [address] [place], [address], [facility] 5 12:02:22 Exacerbat ion of intermitt ent asthma 948650053 Active 2024 DON ROWE [address] [place] [address], [address], [facility] 5 12:07:39 Moderate chronic obstructi ve pulmonary disease 244573342 Active 2024 Austin Santiago DO [address] [place] [address], [address], [facility] 5 16:11:30 Type 2 diabetes mellitus 17672555 Active 2024 Austin Santiago DO [address] [place] [address], [address], [facility] 5 16:26:06 Problem Notes None recorded. Procedures Surgical History Date Name Laterality Status Provider Name and Address Organization Details Recorded Time 6 Colonoscopy completed Yumiko Cervantes [facility] 12/04/2018 09:48:15 Imaging Results None recorded. Procedure Notes None recorded. Medical Equipment None Reported. Allergies No known drug allergies Medications Name Sig Start Date Stop Date Status Note LastModified by Organization Details LastModified Time losartan 50 mg tablet Take 1 tablet every day by oral route. 02/21 completed Not Available Not Available Not Available prednison e 10 mg tablet 4 tabs x 3 days3 tabs x 3 days 2 tabs x 3 days 1 tabs x 3 days 04/15 completed Not Available Not Available Not Available doxycycli ne hyclate 100 mg capsule TAKE 1 CAPSULE BY MOUTH TWICE DAILY FOR 12 DAYS 10/11 completed Not Available Not Available Not Available azithromy jesu 250 mg tablet TAKE 2 TABLETS (500 MG) BY ORAL ROUTE ONCE DAILY FOR 1 DAY THEN 1 TABLET (250 MG) BY ORAL ROUTE ONCE DAILY FOR 4 DAYS 11/28 completed Not Available Not Available Not Available benzonata te 200 mg capsule TAKE 1 CAPSULE BY MOUTH THREE TIMES DAILY FOR 14 DAYS NEEDED 10/11 completed Not Available Not Available Not Available prednison e 20 mg tablet TAKE 2 TABLETS BY [...] Not Available Not Available aspirin 81 mg tablet,de layed release Take 1 tablet every day by oral route. active Not Available Not Available No t Available glimepiri de 2 mg tablet Take 1 tablet every day by oral route in the morning for 30 days. 2024 active Not Available Not Available Not Avai lable ketorolac 0.5 % eye drops 09/01 completed Not Available Not Available Not Available oxycodone -acetamin ophen 5 mg-325 mg tablet 11/28 completed Not Available Not Available Not Available propranol ol 10 mg tablet TAKE 1 TABLET BY MOUTH TWICE DAILY 11/28 completed Not Available Not Available Not Available tamsulosi n 0.4 mg capsule Take 1 capsule every day by oral route for 30 days. 2024 active Not Available Not Available Not Avai lable Proctozon e-HC 2.5 % topical cream perineal applicato r APPLY A THIN LAYER TO THE AFFECTED AREA(S) BY TOPICAL ROUTE 2 times a day for 10 days 12/18 completed Not Available Not Available Not Available baclofen 10 mg tablet TAKE 1 TABLET BY MOUTH THREE TIMES DAILY FOR 7 DAYS NEEDED 04/15 completed Not Available Not Available Not Available cephalexi n 500 mg capsule Take 1 capsule 3 times a day by oral route for 10 days. 08/22 completed Not Available Not Available Not Available cyanocoba angela (vit B-12) 1,000 mcg/mL injection solution Inject 1 mL every month by subcutan eous route. 2024 active Not Available Not Available Not Avai lable losartan 25 mg tablet Take 1 tablet every day by oral route. 03/16 completed Not Available Not Available Not Available omeprazol e 20 mg capsule,d elayed release TAKE 1 CAPSULE BY MOUTH EVERY DAY 30 MINUTES BEFORE BREAKFAS T 12/17 completed Not Available Not Available Not Available monteluka st 10 mg tablet TAKE 1 TABLET BY MOUTH DAILY 2024 active Not Available Not Available Not Avai lable halobetas ol propionat e 0.05 % topical cream APPLY THIN LAYER TOPICALL Y TO THE AFFECTED AREA DAILY. DO NOT EXCEED 50 GM PER WEEK OR 2 WEEKS DURATION 12/17 completed Not Available Not Available Not Available bisacodyl 5 mg tablet,de layed release TAKE 4 TABLETS BY MOUTH WITH 8 OZ OF WATER ONCE DAILY THE DAY BEFORE PROCEDUR E 02/21 completed Not Available Not Available Not Available diclofena c sodium 50 mg tablet,de layed release TAKE 1 TABLET BY MOUTH TWICE DAILY FOR 10 DAYS 12/17 completed Not Available Not Available Not Available methylpre dnisolone 4 mg tablets in a dose pack FOLLOW PACKAGE DIRECTIO NS 11/28 completed Not Available Not Available Not Available albuterol sulfate HFA 90 mcg/actua tion aerosol inhaler USE 1 TO 2 INHALATI ONS BY MOUTH EVERY 4 TO 6 HOURS NEEDED 2024 active Not Available Not Available Not Avai lable amoxicill in 875 mg-potass ium clavulana te 125 mg tablet TAKE 1 TABLET BY [...] completed Not Available Not Available Not Available rosuvasta tin 40 mg tablet TAKE 1 TABLET BY MOUTH DAILY 2024 active Not Available Not Available Not Avai lable ProAir HFA prn 09/29 completed Not Available Not Available Not Available peg 3350-elec trolytes 236 gram-22.7 4 gram-6.74 gram-5.86 gram solution 02/21 completed Not Available Not Available Not Available fluticaso ne 113 mcg-salme terol 14 mcg/actua tion breath activated powdr INHALE 1 PUFF BY MOUTH TWICE DAILY 11/28 completed Not Available Not Available Not Available Fluzone High-Dose Quad 2020-21 (PF) 240 mcg/0.7 mL IM syringe 12/08 completed Not Available Not Available Not Available Paxlovid 300 mg (150 mg x 2)-100 mg tablets in a dose pack TK 2 NIRMATRE LVIR TS AND 1 RITONAVI R T TOGETHER PO TWICE DAILY 12/17 completed Not Available Not Available Not Available Breyna 160 mcg-4.5 mcg/actua tion HFA aerosol inhaler Inhale 2 puffs twice a day by inhalati on route for 30 days. 2024 active The patient is UTD Not Available Not Available Not Available Vitals None Recorded Social History Question Answer Notes LastModified by Organizat ion Details LastModified Time Tobacco Smoking Status Former Smoker Not Available Counts include 234 beds at the [facility] 04/27/2020 03:36:24 What Was The Date Of Your Most Recent Tobacco Screening? 03/16/2025 [email or web address] Information not available 03/16/2025 Sex: Unknown Functional Status Question Answer Note LastModified by Organization D etails LastModified Time Do you or have you ever used any other forms of tobacco or nicotine? No [email or web address] Information not available 02/09/2023 Mental Status None recorded. Family History Nothing Reported. Medical History No medical history recorded. Immunizations Vaccine Type Date Status Note Provider Nam e and Address Organization Details Recorded Time COVID-19, mRNA, LNP-S, PF, 30 mcg/0.3 mL dose 2 completed Not Available Counts include 234 beds at the [facility] 04/05/2022 08:55:30 Influenza, split virus, quadrivalent, preservative 2 completed Not Available [facility] 04/05/2022 08:55:30 SARS-COV-2 (COVID-19) vaccine, UNSPECIFIED 3 completed Nick berkowitz [place] [facility] 04/27/2023 11:29:45 influenza, unspecified formulation 4 completed Austin Santiago DO [address] [place], [address], [facility] 07/20/2023 16:21:09 Influenza, split virus, quadrivalent, preservative 0 completed Not Available [facility] 04/05/2022 08:55:30 COVID-19, mRNA, LNP-S, PF, 30 mcg/0.3 mL dose 1 completed Not Available [facility] 04/05/2022 08:55:30 COVID-19, mRNA, LNP-S, PF, 30 mcg/0.3 mL dose 1 completed Not Available [facility] 04/05/2022 08:55:30 Past Encounters Encounter ID Performer Location Encounter Start Date Encounter Closed Date Diagnosis/Indication Diagnosis SNOMED-CT Code Diagnosis ICD10 Code Diagnosis IMO Codes Diagnosis Note [id number] Austin Santiago [facility] [address] [facility] [address] 03/16/2025 09:12:20 03/16/2025 10:19:46 Coronary arteriosclerosis 22477226 I25.10 doing ok overall no cp no sob has remained asymptomat ic no change in meds per cardiology his cholestero l shows HDL is 83 and LDL is 52 Essential hypertension 92919352 I10 on losartan for his bp and his bp is quite low will stop the propranolo l BP very well controlled off the atenolol Loss of appetite 2274303 6 R63.0 will hold the rosuvastat in Unintentio nal weight loss 650282200 R63.4 09121297 10-15 lbs chk lab and will order ct abd Cobalamin deficiency 190 489795 E53.8 Need to recheck next visit Active or passive immunization 910936924 Z23 recc pneumovax General ex amination of patient 334896845 Z00.00 65097854 doing great no issues [id number] Austin Santiago [facility] [address] [facility] [address] 04/13/2025 09:33:27 04/13/2025 09:48:33 Cobalamin deficiency 819750996 E53.8 Need to recheck next visit Health Concerns Section Related Observation LastModified by Organization Detai ls LastModified Time None Recorded Concern Status LastModified by Organization Details LastModified Time None Recorded Payers Encounter Date Sequence Insurance Name Policy Number Policy Ramirez Covered Member ID Ramirez Member ID Guarantor Name 04/13/2025 1 [facility] [id number] Erick Stephens [id number] Erick Stephens
--- OUTSIDE RECORDS SUMMARY | 2025-04-15 22:08 | XMS_ITS | Encounter Summary ---
Author Organization [facility] Address [address] [place] [address] Phone Care Team Providers Care Cement Cutter Name Role Phone Austin Quinn Primary Care Provider [phone] Reason for Referral * MRI/CAT Scan - Closed Specialty Diagnoses / Procedures Referred By Angela t Referred To Contact Radiology Diagnoses SOB (shortness of breath) Procedures CT Angio Chest CT Chest CHG CT ANGIO, CHEST, COMBO, INCL IMAGE PROC Karen Tatum PA Phone: tel: fax: Referral ID Status Reason Start Date Expiration Date Visits Re quested Visits Authorized [id number] Closed 11/07/2021 05/06/2022 1 1 Encounter Details Date Type Department Care Team (Latest Contact Info) Description 11/07/2021 Transcribe Orders Virtual Department [address] [place] [address] Karen Tatum PA 6 [facility] [place] [address] [place] [address] SOB (shortness of breath) (Primary Dx) Social History Tobacco Use Types [...] Description 08/10/2025 9:00 AM EST Office Visit [facility] [address] [facility] 3rd Floor, [address] [place] [address] Amadeo Ewing MD [address] [facility], [address] [place] [address] [email or web address] documented as of this encounter Results * CT CHEST PULMONARY ANGIOGRAM (ACUTE) (11/08/2021 2:47 PM EDT) Anatomical Region Laterality Modality Chest, Thoracic Vasculature Comp uted Tomography 11/08/2021 2:13 PM EDT Impressions 11/08/2021 2:46 PM EDT 1.Pulmonary angiogram limitations as above. No findings suspicious for embolism. No acute chest disease. 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 3.Additional findings as above. N.B.: Calcification in the coronary arteries does not in itself have a high positive predictive value for near term cardiac events; however, in the appropriate clinical setting it may be an indication for further evaluation or cardiology consultation depending on the patients cardiac risk factors. Narrative 11/08/2021 2:46 PM EDT COMPARISON: CT chest 06/11/2020. TECHNIQUE: Precontrast views were obtained for planning purposes. High density intravenous contrast is then administered and scanning obtained from lung apex to base. Multiplanar reformats and 3-D vascular reformats generated and study evaluated for specific evidence of pulmonary embolus. Automated exposure control utilized. CT PULMONARY ANGIOGRAM FINDINGS: Lines/tubes/devices: None. Lungs and Airways: No airway masses or bronchiectasis. No pulmonary masses or consolidation. Stable multiple bilateral sub-5 mm pulmonary nodules. No new or suspicious nodules. Pleura: No pleural effusions or pneumothorax. Chronic bilateral calcified pleural plaques most prominent at the right lung base indicative of asbestosis related pleural disease. Heart and mediastinum: Heart is normal in size. No pericardial effusion. Chronic severe coronary artery and mild aortic atherosclerosis. No aortic aneurysm. Chronic small hiatal hernia. No mediastinal or hilar lymphadenopathy. No thyroid nodules identified. Pulmonary Arteries: There is limited evaluation of the distal segmental and subsegmental branches due to motion artifact and limited enhancement. Otherwise adequate enhancement. Main pulmonary artery outflow trunk is normal in size. No findings suspicious for embolism. Soft tissues: Stable minimal bilateral gynecomastia. Abdomen: Limited contrast-enhanced views of the upper abdomen obtained. No acute findings. Incidental chronic benign inferior right hepatic lobe calcified granuloma. Bones: No acute compression fractures. No destructive or suspicious bone lesions. Chronic left clavicle and multiple rib fracture deformities, mild thoracic kyphosis, mild multilevel anterior wedging and bridging osteophytes indicative of DISH. Procedure Note Edu Mistry MD - 11/08/2021 COMPARISON: CT chest 06/11/2020. TECHNIQUE: Precontrast views were obtained for planning purposes. Highdensity intravenous contrast is then administered and scanning obtainedfrom lung apex to base. Multiplanar reformats and 3-D vascular reformatsgenerated and study evaluated for specific evidence of pulmonary embolus.Automated exposure control utilized. CT PULMONARY ANGIOGRAM FINDINGS: Lines/tubes/devices: None. Lungs and Airways: No airway masses or bronchiectasis. No pulmonarymasses or consolidation. Stable multiple bilateral sub-5 mm pulmonarynodules. No new or suspicious nodules. Pleura: No pleural effusions or pneumothorax. Chronic bilateral calcifiedpleural plaques most prominent at the right lung base indicative ofasbestosis related pleural disease. Heart and mediastinum: Heart is normal in size. No pericardial effusion.Chronic severe coronary artery and mild aortic atherosclerosis. No aorticaneurysm. Chronic small hiatal hernia. No mediastinal or hilarlymphadenopathy. No thyroid nodules identified. Pulmonary Arteries: There is limited evaluation of the distal segmentaland subsegmental branches due to motion artifact and limited enhancement.Otherwise adequate enhancement. Main pulmonary artery outflow trunk isnormal in size. No findings suspicious for embolism. Soft tissues: Stable minimal bilateral gynecomastia. Abdomen: Limited contrast-enhanced views of the upper abdomen obtained. Noacute findings. Incidental chronic benign inferior right hepatic lobecalcified granuloma. Bones: No acute compression fractures. No destructive or suspicious bonelesions. Chronic left clavicle and multiple rib fracture deformities, mildthoracic kyphosis, mild multilevel anterior wedging and bridgingosteophytes indicative of DISH. IMPRESSION: 1.Pulmonary angiogram limitations as above. No findings suspicious forembolism. No acute chest disease. 2.Chronic sub-5 mm pulmonary nodules and asbestosis related pleuraldisease. 3.Additional findings as above. N.B.: Calcification in the coronary arteries does not in itself have ahigh positive predictive value for near term cardiac events; however, inthe appropriate clinical setting it may be an indication for furtherevaluation or cardiology consultation depending on the patients cardiacrisk factors. Karen OCHOA IMG CT CHEST Final Resul t * (ABNORMAL) Comprehensive metabolic panel (11/07/2021 12:10 PM EDT) SODIUM 138 133 - 146 mmol/L [facility] POTASSIUM 4.0 3.3 - 5.1 mmol/L [facility] CHLORIDE 106 96 - 108 mmol/L [facility] CO2 25 21 - 35 mmol/L [facility] BUN 13 6 - 19 mg/dL [facility] CREATININE 1.30 0.5 - 1.5 mg/dL [facility] GLUCOSE 110(H) 70 - 99 mg/dL [facility] ALBUMIN 4.6 3.9 - 4.8 g/dL [facility] TOTAL PROTEIN 7.0 6.5 - 8.0 g/dL [facility] CALCIUM 9.4 8.4 - 10.3 mg/dL [facility] ALKALINE PHOSPHATASE 122(H) 39 - 117 U/L [facility] TOTAL BILIRUBIN 0.7 0.0 - 1.2 mg/dL [facility] AST 15 0 - 37 U/L [facility] ALT 16 0 - 40 U/L [facility] GLOBULIN 2.4 1 - 4.8 g/dL [facility] EGFR 57(L) >59 mL/min/1.7 3m2 [facility] Comment:Estimated glomerular filtration rate calculated using the CKD-EPI refit equation. ANION GAP 11 10 - 20 mmol/L [facility] Blood 11/07/2021 12:1 0 PM EDT 11/07/2021 12:12 PM EDT us Karen OCHOA LAB BLOOD ORDERABLES Final Result [facility] [address] [place] [address] documented in this encounter Visit Diagnoses Diagnosis SOB (shortness of breath)- Primary Shortness of breath SOB (shortness of breath) Shortness of breath documented in this encounter Additional Health Concerns Infection Onset Date Last Indicated Resolved Time CoV-Risk 05/26/2022 05/26/2022 06/06/2022 3:51 AM EST documented as of this encounter Care Teams Cement Cutter Relationship Specialty Start Date End Date Austin Quinn DO [email or web address] PCP - General 04/12/17 documented as of this encounter Additional Source Comments The information contained in this document represents components of the legal health record. It is not the complete legal health record.[facility]
--- OUTSIDE RECORDS SUMMARY | 2025-04-15 22:08 | XMS_ITS | Encounter Summary ---
Author Organization [facility] Address [address] [place] [address] Phone Care Team Providers Care Cow Tender Name Role Phone Austin Quinn Primary Care Provider Encounter Details Date Type Department Care Team (Late st Contact Info) Description 10/09/2024 Procedure Pass [facility] [address] [place] [address] Social History Tobacco Use Types Packs/Day Years [...] Description 08/10/2025 9:00 AM EST Office Visit [facility] [address] [place] [address] [address]rd Floor, [address] [place], [place] [id number] Amadeo Ewing MD [address] [place] [address], [address] [place] [address] [email or web address] documented as of this encounter Visit Diagnoses Not on filedocumented in this encounter Care Teams Cow Tender Relationship Specialty Start Date End Date Austin Quinn DO PCP - General 04/12/17 documented as of this encounter Additional Source Comments The information contained in this document represents components of the legal health record. It is not the complete legal health record.[facility]
--- OUTSIDE RECORDS SUMMARY | 2025-04-15 22:08 | XMS_ITS | Encounter Summary ---
Author Organization [facility] Address [address] [place] [address] [place] [address] Phone Care Team Providers Care Attending Urologist Name Role Phone Austin Quinn DO Primary Care Provider [phone] Encounter Details Date Type Department Care Team (Late st Contact Info) Description 03/08/[address] [facility] [address] [place] [address] Austin Quinn DO [address] [facility] [place] [address] [place] [address] [email or web address] Routine general medical examination at a health care facility (Primary Dx) Social History Tobacco Use Types [...] Description 08/10/2025 9:00 AM EST Office Visit [facility] [address] [place] [address] [address]rd Floor, [address] [place] [address] Amadeo Ewing MD [address] [facility], [address] [place] [address] [email or web address] documented as of this encounter Results * PSA (screening) (03/08/2018 10:27 AM EDT) PSA 1.81 0 - 4.00 ng/mL [facility] Blood 03/08/2018 10:2 7 AM EDT 03/08/2018 11:16 AM EDT us Austin Quinn DO LAB BLOOD ORDERABLES Final Resul t [facility] [address] [place] [address] documented in this encounter Visit Diagnoses Diagnosis Routine general medical examination at a health care facility- Primary documented in this encounter Additional Health Concerns Infection Onset Date Last Indicated Resolved Time CoV-Risk 05/26/2022 05/26/2022 06/06/2022 3:51 AM EST documented as of this encounter Care Teams Attending Urologist Relationship Specialty Start Date End Date Austin Quinn DO [email or web address] PCP - General 04/12/17 documented as of this encounter Additional Source Comments The information contained in this document represents components of the legal health record. It is not the complete legal health record.[facility]
--- OUTSIDE RECORDS SUMMARY | 2025-04-15 22:08 | XMS_ITS | Encounter Summary ---
Author Organization [facility] Address [address] [place] [address] Phone Care Team Providers Care Ice Cutter Name Role Phone Austin Quinn DO Primary Care Provider [phone] Encounter Details Date Type Department Care Team (Late st Contact Info) Description 11/08/2021 Procedure Pass [facility] [address] [place] [address] Social History Tobacco Use Types Packs/Day Years [...] Description 08/10/2025 9:00 AM EST Office Visit [facility] [address] [place] [address] [address]rd Floor, [address] [place], [place] [id number] Amadeo Ewing MD 22 [facility], [address] [address] [email or web address] documented as of this encounter Visit Diagnoses Not on filedocumented in this encounter Additional Health Concerns Infection Onset Date Last Indicated Resolved Time CoV-Risk 05/26/2022 05/26/2022 06/06/2022 3:51 AM EST documented as of this encounter Care Teams Ice Cutter Relationship Specialty Start Date End Date Chuymarianna Austin DO [email or web address] PCP - General 04/12/17 documented as of this encounter Additional Source Comments The information contained in this document represents components of the legal health record. It is not the complete legal health record.[facility]
--- OUTSIDE RECORDS SUMMARY | 2025-04-15 22:08 | XMS_ITS | Encounter Summary ---
Author Organization [facility] Address [address] [place] [address] [place] [address] Phone Care Team Providers Care Strip Presser Name Role Phone Austin Quinn Primary Care Provider Encounter Details Date Type Department Care Team (Late st Contact Info) Description 11/07/2021 Ancillary Orders Virtual Department [address] [place] [address] Karen Tatum PA 6 [facility] [place] [address] [place] [address] Dizziness and giddiness Social History Tobacco Use Types Packs/Day Years [...] Description 08/10/2025 9:00 AM EST Office Visit [facility] [address] [place] [address] 3rd Floor, [address] [place] [address] Amadeo Ewing MD 22 [facility], [address] [place] [address] [email or web address] documented as of this encounter Visit Diagnoses Diagnosis Dizziness and giddiness documented in this encounter Additional Health Concerns Infection Onset Date Last Indicated Resolved Time CoV-Risk 05/26/2022 05/26/2022 06/06/2022 3:51 AM EST documented as of this encounter Care Teams Strip Presser Relationship Specialty Start Date End Date Austin Quinn DO [email or web address] PCP - General 04/12/17 documented as of this encounter Additional Source Comments The information contained in this document represents components of the legal health record. It is not the complete legal health record.[facility]
--- OUTSIDE RECORDS SUMMARY | 2025-04-15 22:08 | XMS_ITS | Continuity of Care Document ---
Author Organization [facility], [facility] Address [address] [facility] [place] [address] [place] [address] Assessment No assessment recorded. Plan of Treatment Reminders Order Date Submit Date Provider Last Modified By Organization Details Last Modified Time Details Appointments FOLLOW UP 15 2024 04:00P M DR SANTIAGO Not available Not available Not available FOLLOW UP 15 [address] SANTIAGO Not available Not available Not available FOLLOW UP 15 2024 09:45A [facility] Not available Not available Not available Nurse Visit 15 2024 09:30A M [facility] Not available Not available Not available Nurse Visit 15 2025 09:30A M [facility] Not available Not available Not available Nurse Visit 15 2025 09:30A M [facility] Not available Not available Not available Nurse Visit 15 2025 09:30A M [facility] Not available Not available Not available Lab hemoglobi n A1c, QN, blood 2024 025 [facility], [address] [place] [address], [place], [address], 04/15/2025 16:45:42 Referral None recorded. Procedures None recorded. Surgeries None recorded. Imaging None recorded. Medication Orders glimepiri de 2 mg tablet 2024 025 [id number], [address] [place] [address], [id number], 04/15/2025 16:29:46 tamsulosi n 0.4 mg capsule 2024 025 [id number], [address], [place], [phone], 04/15/2025 16:28:40 Patient TargetsNo targets recorded. Patient Instructions Encounter Date Encounter Id Patient Instructions Last Modified By Organization Details Last Modified Time 04/15/2025 [id number] pulse oximetry* Not available 04/15/2025 16:27:28 learning about type 2 diabetes Not available 04/15/2025 16:27:28 type 2 diabetes: care instructions Not available 04/15/2025 16:27:28 Reason for Referral None Reported. Results Created Date Observation Date Name Description Value Unit Range Abnormal Flag Note LastModifiedBy Organization Detail LastModifiedTime 04/15/2004/15/2025 pulse oxime try* Result 97 Not Available [facility] [address] [facility] [address], [place], [address], 04/13/2025 14:20:37 04/01/2003/27/2025 CT, chest + abdom en + pelvi s, w/ contr ast No observ ation record ed. [facility] [address] [place], [address], 04/02/2025 22:22:28 04/01/2003/27/2025 CT, chest , w/ contr ast No observ ation record ed. [facility] [address] [facility] [address], [place], [address], 04/02/2025 22:25:52 Result Notes None recorded. Problems Name Problem SNOMED Code Status Onset Date Resolution Date Notes Provider Name and Address Organization Details Recorded Time Allergic rhinitis 38041860 Active 2017 Dyan berkowitz [place] [facility] 5 10:20:48 Asthma 499875223 Active 2017 Dyan berkowitz [place] [facility] 5 10:20:31 Coronary arteriosc lerosis 10689410 Active 2017 stent x2 8 Austin Santiago, DO [address] [place] [address], [address], [facility] 5 09:30:16 Diverticu litis of sigmoid colon 200731007 [facility] 10:20:[facility] Polyp of colon 35018303 Active 2017 1999,2 003,20 06 [facility] 5 10:20:48 Essential hypertens ion 87843622 Active 2018 Austin Santiago, DO [address] [place] [address], [address], [facility] 5 09:30:49 Carpal tunnel syndrome of right wrist 950631355971 108 Active 2018 [facility] 10:20:31 Dyspnea 932380458 Active 2021 [facility] 5 10:20:31 Dizziness 183297789 Active 2021 [facility] 10:20:48 Cobalamin deficienc y 350716609 Active 2021 Austin Santiago, DO [address] [place] [address], [address], [facility] 5 09:38:57 Asbestosi s 57625572 Active 2021 [facility] 10:20:48 Right inguinal hernia 022258848 Active 2021 [facility] 5 10:20:31 Eczema 20971882 Active 2021 [facility] 10:20:31 Pneumonia 074216369 Active 2021 Dyan berkowitz, [facility] 5 10:20:48 Fatigue 42740405 Active 2022 Dyan Portillo null, [facility] 5 10:20:31 Nocturia 581874168 Active 2022 Dyan Portillo null, [facility] 5 10:20:31 Clavicle injury 764250990 Active 2022 Dyan Portillo null, [facility] 5 10:20:48 Acute bronchiti s 59149456 Active 2022 Dyan Portillo null, [facility] 5 10:20:48 Cough 62176045 Active 2023 Dyan Portillo null, [facility] 5 10:20:48 Essential tremor 164190599 Active 2023 Dyan Portillo null, [facility] 5 10:20:31 Hereditar y essential tremor 103281753 Active 2023 Dyan Portillo null, [facility] 5 10:20:31 Unintenti onal weight loss 340775791 Active 2023 Austin Santiago, [address], [place], [address], [facility] 5 09:37:21 Pain of left acromiocl avicular joint 626276173 Active 2023 Dyan Portillo null, [facility] 5 10:20:48 COVID-19 873308850 Active 2023 Dyan Portillo null, [facility] 5 10:20:48 Lumbago with sciatica 652406981 Active 2023 Dyna Portillo null, [facility] 5 10:20:31 Lumbago with sciatica 018820687 Active 2023 Dyan Portillo null, [facility] 5 10:20:31 Loss of appetite 91286250 Active 2023 Austin Santiago, DO [address] [place] [address], [address], [facility] 5 09:42:28 Unexplain ed weight loss 637935481 Active 2023 Dyan Portillo null, [facility] 5 10:20:48 Atypical chest pain 737684036 Active 2023 Dyan Portillo null, [facility] 5 10:20:31 Acute sinusitis 05841870 Active 2023 Dyan Portillo null, [facility] 5 10:20:48 Carpal tunnel syndrome of left wrist 528358941411 102 Active 2023 Dyan Portillo null, [facility] 5 10:20:31 Lesion of oral mucosa 929121913338 9106 Active 2023 Dyan Portillo null, [facility] 5 10:20:31 Dyspnea on exertion 41142810 Active 2024 Austin Santiago, DO [address] [place] [address], [address], [facility] 5 15:37:46 Productiv e cough 96376168 Active 2024 DON ROWE [address] [place] [address], [address], [facility] 5 12:02:22 Exacerbat ion of intermitt ent asthma 187976973 Active 2024 DON ROWE [address] [place] [address], [address], [place] [facility] 5 12:07:39 Moderate chronic obstructi ve pulmonary disease 679758589 Active 2024 Austin Santiago, DO [address] [place] [address], [address], [facility] 5 16:11:30 Type 2 diabetes mellitus 26324392 Active 2024 Austin ArronMisael Santiago, DO [address] [facility], [place], [address], [facility] 5 16:26:06 Problem Notes None recorded. Procedures Surgical History Date Name Laterality Status Provider Name and Address Organization Details Recorded Time 6 Colonoscopy completed Yumiko Cervantes [facility] 12/04/2018 09:48:15 Imaging Results None [...] Tobacco Smoking Status [facility]oker Not Available [facility] 04/27/2020 03:36:24 What Was The Date Of Your Most Recent Tobacco Screening? 03/16/2025 [email or web address] Information not available 03/16/2025 Sex: Unknown Functional Status Question Answer Note LastModified by Organization D etails LastModified Time Do you or have you ever used any other forms of tobacco or nicotine? No [email or web address] Information not available 02/09/2023 Mental Status None recorded. Family History Nothing Reported. Medical History No medical history recorded. Immunizations Vaccine Type Date Status Note Provider Nam e and Address Organization Details Recorded Time COVID-19, mRNA, LNP-S, PF, 30 mcg/0.3 mL dose 2 completed Not Available [facility] 04/05/2022 08:55:30 Influenza, split virus, quadrivalent, preservative 2 completed Not Available [facility] 04/05/2022 08:55:30 SARS-COV-2 (COVID-19) vaccine, UNSPECIFIED 3 completed Nick berkowitz [facility] 04/27/2023 11:29:45 influenza, unspecified formulation 4 completed Austin Santiago DO [address] [place] [address], [address] 07/20/2023 16:21:09 Influenza, split virus, quadrivalent, preservative 0 completed Not Available [facility] 04/05/2022 08:55:30 COVID-19, mRNA, LNP-S, PF, 30 mcg/0.3 mL dose 1 completed Not Available [facility] 04/05/2022 08:55:30 COVID-19, mRNA, LNP-S, PF, 30 mcg/0.3 mL dose 1 completed Not Available [facility] 04/05/2022 08:55:30 Past Encounters Encounter ID Performer Location Encounter Start Date Encounter Closed Date Diagnosis/Indication Diagnosis SNOMED-CT Code Diagnosis ICD10 Code Diagnosis IMO Codes Diagnosis Note [id number] Austin Santiago DO [facility] [address] [facility],[place] [address] 03/16/2025 09:12:20 03/16/2025 10:19:46 Coronary arteriosclerosis 98266086 I25.10 doing ok overall no cp no sob has remained asymptomat ic no change in meds per cardiology his cholestero l shows HDL is 83 and LDL is 52 Essential hypertension 60330868 I10 on losartan for his bp and his bp is quite low will stop the propranolo l BP very well controlled off the atenolol Loss of appetite 1462109 6 R63.0 will hold the rosuvastat in Unintentio nal weight loss 645008797 R63.4 41487694 10-15 lbs chk lab and will order ct abd Cobalamin deficiency 190 875509 E53.8 Need to recheck next visit Active or passive immunization 663231462 Z23 recc pneumovax General ex amination of patient 325818070 Z00.00 56996010 doing great no issues [id number] Austin Santiago [facility] [address] [facility],[place] [address] 04/13/2025 09:33:27 04/13/2025 09:48:33 Cobalamin deficiency 205309716 E53.8 Need to recheck next visit [id number] Austin Santiago [facility] [address] [facility],[place] [address] 04/15/2025 16:00:45 04/15/2025 16:29:49 Depression screening 564835651 Z13.31 neg Essential hypertension 77512853 I10 on losartan for his bp and his bp is quite low will stop the propranolo l BP very well controlled off the atenolol Asthma 026184689 J45.20 quiet no issues but did not tolerate the flutic/vivian met Type 2 clay betes mellitus 65626862 E11.9 32202406 Nocturia 318554752 R35.1 believe it is secondary to fluid intake at night Health Concerns Section Related Observation LastModified by Organization Detai ls LastModified Time None Recorded Concern Status LastModified by Organization Details LastModified Time None Recorded Payers Encounter Date Sequence Insurance Name Policy Number Policy Ramirez Covered Member ID Ramirez Member ID Guarantor Name 04/15/2025 [facility] [id number] Erick Stephens [id number] Erick Stephens Notes Date Note Type Note Provider Name and Address Organization Details Recorded Time 5 text/htm l Care Management - HypertensionReported by PatientHPIFor self care, patient reportsnot under emotional stress. For severity, patient reportssymptoms are improvinganddoes not interfere with daily activities. For associated symptoms, patient reportsno dizziness,no lightheadedness,no chest pain,no shortness of breath,no palpitations,no edema,no calf muscle cramps,no blurred vision,no confusion,no headaches, andno fatigue. Care Management - AsthmaReported by PatientHPIFor severity, patient reportsimproving,does not interfere with daily activities,does not disturb sleep, anddoes not cause nighttime awakening. For associated symptoms, patient reportsno fever,no fatigue,no irritability,no cough,normal appetite, andno change in productivity.ROS as noted in the HPI Austin Santiago, [address] [facility], [place], [address], [facility] 04/15/2025 16:29:48
--- OUTSIDE RECORDS SUMMARY | 2025-04-15 22:08 | XMS_ITS | Encounter Summary ---
Author Organization [facility] Address [address] [place] [address] Phone Care Team Providers Care Sld Inclusion Teacher Name Role Phone Austin Quinn Arron CRAWFORD Primary Care Provider [phone] Reason for Referral * Consultation (Elective) - Closed Specialty Diagnoses / Procedures Referred By Angela mace Referred To Contact Pulmonary Disease Karen Tatum PA Phone: tel: fax: [address] [address] Phone: tel: Referral ID Status Reason Start Date Expiration Date Visits Re quested Visits Authorized [id number] Closed 11/10/2021 11/10/2022 1 1 Encounter Details Date Type Department Care Team (Late st Contact Info) Description 11/10/2021 Transcribe Orders [facility] [address] [place] [address] 3rd Floor, [address] [place] [address] Jeffrey Jiménez MD [address] [facility], [address] [address] [email or web address] Social History Tobacco Use Types Packs/Day Years [...] Description 08/10/2025 9:00 AM EST Office Visit [facility] [address] [facility] 3rd Floor, [address] [place] [address] Amadeo Ewing MD [address] [facility], [address] [place] [address] [email or web address] Scheduled Referrals Name Type Priority Associated Diagnoses Order Schedule Ambulatory referral to [facility] Pulmonology Outpatient Referral Routine Ordered: 11/10/2021 documented as of this encounter Visit Diagnoses Not on filedocumented in this encounter Additional Health Concerns Infection Onset Date Last Indicated Resolved Time CoV-Risk 05/26/2022 05/26/2022 06/06/2022 3:51 AM EST documented as of this encounter Care Teams Sld Inclusion Teacher Relationship Specialty Start Date End Date Austin Quinn DO [email or web address] PCP - General 04/12/17 documented as of this encounter Additional Source Comments The information contained in this document represents components of the legal health record. It is not the complete legal health record.[facility]
--- OUTSIDE RECORDS SUMMARY | 2025-04-15 22:08 | XMS_ITS | Encounter Summary ---
Author Organization [facility] Address [address] [facility] [address] [place] [address] Phone Care Team Providers Care Professor Of Biblical Studies Name Role Phone Austin Quinn Primary Care Provider [phone] Encounter Details Date Type Department Care Team (Late st Contact Info) Description 11/07/2021 Procedure Pass [facility], Ct Scan - [address] [address] Social History Tobacco Use Types Packs/Day Years [...] Description 08/10/2025 9:00 AM EST Office Visit [facility] [address] [facility] 3rd Floor, [address] [place] [address] Amadeo Ewing MD 22 [facility], [address] [place] [address] [email or web address] documented as of this encounter Visit Diagnoses Not on filedocumented in this encounter Additional Health Concerns Infection Onset Date Last Indicated Resolved Time CoV-Risk 05/26/2022 05/26/2022 06/06/2022 3:51 AM EST documented as of this encounter Care Teams Professor Of Biblical Studies Relationship Specialty Start Date End Date ChuymariannaAustin DO PCP - General 04/12/17 documented as of this encounter Additional Source Comments The information contained in this document represents components of the legal health record. It is not the complete legal health record.[facility]
--- OUTSIDE RECORDS SUMMARY | 2025-04-15 22:08 | XMS_ITS | Encounter Summary ---
Author Organization [facility] Address [address] [place] [address] [address] [place] [address] Phone Care Team Providers Care Evp Strategy Name Role Phone Austin Quinn Primary Care Provider Encounter Details Date Type Department Care Team (Latest Contact Info) Description 10/24/2018 Ancillary Orders [facility], X-Ray - [address] [address] Rashid Vanegas TODD [address] [place] [address] [id number] Neck pain; Osteoarthritis, unspecified osteoarthritis type, unspecified site Social History Tobacco Use Types Packs/Day Years [...] Description 08/10/2025 9:00 AM EST Office Visit [facility] [address] [place] [address] [address]rd Floor, [address] [place] [address] Amadeo Ewing MD [address] [facility], [address] [place] [address] [email or web address] documented as of this encounter Results * XR CERVICAL SPINE 4-5 VIEWS (10/24/2018 10:32 AM EDT) Anatomical Region Laterality Modality C-spine Radiographic Barbara ging 10/24/2018 10:5 1 AM EDT Impressions 10/24/2018 10:56 AM EDT 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 No acute bony abnormality apparent. POS - [id number] Narrative 10/24/2018 10:56 AM EDT COMPARISON: 04/20/2014 FINDINGS: Frontal, lateral, oblique, and AP open mouth views were obtained. No acute fracture or subluxation. There are chronic and grossly stable degenerative disc changes at C5-6 and C6-7 levels. There is minimal progressive disc space narrowing at C3-4 and C4-5. There is relatively diffuse neural foraminal narrowing which may be related to congenitally short pedicles, with uncovertebral spurring causing more focal bilateral C5-6 encroachment but without definitive progression.. Prevertebral soft tissues are within normal limits. Procedure Note Trina Pennington MD - 10/24/2018 COMPARISON: 04/20/2014 FINDINGS: Frontal, lateral, oblique, and AP open mouth views were obtained. Noacute fracture or subluxation. There are chronic and grossly stabledegenerative disc changes at C5-6 and C6-7 levels. There is minimalprogressive disc space narrowing at C3-4 and C4-5. There is relativelydiffuse neural foraminal narrowing which may be related to congenitallyshort pedicles, with uncovertebral spurring causing more focal bilateralC5-6 encroachment but without definitive progression.. Prevertebral softtissues are within normal limits. IMPRESSION: Mild progression of lower cervical degenerative disc disease since04/20/2014 without gross change in bilateral neural foraminal narrowing.No acute bony abnormality apparent. POS - [id number] Rashid Vanegas DC IMG XR SPINE Final Res ult documented in this encounter Visit Diagnoses Diagnosis Neck pain Cervicalgia Osteoarthritis, unspecified osteoarthritis type, unspecified site Neck pain Cervicalgia Osteoarthritis, unspecified osteoarthritis type, unspecified site documented in this encounter Additional Health Concerns Infection Onset Date Last Indicated Resolved Time CoV-Risk 05/26/2022 05/26/2022 06/06/2022 3:51 AM EST documented as of this encounter Care Teams Evp Strategy Relationship Specialty Start Date End Date Austin Quinn DO [email or web address] PCP - General 04/12/17 documented as of this encounter Additional Source Comments The information contained in this document represents components of the legal health record. It is not the complete legal health record.[facility]
--- OUTSIDE RECORDS SUMMARY | 2025-04-15 22:08 | XMS_ITS | Encounter Summary ---
Author Organization [facility] Address [address] [place] [address] [place] [address] Phone Care Team Providers Care Veterinary Laboratory Technician Name Role Phone Austin Quinn Primary Care Provider [phone] Encounter Details Date Type Department Care Team (Late Contact Info) Description 11/10/2021 Procedure Pass [facility] Admitting Dept Virtual Department [address] [place] [address] Social History Tobacco Use Types Packs/Day Years [...] Description 08/10/2025 9:00 AM EST Office Visit [facility] [address] [place] [address] [address]rd Floor, [address] [place] [address] Amadeo Ewing MD [address] [facility], [address] [place] [address] [email or web address] documented as of this encounter Visit Diagnoses Not on filedocumented in this encounter Additional Health Concerns Infection Onset Date Last Indicated Resolved Time CoV-Risk 05/26/2022 05/26/2022 06/06/2022 3:51 AM EST documented as of this encounter Care Teams Veterinary Laboratory Technician Relationship Specialty Start Date End Date Austin Quinn DO [email or web address] PCP - General 04/12/17 documented as of this encounter Additional Source Comments The information contained in this document represents components of the legal health record. It is not the complete legal health record.[facility]
--- OUTSIDE RECORDS SUMMARY | 2025-04-15 22:08 | XMS_ITS | Encounter Summary ---
Author Organization [facility] Address [address] [place] [address] Phone Care Team Providers Care Physician Extender Name Role Phone Austin Quinn Primary Care Provider [phone] Encounter Details Date Type Department Care Team (Late st Contact Info) Description 04/30/2024 Procedure Pass [facility]oscopy Admitting Dept Virtual Department [address] [place] [address] Social History Tobacco Use Types Packs/Day Years [...] Description 08/10/2025 9:00 AM EST Office Visit [facility] [address] [place] [address] 3rd Floor, [address] [place] [address] Amadeo Ewing MD 22 [facility], [address] [place] [address] [email or web address] documented as of this encounter Visit Diagnoses Not on filedocumented in this encounter Care Teams Physician Extender Relationship Specialty Start Date End Date Austin Quinn DO PCP - General 04/12/17 documented as of this encounter Additional Source Comments The information contained in this document represents components of the legal health record. It is not the complete legal health record.[facility]
--- OUTSIDE RECORDS SUMMARY | 2025-04-15 22:08 | XMS_ITS | Encounter Summary ---
Author Organization [facility] Address [address] [facility] [address] [place] [address] Phone Care Team Providers Care Manager Helpdesk Name Role Phone Austin Quinn Primary Care Provider [phone] Encounter Details Date Type Department Care Team (Late st Contact Info) Description 11/07/2021 Transcribe Orders Virtual Department 30 [place] [address] Karen Tatum PA [address] [facility] [place] [address] [place] [address] Social History Tobacco Use Types Packs/Day Years [...] Description 08/10/2025 9:00 AM EST Office Visit [facility] [address] [place] [address] 3rd Floor, [address] [place] [address] Amadeo Ewing MD [address] [facility], [address] [place] [address] [email or web address] documented as of this encounter Visit Diagnoses Not on filedocumented in this encounter Additional Health Concerns Infection Onset Date Last Indicated Resolved Time CoV-Risk 05/26/2022 05/26/2022 06/06/2022 3:51 AM EST documented as of this encounter Care Teams Manager Helpdesk Relationship Specialty Start Date End Date Austin Quinn DO [email or web address] PCP - General 04/12/17 documented as of this encounter Additional Source Comments The information contained in this document represents components of the legal health record. It is not the complete legal health record.[facility]
--- OUTSIDE RECORDS SUMMARY | 2025-04-15 22:08 | XMS_ITS | Encounter Summary ---
Author Organization [facility] Address [address] [place] [address] Phone Care Team Providers Care Lever Operator Name Role Phone Austin Quinn DO Primary Care Provider Reason for Referral * Outpatient Procedure - Closed Specialty Diagnoses / Procedures Referred By Angela mace Referred To Contact Radiology Diagnoses Other form of dyspnea Procedures Adult Echo TTE Austin Quinn DO [address] [place] [address] Phone: tel: fax: [email or web address] Referral ID Status Reason Start Date Expiration Date Visits Re quested Visits Authorized [id number] Closed 10/09/2024 10/09/2025 1 1 Encounter Details Date Type Department Care Team (Late st Contact Info) Description 10/09/2024 Transcribe Orders Virtual Department 30 [place] [address] Austin Quinn DO [address] [place] [address] [email or web address] Other form of dyspnea (Primary Dx) Social History Tobacco Use Types [...] Description 08/10/2025 9:00 AM EST Office Visit [facility] [address] [place] [address] 3rd Floor, [address] [place] [address] Amadeo Ewing MD [address] [facility], [address] [place] [address] [email or web address] documented as of this encounter Results * TTE COMPREHENSIVE (10/23/2024 9:04 AM EDT) Body Surface Area 1.75 m2 Height 170 cm Weight 65 kg Systolic BP 112 mmHg Diastolic BP 72 mmHg LVOT VTI REST 179.0 mm Left Ventricular Outflow Tract Velocity 0.7 m/s Left Ventricular Outflow Tract Gradient at Rest 2 mmHg Left Ventricle Ea Lateral Wave Speed 7.1 cm/s Left Ventricle Ea Septal Wave Speed 5.7 cm/s Aortic Valve Mean Gradient 3 mmHg Aortic Valve Time Velocity Integral 320.0 mm Aortic Valve Peak Velocity 1.3 m/s Aortic Valve Peak Gradient 7 mmHg Ascending Aorta Diameter 31 <36 mm Inferior Vena Cava Diameter 25 <21 mm Mitral Valve Area Pressure Half Time Eq 2,650.0 mm/s2 Mitral Valve Deceleration Time 236 ms MV stenosis pressure 1/2 time 69 ms Left Ventricle A Wave Speed 79.1 cm/s Left Ventricle E Wave Speed 62.6 cm/s Mitral Valve Mean Gradient 1 mmHg Mitral Valve Peak Gradient 3 mmHg Pulmonary Valve Peak Velocity 0.7 m/s Pulmonary Valve Peak Gradient 2 mmHg Right Ventricle Basal Diameter 37 25 - 41 mm Tricuspid Valve Peak Velocity 2.4 m/s MV E/E' Tissue Velocity Lateral 8.82 MV E/A ratio 0.8 MV E/e' septal 10.98 Left Ventricle E/e' Average 9.9 Aortic Valve Prosthetic Peak Gradient 7 mmHg Ascending Aorta Index 18 mm/m2 Asc Aorta CSA Index by Height 4.44 cm2/m Mitral Valve Prosthetic Peak Gradient 3 mmHg Mitral Valve Prosthetic Mean Gradient 1 mmHg MV valve area p 1/2 method 3.2 cm2 Mitral Valve Area DT Method 20.0 cm2 Right Ventricle to Right Atrium Pressure Gradient 23 mmHg Right Ventricle Peak Systolic Pressure (Assuming RAP 10) 33 mmHg MGB CV ECHO TV RVSP (ASSUMING RAP OF 5) 28 mmHg RVSP (Exclusive of RAP) 23 mmHg Pulmonic Valve Prosthetic Peak Gradient 2 mmHg Ascending Aorta Index 18 mm Ascending Aorta Diameter 18 mm AO ASC DIAM BSA INDEX 17.71 Echo E/Ea 10.98 Aortic Valve Prosthetic Mean Gradient 3 mmHg Ejection Fraction 60 50 - 75 % Right Ventricle Peak Systolic Pressure 31 mmHg Right Atrium Pressure Estimated 8 mmHg Left Atrial Volume Index 21 16 - 34 mL/m2 GLS 18.6 % Right Ventricle TAPSE 20 >=17 mm Right Ventricle Pulse Doppler S Wave 11.4 >=9.5 cm/s Left Atrial Volume 37 mL Left Atrial Volume Index by Height 22 mL/m Right Atrium Area 22 cm2 Right Atrium Area index 13 cm2/m2 Anatomical Region Laterality Modality Heart Ultrasound Narrative 10/23/2024 9:38 AM EDT Images from the original result were not included. 1. Image quality is good. The estimated ejection fraction is 60 to 65%. Diastolic function is normal left ventricular thickness is normal and regional wall motion is also normal. 2. Normal RV size and function. 3. Trileaflet aortic valve there is no evidence of aortic stenosis, ascending aortic root is normal size. 4. Trace mitral and tricuspid insufficiency, the PA pressure is normal. 5. Normal pericardium and when compared to the prior echo, no change. Left Ventricle The left ventricle is normal in size. There is normal left ventricular systolic function. The LV ejection fraction is 60% (calculated via biplane measurement). Average global longitudinal strain (GLS) is -18.6%, as measured on [employer] software platform. LV diastolic function appears within normal limits for age. The E/A ratio is 0.8. The e' septal wave velocity is 5.7 cm/s. The e' lateral wave velocity is 7.1 cm/s. The average E/e' ratio is 9.9. Right Ventricle The right ventricle is normal in size. There is normal right ventricular systolic function. TAPSE is 20 mm. RV S' wave is 11.4 cm/s. Left Atrium The left atrium is normal in size. The left atrial volume is 37 mL. The left atrial volume index by BSA is 21 mL/m2. There are normal flow patterns in the pulmonary vein. Right Atrium The right atrium is dilated. The IVC is dilated with normal inspiratory collapse. Mitral Valve There is mild mitral valve thickening. There is no mitral stenosis. There is trace mitral regurgitation. Tricuspid Valve The tricuspid valve appears normal. There is no tricuspid stenosis. There is trace tricuspid regurgitation. The RV systolic pressure was calculated at 31 mmHg (using TR peak velocity of 2.4 m/s and assuming an RA pressure of 8 mmHg). Aortic Valve There is leaflet thickening. There is no aortic stenosis. There is no aortic regurgitation. The visualized portions of the thoracic aorta appear normal in size. The ascending aortic diameter is 31 mm. Pulmonic Valve The pulmonic valve is suboptimally visualized. There is no obvious structural abnormality. There is no pulmonic stenosis. Pericardium There is no pericardial effusion. General Findings The image quality was fair (3). Poor parasternal window. Strain performed. Technique(s) used in the evaluation: Color flow Doppler and Spectral Doppler. Consent was obtained from: patient The predominant rhythm during the study was sinus bradycardia. Patient tolerated the procedure well. No complications observed during the procedure. Comparison Findings Compared to prior TTE on 12/15/2021, IAS/IVS The interatrial septum appears normal. us Austin Quinn DO CV ECHO ORDERABLES Final Result documented in this encounter Visit Diagnoses Diagnosis Other form of dyspnea- Primary Other form of dyspnea documented in this encounter Care Teams Lever Operator Relationship Specialty Start Date End Date Austin Quinn DO [email or web address] PCP - General 04/12/17 documented as of this encounter Additional Source Comments The information contained in this document represents components of the legal health record. It is not the complete legal health record.[facility]
--- OUTSIDE RECORDS SUMMARY | 2025-04-15 22:08 | XMS_ITS | Encounter Summary ---
Author Organization [facility] Address [address] [place] [address] Phone Care Team Providers Care Business Unit Director Name Role Phone Austin Quinn DO Primary Care Provider [phone] Reason for Referral * MRI/CAT Scan - Closed Specialty Diagnoses / Procedures Referred By Angela mace Referred To Contact Radiology Diagnoses Abdominal aortic aneurysm without rupture Procedures CT Angio Abdomen/Pelvis Austin Quinn DO Phone: tel: fax: mailto:[email or web address] Referral ID Status Reason Start Date Expiration Date Visits Re quested Visits Authorized [id number] Closed 07/03/2018 08/01/2018 1 1 Encounter Details Date Type Department Care Team (Late st Contact Info) Description 07/03/2018 Ancillary Orders Virtual Department 30 [place] [address] Austin Quinn DO [address] [facility] [place] [address] [place] [address] [email or web address] Abdominal aortic aneurysm without rupture Social History Tobacco Use Types [...] Description 08/10/2025 9:00 AM EST Office Visit [facility] [address] [facility] 3rd Floor, [address] [place] [address] Amadeo Ewing MD [address] [facility], [address] [place] [address] [email or web address] documented as of this encounter Results * CT ANGIO ABDOMEN/PELVIS WITH AND WITHOUT CONTRAST (07/03/2018 11:54 AM EST) Anatomical Region Laterality Modality Abdomen, Abdominal Vasculature C omputed Tomography 07/03/2018 12:1 9 PM EST Impressions 07/03/2018 12:33 PM EST 1. No evidence of abdominal aortic dissection or AAA. 2. Additional findings as outlined above. TOTAL CTDIvol: 114 mGy POS - [id number] Narrative 07/03/2018 12:33 PM EST COMPARISON: Abdominal aortic screening ultrasound same day. CT abdomen pelvis 10/26/2011. TECHNIQUE: Pre-contrast views were obtained in preparation for CT angiogram. Rapid intravenous contrast administration was then performed with multi detector CT obtained from lung bases to the symphysis pubis. Multiplanar, 3-D angiographic reformats are evaluated on the workstation. Sagittal and coronal reformats were also generated. Automated exposure control utilized. CTA ABDOMEN AND PELVIS FINDINGS: Lung bases/heart: Imaged heart is normal. Stable bibasilar scarring and right lung base calcified pleural plaques. Spleen: Normal. Liver: Normal. Gallbladder/biliary tree: Normal. Pancreas: Normal. Adrenal glands: Normal. Vasculature: Stable mild to moderate diffuse arterial calcified plaque. Aorta is normal in size. No AAA or dissection. Single patent bilateral renal arteries. Abdominal aortic visceral branches are patent. Genitourinary: Stable incidental punctate right lower renal pole cortical calcification. Kidneys are otherwise normal. Bladder is nondistended. Stable mild prostatomegaly. Gastrointestinal tract: Stable small hiatal hernia. Mild diffuse colonic diverticulosis. Small bowel is normal. Peritoneum/retroperitoneum: No lymphadenopathy, ascites or fluid collections. Musculoskeletal: Stable small right inguinal hernia. The previous left inguinal hernia is no longer identified. Stable diffuse spondylosis with multilevel endplate spurring, moderate L3-4 degenerative disease with endplate Schmorl's nodes, multilevel lumbar spine facet arthropathy and congenitally shortened lumbar spine pedicles. No compression deformities or destructive bone lesions. Procedure Note Laurent Null MD - 07/03/2018 COMPARISON: Abdominal aortic screening ultrasound same day. CT abdomenpelvis 10/26/2011. TECHNIQUE: Pre-contrast views were obtained in preparation for CTangiogram. Rapid intravenous contrast administration was then performedwith multi detector CT obtained from lung bases to the symphysis pubis.Multiplanar, 3-D angiographic reformats are evaluated on the workstation.Sagittal and coronal reformats were also generated. Automated exposurecontrol utilized. CTA ABDOMEN AND PELVIS FINDINGS: Lung bases/heart: Imaged heart is normal. Stable bibasilar scarring andright lung base calcified pleural plaques. Spleen: Normal. Liver: Normal. Gallbladder/biliary tree: Normal. Pancreas: Normal. Adrenal glands: Normal. Vasculature: Stable mild to moderate diffuse arterial calcified plaque.Aorta is normal in size. No AAA or dissection. Single patent bilateralrenal arteries. Abdominal aortic visceral branches are patent. Genitourinary: Stable incidental punctate right lower renal pole corticalcalcification. Kidneys are otherwise normal. Bladder is nondistended.Stable mild prostatomegaly. Gastrointestinal tract: Stable small hiatal hernia. Mild diffuse colonicdiverticulosis. Small bowel is normal. Peritoneum/retroperitoneum: No lymphadenopathy, ascites or fluidcollections. Musculoskeletal: Stable small right inguinal hernia. The previous leftinguinal hernia is no longer identified. Stable diffuse spondylosis withmultilevel endplate spurring, moderate L3-4 degenerative disease withendplate Schmorl's nodes, multilevel lumbar spine facet arthropathy andcongenitally shortened lumbar spine pedicles. No compression deformitiesor destructive bone lesions. IMPRESSION: 1. No evidence of abdominal aortic dissection or AAA. 2. Additional findings as outlined above. TOTAL CTDIvol: 114 mGy POS - [id number] us Austin Quinn IMG CT ABD/PELVIS Final Result documented in this encounter Visit Diagnoses Diagnosis Abdominal aortic aneurysm without rupture Abdominal aneurysm without mention of rupture Abdominal aortic aneurysm without rupture Abdominal aneurysm without mention of rupture documented in this encounter Additional Health Concerns Infection Onset Date Last Indicated Resolved Time CoV-Risk 05/26/2022 05/26/2022 06/06/2022 3:51 AM EST documented as of this encounter Care Teams Business Unit Director Relationship Specialty Start Date End Date [email or web address] PCP - General 04/12/17 documented as of this encounter Additional Source Comments The information contained in this document represents components of the legal health record. It is not the complete legal health record.[facility]
--- OUTSIDE RECORDS SUMMARY | 2025-04-15 22:09 | XMS_ITS | Encounter Summary ---
Author Organization [facility] Address [address] [facility] [address] [place] [address] Phone Care Team Providers Care Plant Production Worker Name Role Phone ChuyAustin cabral Arron CRAWFORD Primary Care Provider [phone] Encounter Details Date Type Department Care Team (Latest Contact Info) Description 09/06/2017 Ancillary Orders Non-Invasive Cardiology 30 [place] [address] Austin Black MD [address] [address] [email or web address] Preop cardiovascular exam Social History Tobacco Use Types Packs/Day Years Used Date Smoking Tobacco: Former Smokeless Tobacco: Former Sex and Gender Information Value Date Recorded Sex Assigned at Male 09/12/2017 3:40 PM EDT Legal Sex Male 10:07 PM EDT Gender Identity Male 09/12/2017 3:40 PM EDT Sexual Orientation Straight 09/12/2017 3: 40 PM EDT documented as of this encounter Plan of Treatment Upcoming Encounters Date Type Department Care Team (Late st Contact Info) Description 08/10/2025 9:00 AM EST Office Visit [facility] [address] [facility] 3rd Floor, [address] [place] [address] Amadeo Ewing MD 22 [facility], [address] [place] [id number] [email or web address] documented as of this encounter Results * NC Stress Result for Nuclear Stress Test (NW) (09/06/2017 10:24 AM EDT) Max BP Systolic 160 mmHg [facility] Max BP Diastolic 80 mmHg [facility] Max HR 136 BPM [facility] Resting HR 60 BPM [facility] Resting BP Systolic 118 mmHg [facility] Resting BP Diastolic 68 mmHg [facility] Peak METS 4.9 METS [facility] Peak HR 129 BPM [facility] Anatomical Region Laterality Modality Heart Other 09/06/2017 9:17 AM EDT 09/06/2017 10:23 AM EDT Narrative 09/06/2017 12:38 PM EDT Stress Test Result The heart rate changed from 60 bpm at rest to 129 bpm at peak stress. The blood pressure changed from 118/68 mmHg at rest. The patient's functional capacity is 4.9 METS. Exercise Stress Test Report: Reason for termination: fatigue Summary: Resting ECG: SB HR 58 with RSR' AVR and V1 with NSSTW Functional capacity: High Heart rate response to exercise:Appropriate Blood pressure response to exercise:Normal resting-appropriate response Chest pain:None Arrhythmias: Isolated pVC's ST-T changes: See below Overall impression: Abnormal exercise stress test Conclusion: Erick Stephens exercised for 10:00 Minutes on a standard Deon protocol achieving 90% MPHR (136 BPM) and 11.10 METS. Test terminated due to fatigue Summary: 1. EKG: T wave inversions noted in inferolateral leads in early recovery and back to baseline end of exam 2. Symptoms: 3/10 non radiating midsternal chest pain at peak exercise 3. Exercise physiology: Normal heart rate and BP response to exercise. Max HR 136 with normal HR recovery. Max BP 160/80 from baseline BP of 118/68 . 02 sat 96% and stable throughout the procedure. High functional capacity for age noted 4. Arrhythmia:Isolated PVC's and PAC's Conclusion: Abnormal ETT. Brief episode of 3/10 non radiating midsternal chest pain at peak exercise that spontaneously resolved with rest. Vital signs at baseline at time of discharge from the lab. Nuclear images to follow. EKG reviewed with Dr. Sofia Andrews MOTOR WINDER us Marilyn Kuo [employer]OR [employer]ER CV NM CARDIAC Final Result documented in this encounter Visit Diagnoses Diagnosis Preop cardiovascular exam Pre-operative cardiovascular examination Preop cardiovascular exam Pre-operative cardiovascular examination documented in this encounter Additional Health Concerns Infection Onset Date Last Indicated Resolved Time CoV-Risk 05/26/2022 05/26/2022 06/06/2022 3:51 AM EST documented as of this encounter Care Teams Plant Production Worker Relationship Specialty Start Date End Date Austin Quinn DO [email or web address] PCP - General 04/12/17 documented as of this encounter Additional Source Comments The information contained in this document represents components of the legal health record. It is not the complete legal health record.[facility]
--- OUTSIDE RECORDS SUMMARY | 2025-04-15 22:09 | XMS_ITS | Encounter Summary ---
Author Organization [facility] Address [address] [place] [address] Phone Care Team Providers Care Sonoscope Operator Name Role Phone Austin Quinn DO Primary Care Provider [phone] Encounter Details Date Type Department Care Team (Late st Contact Info) Description 06/14/2018 Ancillary Orders Virtual Department 30 [place] [address] Austin Quinn DO [address] [facility] [address] [place] [address] [email or web address] Encounter for screening for cardiovascular disorders Social History Tobacco Use Types Packs/Day Years Used Date Smoking Tobacco: Former Smokeless Tobacco: Former Alcohol Use Standard Drinks/Week Comments Yes 0 (1 standard drink = 0.6 oz pur e alcohol) Sex and Gender Information Value Date Recorded Sex Assigned at Male 09/12/2017 3:40 PM EDT Legal Sex Male 10:07 PM EDT Gender Identity Male 09/12/2017 3:40 PM EDT Sexual Orientation Straight 09/12/2017 3 :40 PM EDT documented as of this encounter Plan of Treatment Upcoming Encounters Date Type Department Care Team (Late st Contact Info) Description 08/10/2025 9:00 AM EST Office Visit [facility] [address] [place] [address] 3rd Floor, [address] [place], [place] [phone] Amadeo Ewing MD 22 [facility], [address] [place] [id number] [email or web address] documented as of this encounter Results * US Abdominal Aortic Screening (07/03/2018 9:05 AM EST) Anatomical Region Laterality Modality Abdomen Ultrasound 07/03/2018 9:01 AM EST Impressions 07/03/2018 9:11 AM EST 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 No AAA. These potential critical results were reported to Dr. Quinn at the time of dictation with a read-back occurring. Patient was transported to CT department for a CTA of abdomen and pelvis to confirm or refute these findings. POS [id number] Narrative 07/03/2018 9:11 AM EST COMPARISON: CT abdomen pelvis 10/26/2011. ABDOMINAL AORTA ULTRASOUND FINDINGS: No evidence of an abdominal aortic aneurysm. There is ectasia of the distal aorta measuring up to 2.9 cm. There is intraluminal linear echogenic dissection flap versus calcified thrombus. The proximal common iliac arteries are nonaneurysmal. Procedure Note Laurent Null MD - 07/03/2018 COMPARISON: CT abdomen pelvis 10/26/2011. ABDOMINAL AORTA ULTRASOUND FINDINGS: No evidence of an abdominal aortic aneurysm. There is ectasia of thedistal aorta measuring up to 2.9 cm. There is intraluminal linearechogenic dissection flap versus calcified thrombus. The proximal commoniliac arteries are nonaneurysmal. 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 No AAA. These potential critical results were reported to Dr. Quinn at the time ofdictation with a read-back occurring. Patient was transported to CTdepartment for a CTA of abdomen and pelvis to confirm or refute thesefindings. POS [id number] us Austin Quinn DO IMG US ABDOMEN Final Result documented in this encounter Visit Diagnoses Diagnosis Encounter for screening for cardiovascular disorders Encounter for screening for cardiovascular disorders documented in this encounter Additional Health Concerns Infection Onset Date Last Indicated Resolved Time CoV-Risk 05/26/2022 05/26/2022 06/06/2022 3:51 AM EST documented as of this encounter Care Teams Sonoscope Operator Relationship Specialty Start Date End Date Austin Quinn DO [email or web address] PCP - General 04/12/17 documented as of this encounter Additional Source Comments The information contained in this document represents components of the legal health record. It is not the complete legal health record.[facility]
--- OUTSIDE RECORDS SUMMARY | 2025-04-15 22:09 | XMS_ITS | Encounter Summary ---
Author Organization [facility] Address [address] [place] [address] Phone Care Team Providers Care Core Carrier Name Role Phone Austin Quinn Primary Care Provider [phone] Encounter Details Date Type Department Care Team (Late st Contact Info) Description 03/17/2025 Procedure Pass [facility], Ct Scan - [address] [address] Social History Tobacco Use Types Packs/Day Years [...] Description 08/10/2025 9:00 AM EST Office Visit [facility] [address] [place] [address] 3rd Floor, [address] [place] [address] Amadeo Ewing MD 22 [facility], [address] [address] [email or web address] documented as of this encounter Visit Diagnoses Not on filedocumented in this encounter Care Teams Core Carrier Relationship Specialty Start Date End Date Austin Quinn DO PCP - General 04/12/17 documented as of this encounter Additional Source Comments The information contained in this document represents components of the legal health record. It is not the complete legal health record.[facility]
--- OUTSIDE RECORDS SUMMARY | 2025-04-15 22:09 | XMS_ITS | Encounter Summary ---
Author Organization [facility] Address [address] [facility] [address] [place] [phone] Phone Care Team Providers Care Principal Network Engineer Name Role Phone Austin Quinn DO Primary Care Provider [phone] Encounter Details Date Type Department Care Team (Late st Contact Info) Description 08/30/2017 Ancillary Orders [facility] External Provider Virtual Department [address] [place] [address] Austin Quinn DO [address] [facility] [address] [place] [address] [email or web address] Pre-op exam; Chest pain, unspecified type; History of heart artery stent Social History Tobacco Use Types Packs/Day Years [...] Description 08/10/2025 9:00 AM EST Office Visit [facility] [address] [place] [address] [address], [address] [place] [address] Amadeo Ewing MD [address] [facility], [address] [place] [address] [phone] [email or web address] documented as of this encounter Results * Stress Test Exercise (09/05/2017 10:48 AM EDT) Max BP Systolic 158 mmHg [facility] Max BP Diastolic 62 mmHg [facility] Max HR 130 BPM [facility] Resting HR 55 BPM [facility] Resting BP Systolic 100 mmHg [facility] Resting BP Diastolic 68 mmHg [facility] Peak METS 13.4 METS [facility] Peak HR 127 BPM [facility] Anatomical Region Laterality Modality Heart Other 09/05/2017 10:2 2 AM EDT 09/05/2017 10:59 AM EDT Narrative 09/05/2017 1:26 PM EDT Stress Test Result The heart rate changed from 55 bpm at rest to 127 bpm at peak stress. The blood pressure changed from 100/68 mmHg at rest. The patient's functional capacity is 13.4 METS. Patient exercised for 10:40 minutes on a Deon protocol achieving 13.4 METs. Test terminated due to fatigue. Maximum heart rate achieved was 127 bpm which represents 85% of the MPHR. 1. Baseline EKG showed normal sinus bradycardia. No ischemic EKG changes with exercise. In recovery, there were 0.5-[address] depressions in the anterolateral leads V4 through V6. 2. No chest pain. 3. Normal blood pressure response to exercise. Normal functional capacity for age. 4. Occasional PVCs and PACs noted. Conclusion: Abnormal stress test with EKG changes in recovery that are suggestive of ischemia. Recommend repeating stress test with imaging. I have communicated these results to the PCP Dr. Quinn. The PCP is requesting that the order for the nuclear stress test come from Dr. Black and me. I have ordered the stress test. Testing has been scheduled for tomorrow at 8 AM. The patient is scheduled to have surgery on Sunday. EKGs were reviewed with Dr. Black. Kiesha Emerson NP us Austin Quinn DO CV STRESS ORDERABLES Final Resul t documented in this encounter Visit Diagnoses Diagnosis Pre-op exam Chest pain, unspecified type History of heart artery stent Pre-op exam Chest pain, unspecified type History of heart artery stent documented in this encounter Additional Health Concerns Infection Onset Date Last Indicated Resolved Time CoV-Risk 05/26/2022 05/26/2022 06/06/2022 3:51 AM EST documented as of this encounter Care Teams Principal Network Engineer Relationship Specialty Start Date End Date Chuymarianna Austin DO [email or web address] PCP - General 04/12/17 documented as of this encounter Additional Source Comments The information contained in this document represents components of the legal health record. It is not the complete legal health record.[facility]
--- OUTSIDE RECORDS SUMMARY | 2025-04-15 22:09 | XMS_ITS | Data Portability ---
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) MDM MODERATE MUST MEET 2 OUT OF [...] EACH ELEMENT THAT IS COVERED Not available 03/16/2025 09:37:09 Plan of Treatment Reminders Order Date Submit [...] available Nurse Visit 15 2025 09:30A M [facility] Not available Not available Not available Nurse Visit 15 2025 09:30A Clementine [facility] Not available Not available Not available Nurse Visit 15 2025 09:30A Clementine [facility] Not available Not available Not available Lab hemoglobi n A1c, QN, blood 2024 025 [facility], [address] [place] [address], [place], [address], 04/15/2025 16:45:42 CBC w/ auto diff 2024 025 [facility], [place], [address], 03/16/2025 09:42:05 CMP, serum or plasma 2024 025 [facility], [place], [address], 03/16/2025 09:42:05 PSA, serum or plasma 2024 025 [facility], [place], [address], 03/16/2025 09:42:05 TSH, serum or plasma 2024 025 [facility], [place], [address], 03/16/2025 09:42:05 Referral None recorded. Procedures None recorded. Surgeries None recorded. Imaging CT, chest + abdomen + pelvis, w/ contrast - ApprovedP rocedure codes: 79059 Call Reference #: [id number] #: [id number] Resolutio n: Completed on 5 at 10:27 am. Approval #[id number], effective 5 - 05/16/25 ApprovedP rocedure codes: 31720 Call Reference #: [id number] #: [id number] Resolutio n: Completed on 5 at 10:27 am. Approval #[id number], effective 5 - 5. 2024 025 [email or web address] 10 [facility], [address] [facility], [place], [address], 03/18/2025 09:41:46 Medication Orders glimepiri de 2 mg tablet 2024 025 [facility][id number], [address] [place], [place], [id number], 04/15/2025 16:29:46 tamsulosi n 0.4 mg capsule 2024 025 [facility]89877, [address] [place], [place], [id number], 04/15/2025 16:28:40 cyanocoba angela (vit B-12) 1,000 mcg/mL injection solution [email or web address] [facility] #27965, [address] [place], [place], [id number], 04/13/2025 15:03:01 cyanocoba angela (vit B-12) 1,000 mcg/mL injection solution 2024 025 [email or web address] Not available 03/16/2025 10:16:31 cyanocoba angela (vit B-12) 1,000 mcg/mL injection solution 2024 025 [facility]29672, [address] [place], [place], [id number], 03/11/2025 10:35:13 cyanocoba angela (vit B-12) 1,000 mcg/mL injection solution [address] [facility]87425, [address] [place], [place], [id number], 02/02/2025 10:56:33 Patient TargetsNo targets recorded. Patient Instructions Encounter Date Encounter Id Patient Instructions Last Modified By Organization Details Last Modified Time 03/16/2025 [id number] anorexia: care instructions Not available 03/16/2025 09:40:46 high blood pressure: care instructions Not available 03/16/2025 09:40:46 learning about high blood pressure Not available 03/16/2025 09:40:46 04/15/2025 [id number] pulse oximetry* Not available 04/15/2025 16:27:28 learning about type 2 diabetes Not available 04/15/2025 16:27:28 type 2 diabetes: care instructions Not available 04/15/2025 16:27:28 Reason for Referral None Reported. Results Created Date Observation Date Name Description Value Unit Range Abnormal Flag Note LastModifiedBy Organization Detail LastModifiedTime 04/15/2004/15/2025 pulse oxime try* Result 97 Not Available [facility] [address] [facility] [address], [place], [address], 04/13/2025 14:20:37 04/01/2003/27/2025 CT, chest + abdom en + pelvi s, w/ contr ast No observ ation record ed. [facility] [address] [facility], [place], [address], 04/02/2025 22:22:28 04/01/2003/27/2025 CT, chest , w/ contr ast No observ ation record ed. [facility] [address] [facility] [address], [place], [address], 04/02/2025 22:25:52 Result Notes None recorded. Problems Name Problem SNOMED Code Status Onset Date Resolution Date Notes Provider Name and Address Organization Details Recorded Time Allergic rhinitis 45436958 Active 2017 [facility] 10:20:48 Asthma 214331176 Active 2017 ROBERT [facility] 10:20:31 Coronary arteriosc lerosis 16254202 Active 2017 stent x2 11/200 8 Austin A. Bigda, DO [address] [place], [address], [facility] 5 09:30:16 Diverticu litis of sigmoid colon 432394914 Active 2017 Dyananitha Portillo [facility] 5 10:20:48 Polyp of colon 85269203 Active 2017 1999,2 003,20 06 [facility] [place] [facility] 10:20:48 Essential hypertens ion 76255518 Active 2018 Austin Santiago, DO [address] [place] [address], [address], [facility] 5 09:30:49 Carpal tunnel syndrome of right wrist 018866270326 108 Active 2018 Dyan Portillo [facility] 5 10:20:31 Dyspnea 146220353 Active 2021 [facility] [place] 5 10:20:31 Dizziness 239248128 Active 2021 [facility] [place] 5 10:20:48 Cobalamin deficienc y 344349235 Active 2021 Austin Santiago, DO [address] [place] [address], [address], [facility] 5 09:38:57 Asbestosi s 91730115 Active 2021 [facility] [place] 5 10:20:48 Right inguinal hernia 228167180 Active 2021 [facility] [place] 5 10:20:31 Eczema 50056326 Active 2021 [facility] [place] 5 10:20:31 Pneumonia 694652853 Active 2021 [facility] [place] 5 10:20:48 Fatigue 70418485 Active 2022 Dyan Portillo null, [facility] 5 10:20:31 Nocturia 928234825 Active 2022 Dyananitha Portillo null, [facility] 5 10:20:31 Clavicle injury 487940010 Active 2022 Dyan Portillo null, [facility] 5 10:20:48 Acute bronchiti s 79879407 Active 2022 Dyan Portillo null, [facility] 5 10:20:48 Cough 80210402 Active 2023 Dyananitha Portillo null, [facility] 5 10:20:48 Essential tremor 881277484 Active 2023 Dyananitha Portillo null, [facility] 5 10:20:31 Hereditar y essential tremor 846875755 Active 2023 Dyananitha Portillo null, [facility] 5 10:20:31 Unintenti onal weight loss 912504144 Active 2023 Austin Santiago, DO [address] [place] [address], [address], [facility] 5 09:37:21 Pain of left acromiocl avicular joint 895191976 Active 2023 Dyan Portillo null, [facility] 5 10:20:48 COVID-19 544279436 Active 2023 Dyan Portillo null, [facility] 5 10:20:48 Lumbago with sciatica 426367356 Active 2023 Dyan Portillo null, [facility] 5 10:20:31 Lumbago with sciatica 226782380 Active 2023 Dyananitha Portillo null, [facility] 5 10:20:31 Loss of appetite 47315203 Active 2023 Austin Santiago, DO [address] [place] [address], [address], [place] [facility] 5 09:42:28 Unexplain ed weight loss 408892452 Active 2023 Dyan Portillo null, [facility] 5 10:20:48 Atypical chest pain 301342844 Active 2023 Dyan Portillo null, [facility] 5 10:20:31 Acute sinusitis 05405375 Active 2023 Dyan Portillo null, [facility] 5 10:20:48 Carpal tunnel syndrome of left wrist 432180886836 102 Active 2023 Dyan Portillo null, [facility] 5 10:20:31 Lesion of oral mucosa 939471238970 9106 Active 2023 Dyan Portillo null, [facility] 5 10:20:31 Dyspnea on exertion 24019821 Active 2024 Austin Santiago, [address] [place] [address], [address], [facility] 5 15:37:46 Productiv e cough 70684512 Active 2024 DON ROWE [address] [place] [address], [address], [facility] 5 12:02:22 Exacerbat ion of intermitt ent asthma 106053731 Active 2024 DON ROWE [address] [place] [address], [address], [place] [facility] 5 12:07:39 Moderate chronic obstructi ve pulmonary disease 627152241 Active 2024 Austin Santiago DO [address] [place] [address], [address], [facility] 5 16:11:30 Type 2 diabetes mellitus 80628039 Active 2024 Austin Santiago DO [address] [place] [address], [address], [facility] 16:26:06 Problem Notes None recorded. Procedures Surgical History Date Name Laterality Status Provider Name and Address Organization Details Recorded Time 6 Colonoscopy completed Yumiko Cervantes [facility] 12/04/2018 09:48:15 Imaging Results [...] Not Available Not Available Not Available azithromy jseu 250 mg tablet TAKE 2 TABLETS (500 [...] Not Available Not Available Fluzone High-Dose Quad 2020- (PF) 240 mcg/0.7 [...] Not Available Not Available Vitals Date Recorded Oxygen saturation Oxygen saturation in Arterial blood by Pulse oximetry Heart rate Provider Name and Address Organization Details Last Updated DateTime 03/16/2025 97 % 97 % 62 /min [facility] 03/16/2025 09:55:02 Date Recorded Body height Body mass index (BMI) Body weight Systolic And Diastolic Provider Name and Address Organization Details Last Updated DateTime 03/16/2025 167.64 cm 23.8 kg/m2 09366.52 g 126/74 mm[Hg] Stephanie Sinha [facility] 03/16/2025 09:18:13 Social History Question Answer Notes LastModified by Organizat ion Details LastModified Time Tobacco Smoking Status Former Smoker Not Available [facility] 04/27/2020 03:36:24 What Was The Date Of Your Most Recent Tobacco Screening? 03/16/2025 [email or web address] Information not available 03/16/2025 Sex: Unknown Functional Status Question Answer Note LastModified by Organization D etails LastModified Time Do you or have you ever used any other forms of tobacco or nicotine? No [email or web address] Information not available 02/09/2023 Mental Status None recorded. Family History Nothing Reported. Medical History No medical history recorded. Immunizations Vaccine Type Date Status Note Provider Nam e and Address Organization Details Recorded Time COVID-19, mRNA, LNP-S, PF, 30 mcg/0.3 mL dose 2 completed Not Available [facility] 04/05/2022 08:55:30 Influenza, split virus, quadrivalent, preservative 2 completed Not Available [facility] 04/05/2022 08:55:30 SARS-COV-2 (COVID-19) vaccine, UNSPECIFIED 3 completed Nick berkowitz [facility] 04/27/2023 11:29:45 influenza, unspecified formulation 4 completed Austin Santiago, DO [address] [facility], [place], [address], [facility] 07/20/2023 16:21:09 Influenza, split virus, quadrivalent, preservative 0 completed Not Available [facility] 04/05/2022 08:55:30 COVID-19, mRNA, LNP-S, PF, 30 mcg/0.3 mL dose 1 completed Not Available [facility] 04/05/2022 08:55:30 COVID-19, mRNA, LNP-S, PF, 30 mcg/0.3 mL dose 1 completed Not Available [facility] 04/05/2022 08:55:30 Past Encounters Encounter ID Performer Location Encounter Start Date Encounter Closed Date Diagnosis/Indication Diagnosis SNOMED-CT Code Diagnosis ICD10 Code Diagnosis IMO Codes Diagnosis Note [id number] Austin Santiago [facility] [address], [place] [address] 10/03/2017 08:58:44 10/03/2017 09:13:28 Cobalamin deficiency 670728804 E53.8 [id number] Austin Santiago [facility] [address], [place] [address] 11/02/2017 09:02:44 11/02/2017 10:57:14 Cobalamin deficiency 717420761 E53.8 [id number] [facility] [address], [place] [address] 11/28/2017 09:07:55 11/28/2017 10:29:51 Coronary arteriosclerosis 33600568 I25.10 doing ok overall no cp no sob Asthma 049609866 J45.90 9 here for rechk doing well not using proair etc peak flows reviewed pulse ox Foot pain 87293425 M79.6 72 pain is easing up and will follow and call if worse wear good supportive shoes [id number] Austin Santiago [facility] [address] [place] [address], [place] [address] 12/03/2017 09:03:15 12/03/2017 09:18:38 Cobalamin deficiency 942086612 E53.8 [id number] Austin Santiago [facility] [address], [place] [address] 01/02/2018 09:12:31 01/02/2018 10:59:31 Cobalamin deficiency 516272017 E53.8 [id number] Austin Santiago [facility] [address], [place] [address] 01/30/2018 08:59:09 01/30/2018 10:01:44 Cobalamin deficiency 186062349 E53.8 [id number] Austin Luisa Santiago [facility] [address] [facility],[place] [address] 02/27/2018 09:09:40 02/27/2018 14:02:18 Cobalamin deficiency 447236290 E53.8 [id number] Austin Luisa Santiago [facility] [address] [facility],[place] [address] 03/27/2018 08:57:34 03/27/2018 11:13:02 Cobalamin deficiency 345714079 E53.8 [id number] Austin Santiago [facility] [address],[place] [address] 04/24/2018 09:17:08 04/24/2018 10:23:29 Cobalamin deficiency 236269581 E53.8 [id number] Austin Santiago [facility] [address],[place] [address] 05/27/2018 08:59:26 05/27/2018 15:32:41 Cobalamin deficiency 334104602 E53.8 [id number] Austin HellerMisael Santiago [facility] [address],[place] [address] 06/14/2018 14:12:13 06/14/2018 15:59:47 Adult health examination 495325029 Z00.00 doing great no issues Active or passive immunization 927059114 Z23 [facility] pneumovax Abdominal aortic aneurysm screening 844907904 Z13.6 will order Hepatitis C screening 41 4873598 Z11.59 Coronary arteriosclerosis 50624254 I25.10 doing ok overall no cp no sob Eczema 70833459 L30.9 [id number] Austin Luisa Santiago [facility] [address] [facility], [place] [address] 06/26/2018 10:12:09 06/26/2018 11:12:08 Cobalamin deficiency 673864944 E53.8 [id number] Austin Santiago [facility] [address] [facility] [address] [address] 07/29/2018 13:26:50 07/29/2018 14:20:46 Cobalamin deficiency 107463260 E53.8 [id number] Austin HellerMisael Santiago [facility] [address] [facility] [address] [address] 08/14/2018 15:27:15 08/14/2018 15:56:02 Nausea 612052907 R11.0 unclear ? reflux Asthma 897119613 J45.90 9 stable Essential hypertension 93834683 I10 stable Gastroesop hageal reflux disease 937195842 K21.9 [id number] Austin Santiago [facility] [address] [facility] [address] [address] 08/28/2018 09:26:30 08/28/2018 10:07:50 Cobalamin deficiency 337568356 E53.8 [id number] Austin Santiago [facility] [address] [facility] [address] [address] 09/27/2018 09:27:40 09/27/2018 11:49:02 Cobalamin deficiency 455108894 E53.8 [id number] Austin HellerMisael Santiago [facility] [address] [facility] [address] [address] 10/28/2018 09:31:10 10/28/2018 15:08:17 Cobalamin deficiency 767501835 E53.8 [id number] Austin Luisa Santiago [facility] [address] [facility] [address] [address] 12/04/2018 09:23:46 12/04/2018 09:57:56 Essential hypertension 33769451 I10 excellent but am worried about the bradycard and his sx may be the atenolol and will need to decrease dose to 12.5 Cobalamin deficiency 190 091831 E53.8 needs labwork first Asthma 840432005 J45.90 9 here for rechk doing well not using proair etc peak flows reviewed pulse o will need to change albut to ventolin Fatigue 79900676 R53.83 could this be atenolol along with bradycard effects ? will decrease atenolol to 12.5 Bradycardia 56288670 R00 .1 feel this is secondary to his atenolol will decrease dose and rechk after lab too [id number] Austin Santiago [facility] [address] [place] [address],[place] [address] 12/18/2018 14:10:00 12/18/2018 15:19:51 Coronary arteriosclerosis 07831740 I25.10 doing ok overall no cp no sob Essential hypertension 61390921 I10 excellent but was worried about the bradycard and his sx may be the atenolol and decreased the dose to 12.5 and he has done very well with thisl. Acute rommel l insufficiency 473299022 N28.9 could this be from chad;[place] n [id number] Austin Santiago [facility] [address] [place] [address],[place] [address] 01/03/2019 09:29:16 01/03/2019 11:49:40 Cobalamin deficiency 288843181 E53.8 needs labwork first [id number] [facility] [address] [address] 02/03/2019 09:30:23 02/03/2019 12:13:33 Cobalamin deficiency 947734448 E53.8 needs labwork first [id number] [facility] [address] [place] [address] 03/03/2019 13:24:38 03/03/2019 14:19:41 Asthma 046758717 J45.909 here for rechk doing well not using proair etc peak flows reviewed will need to change albut to ventolin Essential hypertension 93522878 I10 excellent dose at 12.5 and he has done very well with thisl. Coronary arteriosclerosis 79604676 I25.10 doing ok overall no cp no sob Carpal vianca parth syndrome of right wrist 7836433627 48254 G56.01 Atopic dermatitis 733446 01 [place]20[place]9 [place] [id number] Austin Santiago [facility] [address] [facility],[place] [address] 03/07/2019 09:24:55 03/07/2019 09:34:02 Cobalamin deficiency 143705348 E53.8 needs labwork first [id number] Austin Veramarianna [facility] [address] [facility],[place] [address] 04/09/2019 09:13:57 04/09/2019 10:33:26 Abscess 190697016 L02.91 warm compress do not squeeze, need swelling to decrease so we can anesthetiz e properly Asthma 412961596 J45.90 9 stable Essential hypertension 00271834 I10 stable [id number] Austin Santiago [facility] [address] [facility], [place] [address] 04/18/2019 13:54:43 04/18/2019 15:16:40 Abscess 507700621 L02.91 acute infection appears resolved no further i&d required will monitor for return Essential hypertension 13850560 I10 stable Asthma 102018317 J45.90 9 stable Allergic rhinitis 710644 04 J30.9 Xerosis du e to atopic dermatitis 563695489 L85.3 moisturize consider otc allergy [id number] Austin Santiago [facility] [address] [facility],[place] [address] 05/09/2019 09:27:29 05/09/2019 09:31:53 Cobalamin deficiency 454848160 E53.8 needs labwork first [id number] Austin Santiago [facility] [address] [facility],[place] [address] 06/16/2019 09:25:30 06/16/2019 09:35:51 Cobalamin deficiency 354351468 E53.8 needs labwork first [id number] Austin Veramarianna [facility] [address] [facility],[place] [address] 07/21/2019 09:52:11 07/21/2019 10:38:40 Essential hypertension 13457731 I10 Atenolol stopped by Cards BP very well controlled Coronary arteriosclerosis 29048114 I25.10 doing ok overall no cp no sob Asthma 971840858 J45.90 9 Doing very well Discussed importance of influenza vaccine Folliculitis 66347420 L7 3.9 Across upper back and shoulders Will call if no improvemen t Cobalamin deficiency 190 161339 E53.8 Need to recheck next visit [id number] Austin Santiago [facility] [address] [facility] [address] [address] 07/23/2019 09:42:16 07/23/2019 09:47:30 Cobalamin deficiency 753869807 E53.8 Need to recheck next visit [id number] Austin Santiago [facility] [address] [facility] [address],[place] [address] 08/22/2019 13:58:33 08/22/2019 14:33:53 Cobalamin deficiency 117171557 E53.8 Need to recheck next visit [id number] Austin Santiago [facility] [address] [facility] [address],[place] [address] 09/22/2019 09:29:37 09/22/2019 09:44:58 Cobalamin deficiency 750713640 E53.8 Need to recheck next visit [id number] Austin Santiago [facility] [address] [facility] [address],[place] [address] 10/27/2019 09:57:17 10/27/2019 11:08:55 Cobalamin deficiency 458742455 E53.8 Need to recheck next visit [id number] Austin Santiago [facility] [address] [facility] [address],[place] [address] 11/24/2019 09:27:22 11/24/2019 10:05:26 Cobalamin deficiency 475235546 E53.8 Need to recheck next visit [id number] Austin Santiago [facility] [address] [facility] [address] [address] 12/17/2019 09:14:15 12/17/2019 11:44:56 Asthma 354907983 J45.909 Doing very well Discussed importance of influenza vaccine Essential hypertension 59609827 I10 Atenolol stopped by Cards and on losartan for his bp BP very well controlled Coronary arteriosclerosis 02259768 I25.10 doing ok overall no cp no sob Eczema 22442641 L30.9 will try halobeta [id number] Austin Santiago [facility] [address] [facility] [address] [address] 12/23/2019 09:46:26 12/23/2019 10:08:48 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 L side, dilated blood vessel Will watch for resolution Asthma 710601620 J45.90 9 Doing very well [id number] Austin Santiago [facility] [address] [facility] [address] [address] 12/24/2019 09:25:18 12/24/2019 09:39:43 Cobalamin deficiency 952400017 E53.8 Need to recheck next visit [id number] Austin Santiago [facility] [address] [facility] [address] [address] 01/26/2020 09:22:34 01/26/2020 10:10:57 Cobalamin deficiency 983197384 E53.8 Need to recheck next visit [id number] Austin Santiago [facility] [address] [facility] [address] [address] 02/25/2020 09:27:19 02/25/2020 11:31:37 Cobalamin deficiency 682167396 E53.8 Need to recheck next visit [id number] Austin Santiago [facility] [address] [facility] [address] [address] 03/26/2020 09:25:11 03/26/2020 10:34:11 Cobalamin deficiency 056782078 E53.8 Need to recheck next visit [id number] Austin Santiago [facility] [address] [facility] [address] [address] 03/31/2020 11:01:16 03/31/2020 11:38:56 Asthma 394444417 J45.909 stable Essential hypertension 28456428 I10 BP excellent today Biceps tendinitis 098661 007 M75.22 will try Aleve and see if improvemen [place] [id number] Austin Santiago [facility] [address] [place] [address] [address] [address] 04/26/2020 09:27:22 04/26/2020 09:44:39 Cobalamin deficiency 901213709 E53.8 Need to recheck next visit [id number] Austin Santiago [facility] [address],[place] [address] 05/25/2020 09:29:37 05/25/2020 10:17:23 Asthma 592841505 J45.909 stable Solitary n odule of lung 017395527 R91.[address] recommende d by ER Acid reflux 150190574 K2 1.9 will fu with GI consult Impaired f asting glycemia 478938908 R73.01 will check A1c per what patient said [id number] Austin Santiago [facility] [address] [place] [address],[place] [address] 05/26/2020 09:27:42 05/26/2020 09:33:44 Cobalamin deficiency 335006408 E53.8 Need to recheck next visit [id number] Austin Santiago [facility] [address] [place] [address],[place] [address] 06/28/2020 09:24:50 06/28/2020 10:27:28 Cobalamin deficiency 606600611 E53.8 Need to recheck next visit [id number] Austin Santiago [facility] [address],[place] [address] 06/30/2020 09:20:50 06/30/2020 11:06:01 Essential hypertension 00402417 I10 Atenolol stopped by Cards and on losartan for his bp and his BP very well controlled Diverticul itis of sigmoid colon 748401527 K57.32 has been quiet has an appt with GI later in month Coronary arteriosclerosis 33828051 I25.10 doing ok overall no cp no sob has remained asymptomat ic no change in meds per cardiology [id number] Austin Veramarianna [facility] [address] [facility] [address],[place] [address] 07/28/2020 09:29:03 07/28/2020 10:27:37 Cobalamin deficiency 027069263 E53.8 Need to recheck next visit [id number] Austin Veramarianna [facility] [address] [facility] [address],[place] [address] 08/27/2020 09:25:16 08/27/2020 10:25:58 Cobalamin deficiency 974061912 E53.8 Need to recheck next visit [id number] Austin HellerMisael Santiago [facility] [address] [facility] [address],[place] [address] 09/27/2020 09:31:52 09/27/2020 09:44:43 Cobalamin deficiency 703628875 E53.8 Need to recheck next visit [id number] Austin HellerMisael Santiago [facility] [address] [facility] [address],[place] [address] 10/29/2020 09:29:25 10/29/2020 13:38:03 Cobalamin deficiency 926292674 E53.8 Need to recheck next visit [id number] Austin HellerMisael Santiago [facility] [address] [facility] [address],[place] [address] 11/26/2020 09:29:37 11/26/2020 10:46:45 Cobalamin deficiency 295572299 E53.8 Need to recheck next visit [id number] Austin HellerMisael Santiago [facility] [address] [facility] [address],[place] [address] 12/08/2020 09:26:04 12/08/2020 10:42:25 Asthma 071213211 J45.909 Doing very well despite the pollen he cont to do well Essential hypertension 77475958 I10 on losartan for his bp and his BP very well controlled off the atenolol Coronary arteriosclerosis 15550777 I25.10 doing ok overall no cp no sob has remained asymptomat ic no change in meds per cardiology Tendinitis of left shoulder 4725568572 231317 M75.92 given ongoing problem with the shoulder we will order him a consult [id number] Austin Santiago [facility] [address] [facility],[place] [address] 12/29/2020 09:29:49 12/29/2020 09:45:52 Cobalamin deficiency 003817662 E53.8 Need to recheck next visit [id number] Austin Santiago [facility] [address] [facility],[place] [address] 01/12/2021 14:43:16 01/12/2021 15:23:22 Contact dermatitis 55117317 L23.7 [id number] Austin Santiago [facility] [address] [facility],[place] [address] 01/31/2021 09:29:14 01/31/2021 09:39:53 Cobalamin deficiency 866509792 E53.8 Need to recheck next visit [id number] Austin Santiago [facility] [address] [place] [address],[place] [address] 03/04/2021 09:28:05 03/04/2021 11:29:51 Cobalamin deficiency 570852916 E53.8 Need to recheck next visit [id number] Austin Santiago [facility] [address] [facility],[place] [address] 04/11/2021 09:30:11 04/11/2021 11:12:37 Cobalamin deficiency 896560123 E53.8 Need to recheck next visit [id number] Austin Santiago [facility] [address] [facility],[place] [address] 05/09/2021 09:45:01 05/09/2021 10:05:57 Cobalamin deficiency 361885382 E53.8 Need to recheck next visit [id number] Austin HellerMisael Santiago [facility] [address] [facility] [address], [place] [address] 06/08/2021 09:31:53 06/08/2021 15:35:16 Coronary arteriosclerosis 98225045 I25.10 doing ok overall no cp no sob has remained asymptomat ic no change in meds per cardiology Essential hypertension 84166074 I10 on losartan for his bp and his BP very well controlled off the atenolol Asthma 859719813 J45.90 9 Doing very well despite the pollen he cont to do well [id number] Austin Santiago [facility] [address] [facility], [place] [address] 08/08/2021 09:20:22 08/08/2021 09:31:40 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 Need to recheck next visit [id number] Austin Santiago [facility] [address] [facility] [address], [place] [address] 09/07/2021 09:23:24 09/07/2021 15:55:39 Cobalamin deficiency 409899364 E53.8 Need to recheck next visit [id number] Austin Santiago [facility] [address] [facility], [place] [address] 10/07/2021 09:26:51 10/11/2021 13:47:57 Cobalamin deficiency 842877762 E53.8 Need to recheck next visit [id number] Austin Santiago [facility] [address] [facility] [address], [place] [address] 11/07/2021 09:34:14 11/07/2021 12:17:16 Cobalamin deficiency 852730612 E53.8 had injection Dyspnea 502982125 R06.02 will fu with STAT imaging Dizziness 843231669 R42 will fu with STAT CT and US carotid [id number] Austin Santiago [facility] [address] [facility] [address],[place] [address] 12/05/2021 09:33:11 12/05/2021 10:52:47 Cobalamin deficiency [id number] E53.8 Need to recheck next visit [id number] Austin Santiago [facility] [address] [facility] [address],[place] [address] 12/07/2021 08:00:29 12/07/2021 15:39:07 Asthma 421479168 J45.Minna9 Doing very well despite the pollen he cont to do well Essential hypertension 07989494 I10 on losartan for his bp and his BP very well controlled off the atenolol [id number] Austin Santiago [facility] [address] [facility],[place] [address] 01/04/2022 09:27:17 01/04/2022 10:52:45 Cobalamin deficiency 051543645 E53.8 Need to recheck next visit [id number] Austin Santiago [facility] [address] [facility] [address],[place] [address] 02/03/2022 09:30:16 02/07/2022 11:03:58 Cobalamin deficiency 181600773 E53.8 Need to recheck next visit [id number] DON ROWE [facility] [address] [facility],[place] [address] 02/21/2022 14:30:54 02/21/2022 15:05:04 Right inguinal hernia 179492840 K40.90 will fu with general surgery for fu and surgical correction [id number] Austin Santiago [facility] [address] [facility] [address],[place] [address] 03/06/2022 09:27:30 03/06/2022 10:33:59 Cobalamin deficiency 068227067 E53.8 Need to recheck next visit [id number] Austin Santiago [facility] [address] [facility] [address],[place] [address] 03/15/2022 09:39:59 03/15/2022 14:51:43 Asthma 795578538 J45.909 Doing very well despite the pollen he cont to do well Essential hypertension 30096237 I10 on losartan for his bp and his BP very well controlled off the atenolol Coronary arteriosclerosis 51725574 I25.10 doing ok overall no cp no sob has remained asymptomat ic no change in meds per cardiology Diverticul itis of sigmoid colon 659381323 K57.32 has been quiet has an appt with GI later in month Eczema 71277354 L30.9 will try halobeta [id number] Austin Santiago [facility] [address] [facility] [address],[place] [address] 04/05/2022 10:30:05 04/05/2022 15:37:58 Cobalamin deficiency 349265952 E53.8 Need to recheck next visit [id number] Austin Santiago [facility] [address] [facility] [address] [address] 05/08/2022 09:29:30 05/08/2022 13:57:58 Cobalamin deficiency 197604019 E53.8 Need to recheck next visit [id number] Austin Santiago [facility] [address] [facility], [place] [address] 06/07/2022 09:25:24 06/07/2022 15:22:35 Cobalamin deficiency 033768543 E53.8 Need to recheck next visit [id number] Austni Santiago [facility] [address] [facility] [address], [place] [address] 07/07/2022 09:24:50 07/07/2022 10:05:18 Cobalamin deficiency 707276097 E53.8 had injection [id number] Austin Santiago [facility] [address] [facility] [address], [place] [address] 08/07/2022 09:29:58 08/07/2022 10:22:06 Cobalamin deficiency 186809772 E53.8 Need to recheck next visit [id number] Austin Santiago [facility] [address] [facility], [place] [facility] [place] [address] 09/06/2022 09:27:45 09/11/2022 11:07:48 Cobalamin deficiency 764065969 E53.8 Need to recheck next visit [id number] Austin Santiago DO [facility] [address] [facility] [address] 09/26/2022 11:27:08 09/26/2022 12:05:53 Asthma 992904019 J45.909 Doing very well despite the pollen he cont to do well Essential hypertension 61134464 I10 on losartan for his bp and his BP very well controlled off the atenolol Coronary arteriosclerosis 66337177 I25.10 doing ok overall no cp no sob has remained asymptomat ic no change in meds per cardiology his cholestero l shows HDL is 83 and LDL is 52 Nocturia 025748400 R35.1 believe it is secondary to fluid intake at night [id number] Austin Veramairanna [facility] [address] [facility], [place] [facility] [place] [address] 10/06/2022 09:29:42 10/06/2022 14:37:43 Cobalamin deficiency 653451648 E53.8 Need to recheck next visit [id number] Austin Moran Cheyenne [facility] [address] [facility], [place] [facility] [place] [address] 10/10/2022 10:22:53 10/10/2022 16:36:08 Clavicle injury 637235931 S29.9XXA [id number] Austin Santiago [facility] [address] [facility], [place] [facility] [place] [address] 11/08/2022 09:22:24 11/08/2022 09:36:49 Cobalamin deficiency [id number] E53.8 Need to recheck next visit [id number] Austin HellerMisael Santiago [facility] [address] [facility], [place] [address] 12/13/2022 11:00:00 12/13/2022 11:12:54 Cobalamin deficiency 168821665 E53.8 Need to recheck next visit [id number] Austin Santiago [facility] [address] [facility] [address],[place] [address] 12/25/2022 09:39:55 12/25/2022 11:20:00 Acute bronchitis 45518669 J20.8 take meds as prescribed call if no improvemen t or symptom change [id number] Austin Santiago [facility] [address] [facility] [address],[place] [address] 01/08/2023 09:29:59 01/08/2023 10:28:20 Cobalamin deficiency 217234387 E53.8 had injection [id number] Austin Veramarianna [facility] [address] [facility],[place] [address] 01/09/2023 15:57:33 01/09/2023 16:31:20 Asthma 606849188 J45.20 stable Coronary arteriosclerosis 40270500 I25.10 stable Essential hypertension 30748136 I10 BP excellent today Pre-surger y evaluation 809031114 Z01.818 The patient was seen in the office today for pre-op evaluation . All medical conditions on patient's problem list were addressed and are currently stable, no interventi on needed at this time. Based on history and physical performed, the patient is cleared for surgery. [id number] Austin Veramarianna [facility] [address] [facility],[place] [address] 02/09/2023 09:14:23 02/09/2023 11:09:44 Asthma 892457216 J45.20 Doing very well despite the pollen he cont to do well Essential hypertension 66714715 I10 on losartan for his bp and his BP very well controlled off the atenolol Coronary arteriosclerosis 85267448 I25.10 doing ok overall no cp no sob has remained asymptomat ic no change in meds per cardiology his cholestero l shows HDL is 83 and LDL is 52 Cobalamin deficiency 190 589726 E53.8 Need to recheck next visit [id number] Austin Santiago [facility] [address] [facility] [address],[place] [address] 02/07/2023 09:27:20 02/07/2023 10:38:30 Cobalamin deficiency [id number] E53.8 Need to recheck next visit [id number] Austin Santiago [facility] [address] [facility] [address],[place] [address] 03/09/2023 09:39:16 03/09/2023 11:12:38 Asthma 216212991 J45.20 [id number] Austin Santiago [facility] [address] [facility] [address],[place] [address] 04/11/2023 09:25:29 04/11/2023 10:04:06 Cobalamin deficiency 159397091 E53.8 Need to recheck next visit [id number] Austin Santiago [facility] [address] [facility] [address],[place] [address] 05/11/2023 09:26:45 05/11/2023 14:19:05 Cobalamin deficiency [id number] E53.8 Need to recheck next visit [id number] Austin Sanitago [facility] [address] [facility] [address],[place] [address] 06/08/2023 09:25:35 06/08/2023 10:23:15 Cobalamin deficiency 188220897 E53.8 Need to recheck next visit [id number] Austin Santiago [facility] [address] [facility] [address],[place] [address] 07/06/2023 09:36:48 07/06/2023 11:24:25 Cobalamin deficiency 071055110 E53.8 had injection [id number] Austin Santaigo [facility] [address] [facility] [address],[place] [address] 08/06/2023 09:46:15 08/06/2023 09:58:39 [id number] Austin Santiago [facility] [address] [facility], [place] [address] 08/29/2023 08:00:50 08/29/2023 13:44:20 Asthma 310118613 J45.20 Cobalamin deficiency 190 396974 E53.8 Need to recheck next visit Essential hypertension 04838559 I10 on losartan for his bp and his BP very well controlled off the atenolol Hereditary essential tremor 166681406 G25.0 Unintentio nal weight loss 922095237 R63.4 10-15 lbs chk lab Eczema 02038768 L30.9 will try halobeta [id number] Austin Santiago [facility] [address] [facility], [place] [address] 08/31/2023 09:19:59 08/31/2023 09:47:42 Cobalamin deficiency 859047626 E53.8 had injection [id number] Austin Santiago [facility] [address] [facility], it[place] [facility] [address] 10/01/2023 09:20:16 10/02/2023 08:31:49 Cobalamin deficiency 647736354 E53.8 Need to recheck next visit [id number] Austin Santiago [facility] [address] [facility], [place] [address] 2023 11:42:51 2023 13:31:29 Asthma 922978680 J45.20 quiet no issues Eczema 15586533 L30.9 stable Essential hypertension 67881344 I10 on losartan for his bp and his BP very well controlled off the atenolol Cobalamin deficiency 190 647717 E53.8 Need to recheck next visit Hereditary essential tremor 880863943 G25.0 no issue Pain of le ft acromioclavicular joint 070749423 M25.512 we will treat with diclofenac [id number] Austin Santiago [facility] [address] [facility] [address], [place] [address] 10/31/2023 09:27:50 10/31/2023 13:43:39 Cobalamin deficiency 674401274 E53.8 Need to recheck next visit [id number] Austin HellerMisael Santiago [facility] [address] [facility] [address],[place] [address] 12/03/2023 09:25:06 12/04/2023 08:33:07 Cobalamin deficiency 105200002 E53.8 Need to recheck next visit [id number] Austin HellerMisael Santiago [facility] [address] [facility],[place] [address] 12/18/2023 11:28:08 12/18/2023 12:11:31 Depression screening 537168096 Z13.31 negative Lumbago with sciatica 20 5273606 M54.41 will start on conservati ve therapy Loss of appetite 9356564 6 R63.0 agreed to additional work up since he is still losing weight without rmambc19 pounds down without trying Unexplaine d weight loss 117085253 R63.4 fu after lab work Cobalamin deficiency 190 487183 E53.8 had injection [id number] Austin Santiago [facility] [address] [facility],[place] [address] 01/08/2024 10:33:53 01/08/2024 16:02:13 Cobalamin deficiency 956491182 E53.8 Need to recheck next visit [id number] Austin Santiago [facility] [address] [facility],[place] [address] 01/28/2024 09:24:19 01/28/2024 09:48:30 Cobalamin deficiency 247085968 E53.8 Need to recheck next visit [id number] Austin Santiago [facility] [address] [facility],[place] [facility] [address] 02/27/2024 09:36:30 02/27/2024 09:42:21 Cobalamin deficiency 397738644 E53.8 Need to recheck next visit [id number] Austin Santiago [facility] [address] [facility] [address],[place] [address] 03/28/2024 09:24:49 03/28/2024 09:37:59 Cobalamin deficiency 995803494 E53.8 Need to recheck next visit [id number] Austin HellerMisael Santiago [facility] [address] [facility] [address],[place] [address] 04/15/2024 14:14:07 04/15/2024 14:46:52 Carpal tunnel syndrome of left wrist 1436136423 51011 G56.02 will set up with ortho if he needed itrecommen ded night brace and aleve for the next week Lesion of oral mucosa 10 91757109 017484 K13.70 will set up with specialist [id number] Austin Santiago [facility] [address] [facility],[place] [address] 05/02/2024 10:06:55 05/02/2024 13:32:08 [id number] Austin Santiago [facility] [address] [facility] [address],[place] [address] 05/28/2024 09:27:35 05/28/2024 09:54:46 Cobalamin deficiency 520809665 E53.8 Need to recheck next visit [id number] Austin Santiago [facility] [address] [facility] [address],[place] [address] 07/02/2024 09:32:45 07/02/2024 10:04:15 Cobalamin deficiency 464064627 E53.8 Need to recheck next visit [id number] Austin Santiago [facility] [address] [facility] [address],[place] [address] 07/30/2024 09:24:50 07/30/2024 09:51:58 Cobalamin deficiency 801759167 E53.8 Need to recheck next visit [id number] Austin Santiago [facility] [address] [facility] [address],[place] [address] 08/27/2024 09:26:25 08/27/2024 14:13:46 Cobalamin deficiency 825432461 E53.8 Need to recheck next visit [id number] Austin Santiago [facility] [address] [facility],[place] [address] 09/01/2024 14:42:26 09/01/2024 15:57:07 Asthma 322139792 J45.20 quiet no issues Depression screening 171 064288 Z13.31 neg Essential hypertension 63075708 I10 on losartan for his bp and his BP very well controlled off the atenolol Dizziness 148439173 R42 poss due to meds will have him hold the propranolo l 2nd dose Essential tremor 9432067 09 G25.0 using the propranolo l bidwill have him stop the second dose for now to see if affecting ffatigue or his breathing Fatigue 54492037 R53.83 will need some lab done cbc b12 cmp etc Hereditary essential tremor 334721922 G25.0 no issue Dyspnea on exertion 6084 5006 R06.09 states using his inhaler more gets exert dyspnea since the past 2-3 monhs as well [id number] Austin Santiago [facility] [address] [facility],[place] [address] 10/01/2024 13:24:02 10/01/2024 14:41:46 Cobalamin deficiency 845807688 E53.8 Need to recheck next visit [id number] Austin Santiago DO [facility] [address] [facility],[place] [address] 10/03/2024 11:47:59 10/03/2024 16:07:49 Productive cough 03414627 R05.1 has echo scheduledw ill have him also do a CXR Exacerbati on of intermittent asthma 213019596 J45.21 start on zpak and medrol Dyspnea on exertion 6084 5006 R06.09 echo scheduled already for thisdid tell pt if it worsens sig or develops chest pain to go to the ER this week [id number] Austin Santiago [facility] [address] [facility],[place] [address] 11/04/2024 15:44:28 11/04/2024 16:25:31 Asthma 898904905 J45.20 quiet no issues Cobalamin deficiency 190 848500 E53.8 Need to recheck next visit Essential hypertension 70154528 I10 on losartan for his bp and his BP very well controlled off the atenolol Depression screening 171 095589 Z13.31 neg Moderate c hronic obstructive pulmonary disease 510970001 J44.9 532683 [id number] Austin Santiago [facility] [address] [facility] [address],[place] [address] 10/31/2024 09:54:52 10/31/2024 10:53:40 Cobalamin deficiency 642301233 E53.8 Need to recheck next visit [id number] Austin Santiago [facility] [address] [facility] [address],[place] [address] 11/28/2024 15:58:39 11/28/2024 16:36:52 Depression screening 547570319 Z13.31 neg Asthma 179896354 J45.20 quiet no issues but did not tolerate the flutic/vivian met Essential hypertension 01147930 I10 on losartan for his bp and his bp is quite low will stop the propranolo l BP very well controlled off the atenolol [id number] Austin Santiago [facility] [address] [facility] [address],[place] [address] 12/03/2024 10:04:55 12/03/2024 14:16:24 Cobalamin deficiency 688629108 E53.8 08934 Need to recheck next visit [id number] Austin Santiago [facility] [address] [facility],[place] [address] 01/02/2025 09:32:06 01/02/2025 09:52:54 Cobalamin deficiency 894857614 E53.8 Need to recheck next visit [id number] Austin Santiago [facility] [address] [facility],[place] [address] 02/02/2025 09:29:11 02/02/2025 10:13:40 Cobalamin deficiency 716145859 E53.8 [id number] Need to recheck next visit [id number] Austin Santiago DO [facility] [address] [facility], [place] [address] 03/16/2025 09:12:20 03/16/2025 10:19:46 Coronary arteriosclerosis 65778839 I25.10 doing ok overall no cp no sob has remained asymptomat ic no change in meds per cardiology his cholestero l shows HDL is 83 and LDL is 52 Essential hypertension 72679060 I10 on losartan for his bp and his bp is quite low will stop the propranolo l BP very well controlled off the atenolol Loss of appetite 6029863 6 R63.0 will hold the rosuvastat in Unintentio nal weight loss 775152934 R63.4 00503036 10-15 lbs chk lab and will order ct abd Cobalamin deficiency 190 894018 E53.8 Need to recheck next visit Active or passive immunization 106690831 Z23 [facility] pneumovax General ex amination of patient [id number] Z00.00 [id number] doing great no issues [id number] Austin Santiago DO [facility] [address] [facility],[place] [address] 03/11/2025 09:25:54 03/11/2025 09:33:40 Cobalamin deficiency [id number] E53.8 Need to recheck next visit [id number] Austin Santiago DO [facility] [address] [facility], [place] [address] 04/13/2025 09:33:27 04/13/2025 09:48:33 Cobalamin deficiency [id number] E53.8 Need to recheck next visit [id number] Austin Santiago [facility] [address] [facility], [place] [address] 04/15/2025 16:00:45 04/15/2025 16:29:49 Depression screening [id number] Z13.31 neg Essential hypertension [id number] I10 on losartan for his bp and his bp is quite low will stop the propranolo l BP very well controlled off the atenolol Asthma 554780653 J45.20 quiet no issues but did not tolerate the flutic/vivian met Type 2 clay betes mellitus 94223909 E11.9 [id number] Nocturia 589965331 R35.1 believe it is secondary to fluid intake at night Health Concerns Section Related Observation LastModified by Organization Detai ls LastModified Time None Recorded Concern Status LastModified by Organization Details LastModified Time None Recorded Advance Directives Directive None Recorded Payers Insurance Date Sequence Insurance Name Policy Number Policy Ramirez Covered Member ID Ramirez Member ID Guarantor Name 04/10/2025 1 [facility] [id number] Erick Stephens [id number] Erick Stephens 12/11/2022 2 [employer] MEDICARE ADVANTAGE PLAN (MEDICARE REPLACEMENT HMO) [id number] Erick Stephens [id number] Erick Stephens 12/11/2022 2 [place]: [facility] [employer] SERVICES Erick Stephens [id number] Erick Stephens 12/11/2022 1 [facility] [id number] Erick Stephens [id number] Erick Stephens 01/14/2020 1 [employer] (PPO) [id number] Ebonie Stephens [id number] Erick Stephens 12/11/2022 2 [employer] [place] [employer] MEDICARE ADVANTAGE [facility] (MEDICARE REPLACEMENT HMO) [id number] Erick Stephens [id number] Erick Stephens Notes Date Note Type Note Provider Name and Address Organization Details Recorded Time 5 text/htm l Annual WellnessReported by PatientROS as noted in the HPI here for rechk and relates has a loss of appetite compared to the past relates over greg past few years has lost about 20 lbs this is unintendedno painsbowels are ok no blood urinating goodsleep is usually goodenergy level is ok ROB[facility] 03/16/2025 12:14:22 5 text/htm l Care Management - HypertensionReported [...] as noted in the HPI Austin Santiago, DO [address] [facility], [place], [address], [facility] 04/15/2025 16:29:48
--- OUTSIDE RECORDS SUMMARY | 2025-04-15 22:09 | XMS_ITS | Encounter Summary ---
Author Organization [facility] Address [address] [place] [address] Phone Care Team Providers Care Bead Wire Insulator Name Role Phone Austin Quinn Primary Care Provider [phone] Encounter Details Date Type Department Care Team (Late st Contact Info) Description 03/17/2025 Procedure [facility], Ct Scan - [address] [address] Social History Tobacco Use Types Packs/Day Years [...] Description 08/10/2025 9:00 AM EST Office Visit [facility] [address] [place] [address] [address] Floor, [address] [place] [address] Amadeo Ewing MD [address] [facility], [address] [address] [email or web address] documented as of this encounter Visit Diagnoses Not on filedocumented in this encounter Care Teams Bead Wire Insulator Relationship Specialty Start Date End Date Austin Quinn DO PCP - General 04/12/17 documented as of this encounter Additional Source Comments The information contained in this document represents components of the legal health record. It is not the complete legal health record.[facility]
--- OUTSIDE RECORDS SUMMARY | 2025-04-15 22:09 | XMS_ITS | Encounter Summary ---
Author Organization [facility] Address [address] [place] [address] Phone Care Team Providers Care Office Associate Name Role Phone Austin Quinn DO Primary Care Provider [phone] Reason for Referral * MRI/CAT Scan - Closed Specialty Diagnoses / Procedures Referred By Madysonac t Referred To Contact Radiology Diagnoses Abnormal weight loss Procedures CT Abdomen/Pelvis CHG CT SCAN,ABDOMENT AND PELVIS,W CONTRAST Austin Quinn DO [address] [place] [address] Phone: tel: fax: [email or web address] Referral ID Status Reason Start Date Expiration Date Visits Re quested Visits Authorized [id number] Closed 03/17/2025 05/16/2025 1 1 * MRI/CAT Scan - Closed Specialty Diagnoses / Procedures Referred By Angela mace Referred To Contact Radiology Diagnoses Abnormal weight loss Procedures CT Chest CHG DIAGNOSTIC COMPUTED TOMOGRAPHY THORAX W/CONTRAST Austin Quinn DO [address] [place] [address] Phone: tel: fax: mailto: Referral ID Status Reason Start Date Expiration Date Visits Re quested Visits Authorized [id number] Closed 03/17/2025 05/16/2025 1 1 Encounter Details Date Type Department Care Team ([facility] Contact Info) Description 03/17/2025 Transcribe Orders Virtual Department [address] [place] [address] Austin Quinn DO [address] [facility] [place] [address] [place] [address] Abnormal weight loss (Primary Dx) Social History [...] Upcoming Encounters Date Type Department Care Team ([facility] Contact Info) Description 08/10/2025 9:00 AM EST Office Visit [facility] [address] [facility] 3rd Floor, [address] [place] [address] Amadeo Ewing MD [address] [facility], [address] [place] [address] [email or web address] documented as of this encounter Results * CT ABDOMEN/PELVIS WITH CONTRAST (03/27/2025 6:55 [...] DO IMG CT ABD/PELVIS Final Result * CT CHEST WITH CONTRAST (03/27/2025 6:55 [...] clinician's provided indication for this examination in [facility]: Outside Radiology Order; weight loss TECHNIQUE: Multidetector [...] clinician's provided indication for this examination in [facility]:Outside Radiology Order; weight loss TECHNIQUE: Multidetector CT [...] nodules up to 5 mm since 06/11/2020. Austin Quinn DO [facility] CT CHEST Final Result documented in this encounter Visit Diagnoses Diagnosis Abnormal weight loss- Primary Loss of weight Abnormal weight loss Loss of weight documented in this encounter Care Teams Office Associate Relationship Specialty Start Date End Date Austin Quinn DO PCP - General 04/12/17 documented as of this encounter Additional Source Comments The information contained in this document represents components of the legal health record. It is not the complete legal health record.[facility]
[2025-04-16 05:16] LABS: Hemoglobin A1C 142.9474 umol/L; Total Hemoglobin (HGBA1C) 3623.3866 umol/L
== END 2025-04-15 16:31 | disposition home or self-care (01) ==
LOC: HO.MANLDS 16:30
PROVIDERS: Visit Provider Internal Medicine
DX: E11.9 Type 2 diabetes mellitus without complications (principal)
CPT/HCPCS: 36415; 83036